=== PATIENT | male | born 1960 | race Caucasian/White ===

== ENCOUNTER 2022-09-17 11:39 | Inpatient (IN) ==
[2022-09-17 13:03] LABS: INR 1.6 (0.9-1.1); Partial Thromboplastin Ratio 1.6; Partial Thromboplastin Time 44.7 Seconds (21.0-31.0); Prothrombin Time 16.4 Seconds (9.0-12.0)
--- NOTE | 2022-09-17 13:04 | Emergency Department Note ---
Impression & Plan End stage liver disease, LGI bleed, CKD (chronic kidney disease), Leukocytosis, Anemia ED Provider Note NAME: RICHARD MONTELONGO AGE: 61 SEX: M : 1960 ARRIVES VIA: Walk-In INFORMANT: Patient, ED PROVIDER(S): Rambo Wagner MD Chief Complaint: Rectal bleeding HPI: Patient presents with family member bedside due to concern for rectal bleeding that began last evening. Patient did have a recent polypectomy and colonoscopy completed on September 03 in [place]. Patient does have a known history of stage IV liver cirrhosis. Patient does have a history of falls but no recent head strike. The patient is not on any lactulose. They were concerned as they noticed bright red blood per rectum. No dark tarry stools. Patient does not take any blood thinning medications. No fevers chest pains or shortness of breath. Patient does complain of weakness. Patient has not drank alcohol in many many years. Patient does follow with a Dr. Egan in [place] and does receive some additional care at [facility] in [place]. ROS: See HPI for pertinent positives and negatives. A total of 10 systems were rev iewed and otherwise negative. Past medical history: See below Surgical history: See below Social history: See below Physical Exam: GENERAL: NAD, wearing a mask, non-toxic. EYE EXAM: Normal conjunctiva. PERRL, no anisocoria and EOM's grossly intact w/o pain. NECK: Supple, no nuchal rigidity, no adenopathy, non-tender. No signs of meningismus. FROM of the neck with good chin to chest and neck extension. No stridor. LUNGS: Clear to auscultation. Normal chest wall mechanics. HEART: NSR, no MRG. ABDOMEN: Abdomen soft, non-tender, normo-active bowel sounds, no masses, no rebound or guarding. BACK: No CVA TTP. SKIN: No rashes and no bruising. UPPER EXTREMITIES: Upper extremities are grossly normal. LOWER EXTREMITIES: Grossly normal, no edema. NEURO EXAM: A&O x3, cranial nerves II-XII grossly intact, normal speech, moves all 4 extremities. Differential diagnoses: Diverticulosis, AVM, coagulopathy, colitis, inflammatory bowel disease, malignancy, [place] tear, esophagitis, peptic ulcer disease, variceal bleed, gastritis, epistaxis, fissure, hemorrhoids, as well as other pathologies. Course: Patient was seen and evaluated the bedside. Full history physical exam was performed. EKG interpreted by me Imaging Studies: See Below Cardiac monitoring: An order was placed for continuous cardiac monitoring. The monitor shows a rate of 97 with sinus rhythm. MDM: Patient was seen due to concern for rectal bleeding. Blood work is obtained along with an ammonia and CT abdomen pelvis. Patient did receive octreotide PPI bolus and drip and normal saline. Patient does have a white count of 16 with a hemoglobin of 13.9. Thrombocytopenia noted at 73. Pro-Chintan was added and Rocephin ordered. The patient does have a decrease in bicarb and anion gap. BUN and creatinine of 66 and 3.35. No priors for comparison. Patient was ordered IV fluids. COVID also ordered. Patient does look and feel improved after IV fluids. The patient ammonia is negative. Pro-Chintan is not elevated. Patient's CT shows possible thickening of the left colon and rectum. Liver is cirrhotic. The patient has splenomegaly and ascites. Patient does not have significant abdominal pain on exam. It [place] the on-call hospitalist Joanne Malagon PA-C and the patient was admitted to the medicine service by Dr. Harding. Past Med/Surg History Medical History Cirrhosis Surgical History H/O rectal polypectomy History of colonoscopy Social History (Updated 09/17/22 @ 14:08 by Rambo Wagner MD) Smoking Status: Current every day smoker Cigarettes Per Day: 1; Second Hand Exposure: No; Do You Dip or Chew Tobacco: No; Tobacco Cessation Education Requested by Patient: No Hx Alcohol Use: No Hx Substance Use: No Preferred Language: Stateless Communication Ability: Effective Beliefs That Will Affect Care: None Current Living Situation: Significant Other Other Information That Helps Us Care for You: No Feels Safe at Home: Yes and No Is there a partner from a previous relationship who is making you feel unsafe now?: No Any Concerns about Your Family Situation: No Would You Like to Speak to Someone About Your Situation: No Safety Concerns: Feels Safe At This Time Assistive Devices: Cane, Glasses, Hearing Aid - Left and Hearing Aid - Right Assistive Devices Comment: glasses and hearing aid not here with patient Allergies Allergies Allergy/AdvReac Type Severity Reaction Status Date / Time INHALED ANTIHISTAMINES Allergy Severe THROAT Uncoded 09/17/22 15:53 SWELLS SHUT Home Meds Home Medications Medication Instructions Recorded Confirmed allopurinol 100 mg tablet 100 mg PO DAILY 09/17/22 09/17/22 ascorbic acid (vitamin C) 500 mg 500 mg PO DAILY 09/17/22 09/17/22 tablet (Vitamin C) buspirone 5 mg tablet 5 mg PO BID 09/17/22 09/17/22 carvedilol 3.125 mg tablet 3.125 mg PO BIDM 09/17/22 09/17/22 cyanocobalamin (vitamin B-12) 500 mcg sublingual DAILY 09/17/22 09/17/22 1,000 mcg sublingual tablet diazepam 10 mg tablet 10 mg PO BID PRN Anxiety 09/17/22 09/17/22 diphenoxylate-atropine 2.5 1 tab PO QID PRN Diarrhea 09/17/22 09/17/22 mg-0.025 mg tablet doxycycline hyclate 100 mg capsule 100 mg PO DIRECTED 09/17/22 09/17/22 duloxetine 30 mg capsule,delayed 30 mg PO BID 09/17/22 09/17/22 release furosemide 20 mg tablet (Lasix) 20 mg PO DAILY 09/17/22 09/17/22 lurasidone 60 mg tablet (Latuda) 60 mg PO DAILY 09/17/22 09/17/22 metformin 1,000 mg tablet 1,000 mg PO BIDM 09/17/22 09/17/22 metoprolol succinate 100 mg 100 mg PO DAILY 09/17/22 09/17/22 tablet,extended release 24 hr pantoprazole 40 mg tablet,delayed 40 mg PO DAILY 09/17/22 09/17/22 release pregabalin 300 mg capsule 300 mg PO BID 09/17/22 09/17/22 spironolactone 25 mg tablet 25 mg PO DAILY 09/17/22 09/17/22 tamsulosin 0.4 mg capsule 0.4 mg PO HS 09/17/22 09/17/22 topiramate 100 mg tablet 100 mg PO BID 09/17/22 09/17/22 Results & Data (ED) Vital Signs Vital Signs - 24 hr 09/17/22 11:45 09/17/22 12:58 09/17/22 14:00 Pulse Rate 52 L Pulse Rate [Apical] 98 H 74 Respiratory Rate 18 15 16 Blood Pressure 104/73 Blood Pressure [Right Arm] 127/82 125/62 Blood Pressure Mean 83 Blood Pressure Mean [Right Arm] 97 83 Blood Pressure Position Sitting Pulse Oximetry 99 96 98 Oxygen Delivery Method Room Air Room Air Room Air Sepsis Recent Fever Within 48 Hours No Sepsis New/Unexplained Change in Mental Status No Sepsis Action Taken by Nursing No Action Required Home Medications Current Medication List: was personally reviewed by me Laboratory Data Attestation: I reviewed the patient's lab results. Result diagrams: 09/17/22 11:59 09/17/22 16:47 Lab Results 09/17/22 09/17/22 09/17/22 Range/Units 11:59 11:59 11:59 WBC 16.54 H (4.8-10.8) K/ul RBC 4.74 (4.63-6.08) M/uL Hgb 13.9 L (14.0-18.0) g/dl Hct 38.2 L (40.1-51.0) % MCV 80.6 (80.0-100.0) fL MCH 29.3 (25.0-34.0) pg MCHC 36.4 H (32.0-36.0) g/dL RDW Std Deviation 49.1 H (36.4-46.3) fL RDW Coeff of Suzanne 17.0 H (11.5-14.5) % Plt Count 73 L (130-400) K/uL Platelet Estimate Decreased L (Normal) PT 16.4 H (9.0-12.0) Seconds INR 1.6 H (0.9-1.1) APTT 44.7 H (21.0-31.0) Seconds PTT Ratio 1.6 Sodium 140 (136-145) mmol/L Potassium 3.7 (3.5-5.1) mmol/L Chloride 109 H (98-107) mmol/L Carbon Dioxide 19 L (21-32) mmol/L Anion Gap 12 H (3-11) BUN 66 H (6-23) mg/dl Creatinine 3.35 H (0.6-1.4) mg/dl Est Cr Clr Drug Dosing Not Reportable Est GFR ( Amer) 22.0 ml/min Est GFR (Non-Af Amer) 19.0 ml/min BUN/Creatinine Ratio 19.7 (10-20) Glucose 175 H (70-99(Fasting)) mg/dl Calcium 9.1 (8.5-10.1) mg/dl Total Bilirubin 2.6 H (0.2-1.0) mg/dl AST 51 H (13-39) U/L ALT 40 (7-52) U/L Alkaline Phosphatase 152 H (34-104) U/L Ammonia (18-72) umol/L Total Protein 6.9 (6.0-8.3) gm/dl Albumin 3.2 L (3.4-5.0) gm/dl Globulin 3.7 (2.5-4.0) gm/dl Albumin/Globulin Ratio 0.9 (0.9-2) SARS-CoV-2, RNA, NAAT (NEGATIVE) Blood Type Antibody Screen 09/17/22 09/17/22 09/17/22 Range/Units 12:55 13:51 15:16 WBC (4.8-10.8) K/ul RBC (4.63-6.08) M/uL Hgb (14.0-18.0) g/dl Hct (40.1-51.0) % MCV (80.0-100.0) fL MCH (25.0-34.0) pg MCHC (32.0-36.0) g/dL RDW Std Deviation (36.4-46.3) fL RDW Coeff of Suzanne (11.5-14.5) % Plt Count (130-400) K/uL Platelet Estimate (Normal) PT (9.0-12.0) Seconds INR (0.9-1.1) APTT (21.0-31.0) Seconds PTT Ratio Sodium (136-145) mmol/L Potassium (3.5-5.1) mmol/L Chloride (98-107) mmol/L Carbon Dioxide (21-32) mmol/L Anion Gap (3-11) BUN (6-23) mg/dl Creatinine (0.6-1.4) mg/dl Est Cr Clr Drug Dosing Est GFR ( Amer) ml/min Est GFR (Non-Af Amer) ml/min BUN/Creatinine Ratio (10-20) Glucose (70-99(Fasting)) mg/dl Calcium (8.5-10.1) mg/dl Total Bilirubin (0.2-1.0) mg/dl AST (13-39) U/L ALT (7-52) U/L Alkaline Phosphatase (34-104) U/L Ammonia 34.0 (18-72) umol/L Total Protein (6.0-8.3) gm/dl Albumin (3.4-5.0) gm/dl Globulin (2.5-4.0) gm/dl Albumin/Globulin Ratio (0.9-2) SARS-CoV-2, RNA, NAAT NEGATIVE (NEGATIVE) Blood Type O Positive Antibody Screen NEGATIVE Administered Medications Pantoprazole Sodium 40 mg/ (Dextrose) 100 mls @ 20 mls/hr IV Q5H JASON Stop: 10/17/22 13:44 Last Admin: 09/17/22 16:07 Dose: 8 mg/hr, 20 mls/hr Documented By: ML Lactated Ringer's (Lr) 1,000 mls @ 125 mls/hr IV .Q8H JASON Stop: 09/18/22 01:40 Last Admin: 09/17/22 18:35 Dose: 125 mls/hr Documented By: LCS Discontinued Medications Sodium Chloride (Nss 1000ml) 1,000 mls @ 999 mls/hr IV .Q1H1M ONE Stop: 09/17/22 14:28 Last Infusion: 09/17/22 15:35 Dose: 0 mls/hr Documented By: Admin: 09/17/22 13:48 Dose: 999 mls/hr Documented By: ML Pantoprazole Sodium (Protonix Bolus/Drip) 0 mls @ 1 mls/hr IV ONE STA Stop: 09/17/22 13:29 Last Admin: 09/17/22 16:11 Dose: Not Given Documented By: ML Pantoprazole Sodium 80 mg/ (Dextrose) 120 mls @ 400 mls/hr IV NOW ONE Stop: 09/17/22 13:45 Last Infusion: 09/17/22 15:35 Dose: 0 mls/hr Documented By: Admin: 09/17/22 13:55 Dose: 400 mls/hr Documented By: ML Octreotide Acetate 100 mcg/ (Syringe) 10 mls @ 3 mls/min IV NOW STA Stop: 09/17/22 13:31 Last Admin: 09/17/22 13:55 Dose: 3 mls/min Documented By: DICK Ceftriaxone Sodium (Rocephin) 2,000 mg in 70 mls @ 140 mls/hr IV NOW STA Stop: 09/17/22 14:36 Last Infusion: 09/17/22 16:11 Dose: 0 mls/hr Documented By: Admin: 09/17/22 15:41 Dose: 140 mls/hr Documented By: DICK Miscellaneous (Stat Iv) 1 each N/A NOW STA Stop: 09/17/22 13:29 Last Admin: 09/17/22 16:11 Dose: Not Given Documented By: DICK Imaging Data Radiologist's Impression: Abdomen/Pelvis CT 09/17/22 13:28 CT SCAN OF THE ABDOMEN AND PELVIS WITHOUT IV CONTRAST CLINICAL HISTORY: Hematochezia. Cirrhosis. COMPARISON STUDY: No priors. TECHNIQUE: CT scan of the abdomen and pelvis is performed from the lung bases to the proximal femora. Images are reviewed in the axial, sagittal, and coronal planes. IV contrast was not administered for this examination. Note that the examination was performed in suboptimal fashion without oral and IV contrast. A dose lowering technique was utilized adhering to the principles of ALARA. CT DOSE: 506.85 mGycm FINDINGS: Lung bases: The heart is normal in size and without pericardial effusion. The coronary arteries are densely calcified. The lung bases are clear. There is a small to moderate hiatal hernia. Esophageal varices are suspected. Liver: The unenhanced liver is cirrhotic morphology and heterogeneous in attenuation. There is hypertrophy of the left lobe and nodularity of the surface contour. There is no intrahepatic biliary ductal dilatation. There is recanalization of the periumbilical vein. Collateral vessels are noted in the upper abdomen and retroperitoneum. Gallbladder: There are calcified gallstones without CT evidence of acute cholecystitis. Spleen: The spleen is enlarged measuring 16.2 cm in length. Pancreas: The unenhanced pancreas is atrophic and grossly unremarkable. Adrenal glands: Unremarkable. Kidneys: The unenhanced kidneys demonstrate cortical atrophy and/or without hydronephrosis. There are no renal calculi identified. There is no evidence of contour deforming renal mass lesion. Abdominal vasculature: The abdominal aorta is normal in course and caliber noting moderate atherosclerotic calcification. Bowel: No bowel obstruction is seen. Question wall thickening of the rectum and left colon with mild surrounding infiltration. There is mild diverticulosis of the right colon without CT evidence of acute diverticulitis. The appendix is not identified and reported surgically absent. Peritoneum: There is a small volume of abdominopelvic ascites. No in traperitoneal free air is seen. Lymphadenopathy: None. Pelvic viscera: The prostate gland is diminutive and heterogeneous. The bladder wall is mildly thickened/trabeculated indicating chronic outlet obstruction. Skeletal structures: The skeletal structures are osteopenic. There is postoperative and spondylotic change seen in the lumbar spine there No lytic or blastic lesions are seen. There is a subacute to chronic right transverse process fracture of L3. There are subacute to chronic right posterior rib fractures. IMPRESSION: 1. Significantly suboptimal examination without oral and IV contrast. 2. Question wall thickening of the left colon and rectum with surrounding infiltration. Correlate clinically for evidence of a nonspecific proctocolitis. 3. The liver is cirrhotic in morphology and heterogeneous in attenuation. 4. Splenomegaly, ascites, and abdominal collaterals indicate portal hypertension. 5. Cholelithiasis. 6. Additional findings as above. ACT 112: Negative or not required by law. Electronically signed by: Hawk Mendoza M.D. 09/17/2022 2:52 PM Discharge Plan Visit Data Chief Complaint: Rectal Bleed Stated Complaint: HEMORAGE , RECTAL ED Provider: Rambo Wagner Discharge Problem: End stage liver disease, LGI bleed, CKD (chronic kidney disease), Leukocytosis, Anemia Patient Disposition: Admitted As Inpatient Discharge Instructions Interventions: ED Discharge Assessment Last Done: 09/17/22 17:01
[2022-09-17 13:09] LABS: Alanine Aminotransferase 40 U/L (7-52); Albumin Globulin Ratio 0.9 (0.9-2); Albumin Level 3.2 gm/dl (3.4-5.0); Alkaline Phosphatase 152 U/L (34-104); Anion Gap 12 (3-11); Aspartate Aminotransferase 51 U/L (13-39); BUN Creatinine Ratio 19.7 (10-20); Bilirubin,Total 2.6 mg/dl (0.2-1.0); Blood Urea Nitrogen 66 mg/dl (6-23); Calcium 9.1 mg/dl (8.5-10.1); Carbon Dioxide 19 mmol/L (21-32); Chloride 109 mmol/L (98-107); Globulin 3.7 gm/dl (2.5-4.0); Glucose 175 mg/dl (70-99(Fasting)); Potassium 3.7 mmol/L (3.5-5.1); Sodium 140 mmol/L (136-145); Total Protein 6.9 gm/dl (6.0-8.3)
[2022-09-17 13:21] LABS: Hematocrit (blood only) 38.2 % (40.1-51.0); Hemoglobin 13.9 g/dl (14.0-18.0); Mean Corpuscular Hemoglobin 29.3 pg (25.0-34.0); Mean Corpuscular Hgb Conc 36.4 g/dL (32.0-36.0); Mean Corpuscular Volume 80.6 fL (80.0-100.0); Platelet Count 73 K/uL (130-400); Platelet Estimate Decreased (Normal); RDW Standard Deviation 49.1 fL (36.4-46.3); Red Blood Count 4.74 M/uL (4.63-6.08); White Blood Count 16.54 K/ul (4.8-10.8)
[2022-09-17] MEDS ORDERED: SODIUM CHLORIDE 0.9% 1000ML 1,000 ML IV ONE (13:28)
[2022-09-17] MEDS ORDERED: STAT IV STA (13:28)
[2022-09-17] MEDS ORDERED: OCTREOTIDE ACETATE 100 MCG in SYRINGE 9 ML IV STA (13:28)
[2022-09-17] MEDS ORDERED: PANTOPRAZOLE BOLUS/DRIP 1 EACH IV STA (13:28)
[2022-09-17] MEDS ORDERED: PANTOprazole 80 MG in DEXTROSE 5% 100 ML IV ONE (13:28)
[2022-09-17] MEDS ORDERED: cefTRIAXone SODIUM 2,000 MG/70 ML BAG IV STA (14:07)
--- NOTE | 2022-09-17 14:53 | CT Scan Report ---
CT SCAN OF THE ABDOMEN AND PELVIS WITHOUT IV CONTRAST CLINICAL HISTORY: Hematochezia. Cirrhosis. COMPARISON STUDY: No priors. TECHNIQUE: CT scan of the abdomen and pelvis is performed from the lung bases to the proximal femora. Images are reviewed in the axial, sagittal, and coronal planes. IV contrast was not administered for this examination. Note that the examination was performed in suboptimal fashion without oral and IV contrast. A dose lowering technique was utilized adhering to the principles of ALARA. CT DOSE: 506.85 mGycm FINDINGS: Lung bases: The heart is normal in size and without pericardial effusion. The coronary arteries are d ensely calcified. The lung bases are clear. There is a small to moderate hiatal hernia. Esophageal va rices are suspected. Liver: The unenhanced liver is cirrhotic morphology and heterogeneous in attenuation. There is hypert rophy of the left lobe and nodularity of the surface contour. There is no intrahepatic biliary ductal dilatation. There is recanalization of the periumbilical vein. Collateral vessels are noted in the u pper abdomen and retroperitoneum. Gallbladder: There are calcified gallstones without CT evidence of acute cholecystitis. Spleen: The spleen is enlarged measuring 16.2 cm in length. Pancreas: The unenhanced pancreas is atrophic and grossly unremarkable. Adrenal glands: Unremarkable. Kidneys: The unenhanced kidneys demonstrate cortical atrophy and/or without hydronephrosis. There are no renal calculi identified. There is no evidence of contour deforming renal mass lesion. Abdominal vasculature: The abdominal aorta is normal in course and caliber noting moderate atheroscle rotic calcification. Bowel: No bowel obstruction is seen. Question wall thickening of the rectum and left colon with mild surrounding infiltration. There is mild diverticulosis of the right colon without CT evidence of acut e diverticulitis. The appendix is not identified and reported surgically absent. Peritoneum: There is a small volume of abdominopelvic ascites. No intraperitoneal free air is seen. Lymphadenopathy: None. Pelvic viscera: The prostate gland is diminutive and heterogeneous. The bladder wall is mildly thicke collin/trabeculated indicating chronic outlet obstruction. Skeletal structures: The skeletal structures are osteopenic. There is postoperative and spondylotic c hange seen in the lumbar spine there No lytic or blastic lesions are seen. There is a subacute to chr onic right transverse process fracture of L3. There are subacute to chronic right posterior rib fract ures. IMPRESSION: 1. Significantly suboptimal examination without oral and IV contrast. 2. Question wall thickening of the left colon and rectum with surrounding infiltration. Correlate cli nically for evidence of a nonspecific proctocolitis. 3. The liver is cirrhotic in morphology and heterogeneous in attenuation. 4. Splenomegaly, ascites, and abdominal collaterals indicate portal hypertension. 5. Cholelithiasis. 6. Additional findings as above. ACT 112: Negative or not required by law. Electronically signed by: Hawk Mendoza M.D. 09/17/2022 2:52 PM
--- NOTE | 2022-09-17 15:31 | History & Physical Report ---
Date of Service September 17, 2022 Assessment & Plan (1) End stage liver disease: Plan: - Patient receives care from [facility] in [place], in process of obtaining records. - Colonoscopy with polypectomy 09/03/2022 in [place]. - CTAP: Question wall thickening of the left colon and rectum with surrounding infiltration. Correlate clinically for evidence of a nonspecific proctocolitis. - Ammonia level 34. - Meld score: 27, 19.6% estimated 3-month mortality. - INR 1.6, T bili 2.6, sodium 140, creatinine 3.35, platelets 73 - Obtaining outpt records for further planning. (2) LGI bleed: Plan: - BRBPR since last evening. No CP, palpitaions, SOB, syncope, pain. - Colonoscopy with polypectomy 09/03/2022 in [place]. - Hgb 13.9 on admission. - Type and screen obtained in ED. - Trend H/H. - Started on PPI drip, octreotide, Rocephin in ED. - Continue IV Protonix and octreotide, as well as Rocephin given elevated WBC. Continue. - GI consulted. (3) CKD (chronic kidney disease): Plan: - Cr 3.36, unsure if new or chronic. Obtaining records. - IVF repletion, repeat BMP in AM. - bicarb 19, AG 12, repeat after IVF in ED. - Avoid nephrotoxins, renally dose as able. (4) Leukocytosis: Plan: - WBC 16, unknown etiology, reactive vs infection, covered in ED prophylactically in Rocephin, will continue, UA pending, CT with possible protocolitis. (5) Anemia: Plan: - Hgb 13.9, unknown baseline, trend as above for LGIB. Plan - Admit to PCU. - SCDS, no chemoppx given LGI blled. History of Present Illness Chief Complaint: bloody diarrhea x 1 day Primary Care Provider: Almas Egan Darius Carter is a 61-year-old male with a past medical history of end-stage liver cirrhosis with known esophageal varices, low back pain, gout, venous stasis, anxiety,, hypertension, diabetes with neuropathy, migraine headaches who presents today with rectal bleeding that began last night. Had a polypectomy removed on September 03 in [place], had been doing well since then, however last night noted bright red blood that had soaked through his diaper and pants. He notes over the last 2 months he has had frequent nonbloody, nonpainful diarrhea and believes that is the reason he had a colonoscopy performed. He also has a 35 pound weight loss. He has had gait difficulties and weakness, no fever chills, abdominal pain, chest pain, shortness of breath, palpitations, hematochezia. Upon presentation to the ED, patient's vital signs have been within normal limits and stable. No prior labs available for reference, he has an elevated WBC at 16, Hgb 13.9, platelet count 73. INR 1.6. Bicarb slightly decreased 19, AG 12, BUN 66, creatinine 3.35. Sodium 140, no electrolyte abnormalities. Glucose elevated 175. T bili 2.6, AST 51, ammonia pending. COVID-negative. CT of the abdomen pelvis is suboptimal as it was done without oral and IV contrast, there is questionable thickening of the left colon and rectum with surrounding infiltration cirrhotic liver, splenomegaly, ascites, abdominal collaterals indicative of portal hypertension. Cholelithiasis. Subacute to chronic right transverse process fracture of L3. Subacute/chronic right posterior rib fractures. ED course: Protonix gtt w/ bolus, 1L NS bolus, octreotide, Rocephin. Allergies Allergy/AdvReac Type Severity Reaction Status Date / Time INHALED ANTIHISTAMINES Allergy Severe THROAT Uncoded 09/17/22 15:53 SWELLS SHUT Home Medications Medication Instructions Recorded Confirmed Type allopurinol 100 mg tablet 100 mg PO DAILY 09/17/22 09/17/22 History ascorbic acid (vitamin C) 500 mg 500 mg PO DAILY 09/17/22 09/17/22 History tablet (Vitamin C) buspirone 5 mg tablet 5 mg PO BID 09/17/22 09/17/22 History carvedilol 3.125 mg tablet 3.125 mg PO BIDM 09/17/22 09/17/22 History cyanocobalamin (vitamin B-12) 500 mcg sublingual DAILY 09/17/22 09/17/22 History 1,000 mcg sublingual tablet diazepam 10 mg tablet 10 mg PO BID PRN Anxiety 09/17/22 09/17/22 History diphenoxylate-atropine 2.5 1 tab PO QID PRN Diarrhea 09/17/22 09/17/22 History mg-0.025 mg tablet doxycycline hyclate 100 mg capsule 100 mg PO DIRECTED 09/17/22 09/17/22 History duloxetine 30 mg capsule,delayed 30 mg PO BID 09/17/22 09/17/22 History release furosemide 20 mg tablet (Lasix) 20 mg PO DAILY 09/17/22 09/17/22 History lurasidone 60 mg tablet (Latuda) 60 mg PO DAILY 09/17/22 09/17/22 History metformin 1,000 mg tablet 1,000 mg PO BIDM 09/17/22 09/17/22 History metoprolol succinate 100 mg 100 mg PO DAILY 09/17/22 09/17/22 History tablet,extended release 24 hr pantoprazole 40 mg tablet,delayed 40 mg PO DAILY 09/17/22 09/17/22 History release pregabalin 300 mg capsule 300 mg PO BID 09/17/22 09/17/22 History spironolactone 25 mg tablet 25 mg PO DAILY 09/17/22 09/17/22 History tamsulosin 0.4 mg capsule 0.4 mg PO HS 09/17/22 09/17/22 History topiramate 100 mg tablet 100 mg PO BID 09/17/22 09/17/22 History Past Med/Surg History Medical History Cirrhosis Surgical History H/O rectal polypectomy History of colonoscopy Social History (Updated 09/17/22 @ 14:08 by Rambo Wagner MD) Smoking Status: Current every day smoker Hx Alcohol Use: No Hx Substance Use: No Preferred Language: Occitan Feels Safe at Home: Yes Review of Systems Review of Systems: Constitutional: weakness, fatigue, 35 lb manuela loss x 2 months; No fever/chills , myalgias, night sweats Eyes: No diplopia, no worsening or blurred vision ENT: normal hearing, no trouble swallowing Respiratory: No cough, sputum, dyspnea at rest or on exertion Cardiovascular: No chest pain, tightness or palpitations Abdomen: 2 months or diarrhea with copious BRBPR since last evening; No pain, nausea, vomiting, constipation, melena, hematemesis : Denies dysuria, hematuria, increased urgency/frequency, urinary retention Musculoskeletal: No joint pain, calf pain, swelling Neurologic: No weakness, numbness/tingling, or balance problems Psychiatric: No anxiety or depression Skin: No rash or itch Physical Exam Physical Exam: General: awake, alert, no apparent distress, appears chronically ill Head: Normocephalic, atraumatic ENT: PERRL, EOMI, no pharyngeal exudate, mucous membranes moist Chest: Clear to auscultation, on room air, no adventitious breath sounds Cardiac: Regular rate and rhythm, no murmur, no JVD, normal peripheral pulses, good capillary refill Abdominal: Secular epigastric nodule/mass palpable on exam, with severe pain on palpation; NABS x 4 quadrants, abdomen is otherwise soft, nontender to palpation, no rebound, guarding or tenderness Extremities: Normal inspection, no peripheral edema or erythema, calfs nontender to palpation Psych: Normal mood and affect Neuro: AAO x 3, strength intact bilaterally and rated 5/5, no motor deficits, speech is clear, no peripheral sensory deficits Skin: no rash or erythema Results & Data Results & Data ([facility]) Vital Signs (Past 12 Hours) Vital Signs Pulse Pulse Resp BP BP Pulse Ox O2 Del Method 09/17/22 12:58 98 H 15 127/82 96 Room Air 09/17/22 11:45 52 L 18 104/73 99 Room Air Laboratory Results Abnormal lab results 09/17/22 09/17/22 09/17/22 Range/Units 11:59 11:59 11:59 WBC 16.54 H (4.8-10.8) K/ul Hgb 13.9 L (14.0-18.0) g/dl Hct 38.2 L (40.1-51.0) % MCHC 36.4 H (32.0-36.0) g/dL RDW Std Deviation 49.1 H (36.4-46.3) fL RDW Coeff of Suzanne 17.0 H (11.5-14.5) % Plt Count 73 L (130-400) K/uL Platelet Estimate Decreased L (Normal) PT 16.4 H (9.0-12.0) Seconds INR 1.6 H (0.9-1.1) APTT 44.7 H (21.0-31.0) Seconds Chloride 109 H (98-107) mmol/L Carbon Dioxide 19 L (21-32) mmol/L Anion Gap 12 H (3-11) BUN 66 H (6-23) mg/dl Creatinine 3.35 H (0.6-1.4) mg/dl Glucose 175 H (70-99(Fasting)) mg/dl Total Bilirubin 2.6 H (0.2-1.0) mg/dl AST 51 H (13-39) U/L Alkaline Phosphatase 152 H (34-104) U/L Albumin 3.2 L (3.4-5.0) gm/dl Diagnostic Findings Abdomen/Pelvis CT 09/17/22 13:28 CT SCAN OF THE ABDOMEN AND PELVIS WITHOUT IV CONTRAST CLINICAL HISTORY: Hematochezia. Cirrhosis. COMPARISON STUDY: No priors. TECHNIQUE: CT scan of the abdomen and pelvis is performed from the lung bases to the proximal femora. Images are reviewed in the axial, sagittal, and coronal planes. IV contrast was not administered for this examination. Note that the examination was performed in suboptimal fashion without oral and IV contrast. A dose lowering technique was utilized adhering to the principles of ALARA. CT DOSE: 506.85 mGycm FINDINGS: Lung bases: The heart is normal in size and without pericardial effusion. The coronary arteries are densely calcified. The lung bases are clear. There is a small to moderate hiatal hernia. Esophageal varices are suspected. Liver: The unenhanced liver is cirrhotic morphology and heterogeneous in attenuation. There is hypertrophy of the left lobe and nodularity of the surface contour. There is no intrahepatic biliary ductal dilatation. There is recanalization of the periumbilical vein. Collateral vessels are noted in the upper abdomen and retroperitoneum. Gallbladder: There are calcified gallstones without CT evidence of acute cholecystitis. Spleen: The spleen is enlarged measuring 16.2 cm in length. Pancreas: The unenhanced pancreas is atrophic and grossly unremarkable. Adrenal glands: Unremarkable. Kidneys: The unenhanced kidneys demonstrate cortical atrophy and/or without hydronephrosis. There are no renal calculi identified. There is no evidence of contour deforming renal mass lesion. Abdominal vasculature: The abdominal aorta is normal in course and caliber noting moderate atherosclerotic calcification. Bowel: No bowel obstruction is seen. Question wall thickening of the rectum and left colon with mild surrounding infiltration. There is mild diverticulosis of the right colon without CT evidence of acute diverticulitis. The appendix is not identified and reported surgically absent. Peritoneum: There is a small volume of abdominopelvic ascites. No intraperitoneal free air is seen. Lymphadenopathy: None. Pelvic viscera: The prostate gland is diminutive and heterogeneous. The bladder wall is mildly thickened/trabeculated indicating chronic outlet obstruction. Skeletal structures: The skeletal structures are osteopenic. There is postoperative and spondylotic change seen in the lumbar spine there No lytic or blastic lesions are seen. There is a subacute to chronic right transverse process fracture of L3. There are subacute to chronic right posterior rib fractures. IMPRESSION: 1. Significantly suboptimal examination without oral and IV contrast. 2. Question wall thickening of the left colon and rectum with surrounding infiltration. Correlate clinically for evidence of a nonspecific proctocolitis. 3. The liver is cirrhotic in morphology and heterogeneous in attenuation. 4. Splenomegaly, ascites, and abdominal collaterals indicate portal hypertension. 5. Cholelithiasis. 6. Additional findings as above. ACT 112: Negative or not required by law. Electronically signed by: Hawk Mendoza M.D. 09/17/2022 2:52 PM ECG Additional Comments: Sinus tachycardia with occasional Premature ventricular complexes Abnormal ECG No previous ECGs available Confirmed by Denis Royal ([id number]) on 09/17/2022 3:36:58 PM Supervising Physician Co-Signing Physician Notes Patient seen and examined, chart reviewed, case discussed with Joanne Malagon PA-C and I agree with the assessment and plan as above except as otherwise noted Labs and images reviewed Darius is a 61-year-old male with a past medical history of stage IV liver cirrhosis with colonoscopy 09/03/2022 in [place] with polypectomy who presents with an episode of rectal bleeding. Denies melena, has bright red blood per rectum. Has not on any blood thinners. PCP is [facility] Dr. Julisa Peralta. EKG: Sinus tachycardia, QTC 481, T wave inversions in V4/V5/V6/V3/I/II no territorial ST segment elevation/depression. At bedside patient reports that he is having bleeding per rectum, but is without lightheadedness/dizziness/fever/chills. abdomen is not focally tender to palpation, heart rate is regular and tachycardic. Breathing is unlabored. History of cirrhosis, patient has not been told he has varices previously although he is not sure if he could have these. On admission AST 51, ALT 40, alk phos 152, bilirubin 2.6 with albumin 3.2. Ammonia is normal, creatinine is 3.35 with an unknown baseline. Sodium 140. INR is 1.[address] as noted above. Patient is covered for SBP prophylaxis with Rocephin. PPI drip continued, octreotide given as unclear if varices. GI consulted. Patient is normally seen by [facility] Stool PCR pending for nonspecific proct ocolitis. Hemodynamically stable at bedside. Continue medications as above. Did discuss with patient's PCPs office were willing to fax a updated med list which was used for med reconciliation. For remaining records consent for record transfer signed by patient, faxed to [facility]. Pending record faxes to [facility] Care Time/CCT Total # of Minutes Spent Total Time Spent with Patient: Total time spent is greater than 50% in coordination of care (as documented) at patient's floor/unit and/or counseling patient: Coding Level of Care Code 51587 Initial Inpt Care Lvl 3 Diagnoses End stage liver disease K72.10 LGI bleed K92.2 CKD (chronic kidney disease) N18.9 Leukocytosis D72.829 Anemia D64.9
--- NOTE | 2022-09-17 15:37 | Electrocardiogram Report ---
Test Reason : Blood Pressure : / mmHG Vent. Rate : 104 BPM Atrial Rate : 104 BPM P-R Int : 140 ms QRS Dur : 092 ms QT Int : 366 ms P-R-T Axes : 065 051 233 degrees QTc Int : 481 ms Sinus tachycardia with occasional Premature ventricular complexes Abnormal ECG No previous ECGs available Confirmed by Denis Royal ([id number]) on 09/17/2022 3:36:58 PM Referred By: Abhijeet Chaudhry Confirmed By:Denis Royal
[2022-09-17] MEDS: PANTOprazole 40 MG in DEXTROSE 5% 100 ML IV SCH ×2 (16:07→20:15)
[2022-09-17 17:31] LABS: BUN Creatinine Ratio 20.3 (10-20); Calcium 8.5 mg/dl (8.5-10.1); Creatinine Clr Calc Pharmacy 23.5 ml/min; Est GFR (African American) 22.9 ml/min; Est GFR (Non-African American) 19.7 ml/min; Potassium 3.6 mmol/L (3.5-5.1)
[2022-09-17] MEDS ORDERED: PHARMACY GLYCEMIC MGMT CONSULT PRN (17:41)
[2022-09-17] MEDS ORDERED: diazePAM 5 MG TABLET PO PRN (17:41)
[2022-09-17] MEDS ORDERED: LACTATED RINGER'S 1,000 ML IV SCH (17:41)
[2022-09-17] MEDS ORDERED: DEXTROSE 50% 50 ML SYRINGE IV PRN (17:41)
[2022-09-17] MEDS ORDERED: GLUCAGON FOR INJ 1 MG VIAL SQ PRN (17:41)
[2022-09-17] MEDS ORDERED: GLUCOSE 10 TAB/TUBE PO PRN (17:41)
[2022-09-17] MEDS ORDERED: GLUCOSE 40% GEL 15 GM TUBE PO PRN (17:41)
[2022-09-17] MEDS ORDERED: POLYETHYLENE (MIRALAX) 17 GM PACK PO PRN (17:41)
[2022-09-17] MEDS ORDERED: ONDANSETRON INJ 2 MG/ML 2 ML VIAL IV PRN (17:41)
[2022-09-17] MEDS ORDERED: CARBOHYDRATES FOR HYPOGLYCEMIA PO PRN (17:41)
[2022-09-17] MEDS ORDERED: DIPHENOXYLATE/ATROPINE 2.5/0.025MG TAB PO PRN (17:41)
[2022-09-17] MEDS ORDERED: ALUMINUM/MAGNESIUM SUSP 30 ML UDC PO PRN (17:41)
[2022-09-17] MEDS: TAMSULOSIN HCL 0.4 MG CAP PO SCH (20:15)
[2022-09-17] MEDS: TOPIRAMATE 100 MG TAB PO SCH (20:15)
[2022-09-17] MEDS: busPIRone 5 MG TAB PO SCH (20:16)
[2022-09-17] MEDS: PREGABALIN 150 MG CAP PO SCH (20:16)
[2022-09-17] MEDS: DULoxetine HCL 30 MG CAP PO SCH (20:16)
[2022-09-17] MEDS ORDERED: PANTOprazole 40 MG in SYRINGE 0 ML IV SCH (21:00)
[2022-09-17] MEDS: INSULIN ASPART PER UNIT SC SCH (21:02)
[2022-09-17 21:09] LABS: Hematocrit (blood only) 33.9 % (40.1-51.0); Hemoglobin 12.5 g/dl (14.0-18.0)
[2022-09-18] MEDS: PANTOprazole 40 MG in DEXTROSE 5% 100 ML IV SCH ×5 (01:51→19:56)
[2022-09-18 07:25] LABS: Albumin Globulin Ratio 0.9 (0.9-2); Albumin Level 2.7 gm/dl (3.4-5.0); Bilirubin,Total 1.6 mg/dl (0.2-1.0); Calcium 8.1 mg/dl (8.5-10.1); Creatinine Clr Calc Pharmacy 25.7 ml/min; Est GFR (African American) 25.6 ml/min; Est GFR (Non-African American) 22.1 ml/min; Magnesium 1.2 mg/dl (1.7-2.4); Potassium 3.4 mmol/L (3.5-5.1); Total Protein 5.7 gm/dl (6.0-8.3)
[2022-09-18 07:31] LABS: Basophils # (auto) 0.06 K/uL (0-0.2); Basophils % (auto) 0.6 %; Echinocytes 1+; Eosinophils # (auto) 0.02 K/uL (0-0.50); Eosinophils % (auto) 0.2 %; Hematocrit (blood only) 31.3 % (40.1-51.0); Hemoglobin 11.8 g/dl (14.0-18.0); Immature Granulocytes # (auto) 0.04 K/uL (0.00-0.02); Immature Granulocytes % (auto) 0.4 %; Lymphocytes # (auto) 0.72 K/uL (1.2-3.4); Lymphocytes % (auto) 7.6 %; Mean Corpuscular Hemoglobin 29.6 pg (25.0-34.0); Mean Corpuscular Hgb Conc 37.7 g/dL (32.0-36.0); Mean Corpuscular Volume 78.4 fL (80.0-100.0); Monocytes # (auto) 0.84 K/uL (0.24-0.82); Monocytes % (auto) 8.9 %; Neutrophils # (auto) 7.81 K/uL (1.4-6.5); Neutrophils % (auto) 82.3 %; Platelet Count 28 K/uL (130-400); Platelet Estimate Signific. Decreased (Normal); RDW Coefficient of Variation 16.7 % (11.5-14.5); RDW Standard Deviation 47.8 fL (36.4-46.3); Red Blood Count 3.99 M/uL (4.63-6.08); White Blood Count 9.49 K/ul (4.8-10.8)
[2022-09-18 09:13] LABS: Estimated Average Glucose 114 mg/dl; Hemoglobin A1C 5.6 % (4.5-5.6)
[2022-09-18] MEDS: LURASIDONE HCL 40 MG TAB PO SCH (09:14)
[2022-09-18] MEDS: ASCORBIC ACID 500 MG TAB PO SCH (09:15)
[2022-09-18] MEDS: DULoxetine HCL 30 MG CAP PO SCH ×2 (09:15→19:55)
[2022-09-18] MEDS: METOPROLOL SUCC 50MG EXT REL TAB PO SCH (09:15)
[2022-09-18] MEDS: allopurinoL 100 MG TAB PO SCH (09:15)
[2022-09-18] MEDS: busPIRone 5 MG TAB PO SCH ×2 (09:15→19:55)
[2022-09-18] MEDS: TOPIRAMATE 100 MG TAB PO SCH ×2 (09:15→19:55)
[2022-09-18] MEDS: CYANOCOBALAMIN (B-12) 500 MCG TABLET PO SCH (09:15)
[2022-09-18] MEDS: PREGABALIN 150 MG CAP PO SCH ×2 (09:17→19:55)
[2022-09-18] MEDS ORDERED: STAT IV STA (10:26)
[2022-09-18] MEDS ORDERED: PHYTONADIONE 5 MG in DEXTROSE 5% 50 ML IV ONE (10:26)
[2022-09-18 11:09] LABS: Hematocrit (blood only) 34.2 % (40.1-51.0); Hemoglobin 12.6 g/dl (14.0-18.0); Mean Corpuscular Hemoglobin 29.9 pg (25.0-34.0); Mean Corpuscular Hgb Conc 36.8 g/dL (32.0-36.0); Mean Platelet Volume 12.4 fL (9.4-12.4); Platelet Count 44 K/uL (130-400); Platelet Estimate Decreased (Normal); RDW Coefficient of Variation 17.1 % (11.5-14.5); RDW Standard Deviation 49.9 fL (36.4-46.3); Red Blood Count 4.22 M/uL (4.63-6.08); White Blood Count 12.32 K/ul (4.8-10.8)
[2022-09-18] MEDS: OCTREOTIDE ACETATE 500 MCG in DEXTROSE 5% 100 ML IV SCH ×2 (11:22→19:56)
--- NOTE | 2022-09-18 11:35 | Gastrointestinal Consultation ---
Date of Consultation September 18, 2022 Assessment & Plan (1) End stage liver disease: (2) LGI bleed: Plan cirrhosis with hematochezia, stable hgb, suspect diverticular bleeding, no hematemesis unlikely variceal bleed. Recs: continue octreotide and protonix drips for now continue abx for 7 days total for GI bleeding in cirrhotic for ppx NPO today, clear liquid diet tomorrow if stable prep with golytely tomorrow night at 6 pm, plan for EGD and colonoscopy thursday 09/20, NPO post midnight tuesday night except for prep supportive care, transfuse platelets to >50K Thank you for allowing me to participate in the care of this patient History of Present Illness Attending Physician: Beni Goel MD History of Present Illness 61-year-old male with hx ETOH cirrhosis c/b esophageal varcies, anxiety, HTN, Diabetic nephropathy here with rectal bleeding. Had colonoscopy with polypectomy 09/03 in [place] and was doing well post procedure but noticed hematochezia few days ago bright red blood per rectum. Now having maroon stools in the hospital, no hematemesis today. Has also been having nonbloody diarrhea for the last few months and a 35 lbs wt loss, trouble keeping food down. currently on ppi and octreotide drips and abx. platelets are low and he is being transfused them today. hgb noted to be 12.6 this morning, stable from before. CBC and CMP reviewed, VSS. Allergies Allergy/AdvReac Type Severity Reaction Status Date / Time INHALED ANTIHISTAMINES Allergy Severe THROAT Uncoded 09/17/22 15:53 SWELLS SHUT Home Medications Medication Instructions Recorded Confirmed Type allopurinol 100 mg tablet 100 mg PO DAILY 09/17/22 09/17/22 History ascorbic acid (vitamin C) 500 mg 500 mg PO DAILY 09/17/22 09/17/22 History tablet (Vitamin C) buspirone 5 mg tablet 5 mg PO BID 09/17/22 09/17/22 History carvedilol 3.125 mg tablet 3.125 mg PO BIDM 09/17/22 09/17/22 History cyanocobalamin (vitamin B-12) 500 mcg sublingual DAILY 09/17/22 09/17/22 History 1,000 mcg sublingual tablet diazepam 10 mg tablet 10 mg PO BID PRN Anxiety 09/17/22 09/17/22 History diphenoxylate-atropine 2.5 1 tab PO QID PRN Diarrhea 09/17/22 09/17/22 History mg-0.025 mg tablet doxycycline hyclate 100 mg capsule 100 mg PO DIRECTED 09/17/22 09/17/22 History duloxetine 30 mg capsule,delayed 30 mg PO BID 09/17/22 09/17/22 History release furosemide 20 mg tablet (Lasix) 20 mg PO DAILY 09/17/22 09/17/22 History lurasidone 60 mg tablet (Latuda) 60 mg PO DAILY 09/17/22 09/17/22 History metformin 1,000 mg tablet 1,000 mg PO BIDM 09/17/22 09/17/22 History metoprolol succinate 100 mg 100 mg PO DAILY 09/17/22 09/17/22 History tablet,extended release 24 hr pantoprazole 40 mg tablet,delayed 40 mg PO DAILY 09/17/22 09/17/22 History release pregabalin 300 mg capsule 300 mg PO BID 09/17/22 09/17/22 History spironolactone 25 mg tablet 25 mg PO DAILY 09/17/22 09/17/22 History tamsulosin 0.4 mg capsule 0.4 mg PO HS 09/17/22 09/17/22 History topiramate 100 mg tablet 100 mg PO BID 09/17/22 09/17/22 History Patient History Medical History Cirrhosis Surgical History H/O rectal polypectomy History of colonoscopy Social History Smoking Status: Current every day smoker Cigarettes Per Day: 1; Second Hand Exposure: No; Do You Dip or Chew Tobacco: No; Tobacco Cessation Education Requested by Patient: No Hx Alcohol Use: No Hx Substance Use: No Preferred Language: Djiboutian Communication Ability: Effective Beliefs That Will Affect Care: None Current Living Situation: Significant Other Other Information That Helps Us Care for You: No Feels Safe at Home: Yes and No Is there a partner from a previous relationship who is making you feel unsafe now?: No Any Concerns about Your Family Situation: No Would You Like to Speak to Someone About Your Situation: No Safety Concerns: Feels Safe At This Time Assistive Devices: Cane, Glasses, Hearing Aid - Left and Hearing Aid - Right Assistive Devices Comment: glasses and hearing aid not here with patient Review of Systems Constitutional: no fever, no chills and no weight loss Eyes: as per Subjective / HPI Ear, Nose, Mouth, Throat: as per Subjective / HPI Respiratory: no dyspnea and no dyspnea on exertion Cardiovascular: no chest pain and no palpitations Gastrointestinal: as per Subjective / HPI Musculoskeletal: no joint pain and no swelling Integumentary: no rash and no lesions Neurologic: no numbness and no paresthesia Psychiatric: no depression and no anxiety Endocrine: no fatigue Hematologic / Lymphatic: no easy bleeding and no easy bruising Physical Exam Constitutional: WD/WN, vitals as above Eyes: EOM intact bilaterally Neck: normal visual inspection Respiratory: normal respiratory effort, lungs clear to auscultation Cardiovascular: RRR, no murmur, no edema Gastrointestinal (Abdomen): Inspection/Auscultation: abdomen normal to inspection; abdomen not distended Percussion/Palpation: abdomen soft; abdomen nontender and no hepatosplenomegaly Musculoskeletal: Extremities: no cyanosis Gait: normal gait Skin: no rashes, warm and dry Neurologic: moves all extremities Psychiatric: A+Ox3, euthymic affect Results & Data ([facility]) Vital Signs (Past 12 Hours) Vital Signs Temp Pulse Pulse Resp BP BP Pulse Ox 09/18/22 11:07 36.6 C 76 16 110/84 100 09/18/22 10:38 36.4 C L 86 18 104/74 100 09/18/22 06:52 36.8 C 106 H 18 102/74 99 09/18/22 03:57 36.8 C 106 H 17 93/73 L 100 O2 Del Method 09/18/22 11:07 09/18/22 10:38 Room Air 09/18/22 06:52 Room Air 09/18/22 03:57 Room Air PG Care Time/CCT Total # of Minutes Spent Total Time Spent with Patient: Total time spent is greater than 50% in coordination of care (as documented) at patient's floor/unit and/or counseling patient: Coding Level of Care Code 50695 Initial Inpt Care Lvl 3 Diagnoses End stage liver disease K72.10 LGI bleed K92.2
--- NOTE | 2022-09-18 11:35 | Hospitalist Progress Note ---
Date of Service September 18, 2022 Assessment & Plan (1) LGI bleed: Plan: - BRBPR since last evening. Colonoscopy with polypectomy on 09/03/2022 in [place]. Hgb was 13.9 on admission. - Continue PPI drip & ceftriaxone - Resumed octreotide on 09/18 for continued BPBPR. - GI consulted -> Plan for NPO today, clears tomorrow with colon prep. Plan for upper/lower scope on Tuesday if he remains stable. - Trend H&H. (2) End stage liver disease: Plan: Patient receives care from [facility] in [place], in process of obtaining records. - Colonoscopy with polypectomy on 09/03/2022 in [place]. - CTAP: Question wall thickening of the left colon and rectum with surrounding infiltration. Correlate clinically for evidence of a non-specific proctocolitis. - Meld score: 27 on 09/17, 19.6% estimated 3-month mortality. - Obtaining outpt records for further planning. (3) CKD (chronic kidney disease): Plan: Cr 3.36 on admission, unsure if new or chronic. Obtaining records. - IVF repletion. - Cr today is 3.0; presume this is actually not far from baseline. Will monitor. (4) Leukocytosis: Plan: WBC 16, unknown etiology, reactive vs infection, covered in ED prophylactically in Rocephin. CT a/p on 09/17 with possible protocolitis. Reviewed CT myself and do not see any significant ascites that would be able to be sampled. - Continue ceftriaxone - UA pending - Will get abd u/s to check for ascites (5) Anemia: Plan: - Hgb 13.9, unknown baseline, trend as above for LGIB. Admission and Anticipated Discharge Date Admission Date: September 17, 2022 Subjective Still with bleeding. Feels very weak. Physical Exam Constitutional: WD/WN, vitals as above Eyes: EOM intact bilaterally; no conjunctival abnormality ENMT: external ear and nose normal, oropharynx normal Neck: trachea midline, no thyromegaly normal visual inspection Respiratory: normal respiratory effort, lungs clear to auscultation no respiratory distress Cardiovascular: RRR, no murmur, no edema Gastrointestinal (Abdomen): Inspection/Auscultation: abdomen normal to inspection; abdomen not distended Musculoskeletal: no cyanosis or clubbing, extremities motor strength 5/5 Skin: no rashes, warm and dry Neurologic: moves all extremities and awake Psychiatric: Orientation: alert, oriented to person and cooperative Results & Data Results & Data ([facility]) Vital Signs (Past 12 Hours) Vital Signs Temp Pulse Pulse Resp BP BP Pulse Ox 09/18/22 11:07 36.6 C 76 16 110/84 100 09/18/22 10:38 36.4 C L 86 18 104/74 100 09/18/22 06:52 36.8 C 106 H 18 102/74 99 09/18/22 03:57 36.8 C 106 H 17 93/73 L 100 O2 Del Method 09/18/22 11:07 09/18/22 10:38 Room Air 09/18/22 06:52 Room Air 09/18/22 03:57 Room Air PG Care Time/CCT Total # of Minutes Spent Total Time Spent with Patient: Total time spent is greater than 50% in coordination of care (as documented) at patient's floor/unit and/or counseling patient: Coding Level of Care Code 73982 Subseq Hosp Care Lvl 3 Diagnoses LGI bleed K92.2 End stage liver disease K72.10 CKD (chronic kidney disease) N18.9 Chronic kidney disease stage: unspecified stage Leukocytosis D72.829 Leukocytosis type: unspecified Anemia D64.9 Anemia type: unspecified type (1) CKD (chronic kidney disease) Chronic kidney disease stage: unspecified stage Qualified Code(s): N18.9 - Chronic kidney disease, unspecified (2) Leukocytosis Leukocytosis type: unspecified Qualified Code(s): D72.829 - Elevated white blood cell count, unspecified (3) Anemia Anemia type: unspecified type Qualified Code(s): D64.9 - Anemia, unspecified
[2022-09-18] MEDS: INSULIN ASPART PER UNIT SC SCH ×2 (12:17→18:39)
--- NOTE | 2022-09-18 14:37 | Pharmacy Report ---
Pharmacy Glycemic Short Note 2 - Date of Service September 18, 2022 - Glycemic Short BSG Results (Last 24 hours): 09/17/22 09/17/22 09/17/22 16:47 17:30 20:05 Glucose 130 H POC Glucose 117 H 116 H 09/17/22 09/18/22 09/18/22 23:45 06:12 07:41 Glucose 117 H POC Glucose 109 H 129 H 09/18/22 11:31 Glucose POC Glucose 137 H OUTPATIENT ANTIDIABETIC REGIMEN: * A1c = 5.6% * Metformin 1000 mg PO BID ASSESSMENT: * Darius is a 61-year-old male with a past medical history of end-stage liver cirrhosis, hypertension, diabetes with neuropathy, and CKD who presented with rectal bleeding. He is currently on pantoprazole and octreotide infusions. He only takes metformin at home, which has been held. * Patient was started on SQ novolog for correctional needs. Will continue to hold basal insulin based on A1c of 5.6% and NPO status. PLAN FOR INPATIENT GLYCEMIC CONTROL: * Hold outpatient oral diabetes medications * Basal insulin * none * Bolus insulin * NovoLog per scale ACHS or Q6hrs while NPO * Goal Range: Low 110 mg/dL - High 140 mg/dL * Correction Factor: 25 mg/dL/unit * Nutritional / Prandial insulin per carb ratio of 1 unit per 12 grams CHO consumed
[2022-09-18] MEDS: cefTRIAXone SODIUM 1,000 MG in DEXTROSE 5% 50 ML IV SCH (16:10)
--- NOTE | 2022-09-18 16:29 | Ultrasound Report ---
US abdomen limited CLINICAL HISTORY: Evaluate ascites. COMPARISON STUDY: Abdomen and pelvis CT 09/17/2022. FINDINGS: Cirrhotic liver with a small to moderate amount of perihepatic ascites. The spleen remains enlarged measuring 17 cm in length. Trace ascites seen throughout the remaining abdomen. IMPRESSION: 1. No change in the small amount of ascites. 2. Cirrhotic liver and splenomegaly again noted ACT 112: Negative or not required by law. Electronically signed by: Alistair Soriano M.D. 09/18/2022 4:27 PM
[2022-09-18] MEDS: TAMSULOSIN HCL 0.4 MG CAP PO SCH (19:55)
[2022-09-18 21:40] LABS: Hematocrit (blood only) 30.6 % (40.1-51.0); Mean Corpuscular Hemoglobin 29.5 pg (25.0-34.0); Mean Corpuscular Hgb Conc 35.9 g/dL (32.0-36.0); RDW Standard Deviation 49.7 fL (36.4-46.3); Red Blood Count 3.73 M/uL (4.63-6.08); White Blood Count 8.37 K/ul (4.8-10.8)
[2022-09-18 21:53] LABS: Mean Platelet Volume 12.2 fL (9.4-12.4); Platelet Count 32 K/uL (130-400)
[2022-09-19] MEDS: INSULIN ASPART PER UNIT SC SCH ×6 (01:03→21:20)
[2022-09-19] MEDS: PANTOprazole 40 MG in DEXTROSE 5% 100 ML IV SCH ×5 (01:06→20:30)
[2022-09-19] MEDS: OCTREOTIDE ACETATE 500 MCG in DEXTROSE 5% 100 ML IV SCH ×2 (06:17→16:26)
[2022-09-19 08:01] LABS: Albumin Globulin Ratio 0.9 (0.9-2); Albumin Level 2.8 gm/dl (3.4-5.0); BUN Creatinine Ratio 23.1 (10-20); Bilirubin,Total 1.3 mg/dl (0.2-1.0); Calcium 7.7 mg/dl (8.5-10.1); Creatinine Clr Calc Pharmacy 28.6 ml/min; Est GFR (African American) 29.4 ml/min; Est GFR (Non-African American) 25.4 ml/min; Magnesium 1.3 mg/dl (1.7-2.4); Potassium 2.9 mmol/L (3.5-5.1); Total Protein 5.8 gm/dl (6.0-8.3)
[2022-09-19 08:21] LABS: Hematocrit (blood only) 32.4 % (40.1-51.0); Hemoglobin 11.8 g/dl (14.0-18.0); Mean Corpuscular Hemoglobin 29.9 pg (25.0-34.0); Mean Corpuscular Hgb Conc 36.4 g/dL (32.0-36.0); Platelet Count 33 K/uL (130-400); Platelet Estimate Decreased (Normal); RDW Coefficient of Variation 17.2 % (11.5-14.5); RDW Standard Deviation 50.5 fL (36.4-46.3); Red Blood Count 3.95 M/uL (4.63-6.08); White Blood Count 7.15 K/ul (4.8-10.8)
[2022-09-19] MEDS: DULoxetine HCL 30 MG CAP PO SCH ×2 (08:23→22:41)
[2022-09-19] MEDS: busPIRone 5 MG TAB PO SCH ×2 (08:24→22:41)
[2022-09-19] MEDS: TOPIRAMATE 100 MG TAB PO SCH ×2 (08:24→22:43)
[2022-09-19] MEDS: ASCORBIC ACID 500 MG TAB PO SCH (08:24)
[2022-09-19] MEDS: allopurinoL 100 MG TAB PO SCH (08:24)
[2022-09-19] MEDS: METOPROLOL SUCC 50MG EXT REL TAB PO SCH (08:24)
[2022-09-19] MEDS: LURASIDONE HCL 40 MG TAB PO SCH (08:25)
[2022-09-19] MEDS: CYANOCOBALAMIN (B-12) 500 MCG TABLET PO SCH (08:26)
[2022-09-19] MEDS: PREGABALIN 150 MG CAP PO SCH ×2 (08:29→22:53)
[2022-09-19 08:41] LABS: INR 1.6 (0.9-1.1); Partial Thromboplastin Ratio 1.7; Prothrombin Time 16.5 Seconds (9.0-12.0)
[2022-09-19 08:54] LABS: Partial Thromboplastin Time 47.4 Seconds (21.0-31.0)
[2022-09-19] MEDS: MAGNESIUM SULFATE / D5W 1 GM/100 ML BAG IV SCH ×4 (09:36→14:38)
[2022-09-19] MEDS: POTASSIUM CHLORIDE 20 MEQ/15 ML UDC PO SCH ×2 (09:36→22:40)
--- NOTE | 2022-09-19 13:09 | Hospitalist Progress Note ---
Date of Service September 19, 2022 Assessment & Plan (1) LGI bleed: Plan: - BRBPR since last evening. Colonoscopy with polypectomy on 09/03/2022 in [place]. Hgb was 13.9 on admission. - Continue PPI drip & ceftriaxone - Resumed octreotide on 09/18 for continued BPBPR. - GI consulted -> Plan for clears today with colon prep. Plan for upper/lower scope on Tuesday if he remains stable. - Trend H&H. -> Stable today. - Transfused platelets on 09/18 & 09/19 for plts < 50k with bleeding. (2) End stage liver disease: Plan: Patient receives care from [facility] in [place], in process of obtaining records. - Colonoscopy with polypectomy on 09/03/2022 in [place]. - CTAP: Question wall thickening of the left colon and rectum with surrounding infiltration. Correlate clinically for evidence of a non-specific proctocolitis. - Meld score: 27 on 09/17, 19.6% estimated 3-month mortality. - Obtaining outpt records for further planning. (3) CKD (chronic kidney disease): Plan: Cr 3.36 on admission, unsure if new or chronic. Obtaining records. - IVF repletion. - Cr today is 2.6; presume this is actually not far from baseline. Will monitor. (4) Leukocytosis: Plan: WBC was 16 on admission. Unknown etiology, reactive vs infection, covered in ED prophylactically in [place]. CT a/p on 09/17 with possible protocolitis. - Abd u/s on 09/18 with perihepatic ascites. - UA pending - Continue ceftriaxone -> Feel SBP fairly unlikely given lack of abdominal pain, resolution of leukocytosis. -> Continue abx x 7 days for SBP ppx. (5) Anemia: Plan: Hgb was 13.9, unknown baseline, trend as above for LGIB. DVT ppx: SCDs - Holding heparin for bleeding and thrombocytopenia Admission and Anticipated Discharge Date Admission Date: September 17, 2022 Subjective Still fairly weak today. Reports one additional BM overnight with blood, but then had a BM this morning without any blood. Physical Exam Constitutional: WD/WN, vitals as above Eyes: EOM intact bilaterally; no conjunctival abnormality ENMT: external ear and nose normal, oropharynx normal Neck: trachea midline, no thyromegaly normal visual inspection Respiratory: normal respiratory effort, lungs clear to auscultation no respiratory distress Cardiovascular: RRR, no murmur, no edema Gastrointestinal (Abdomen): Inspection/Auscultation: abdomen normal to inspection; abdomen not distended Musculoskeletal: no cyanosis or clubbing, extremities motor strength 5/5 Skin: no rashes, warm and dry Neurologic: moves all extremities and awake Psychiatric: Orientation: alert, oriented to person and cooperative Results & Data Results & Data ([facility]) Vital Signs (Past 12 Hours) Vital Signs Temp Pulse Pulse Resp BP BP Pulse Ox 09/19/22 11:55 36.4 C L 63 14 103/71 99 09/19/22 11:44 36.4 C L 63 14 103/71 09/19/22 11:24 36.4 C L 67 17 95/68 L 93 09/19/22 10:34 36.5 C 67 14 96/68 L 99 09/19/22 10:12 36.5 C 67 14 98/71 L 100 09/19/22 07:42 61 09/19/22 07:18 36.5 C 63 16 128/78 100 09/19/22 03:51 36.5 C 64 17 119/77 100 O2 Del Method 09/19/22 11:55 09/19/22 11:44 09/19/22 11:24 Room Air 09/19/22 10:34 09/19/22 10:12 09/19/22 07:42 09/19/22 07:18 Room Air 09/19/22 03:51 Room Air PG Care Time/CCT Total # of Minutes Spent Total Time Spent with Patient: Total time spent is greater than 50% in coordination of care (as documented) at patient's floor/unit and/or counseling patient: Coding Level of Care Code 24733 Subseq Hosp Care Lvl 3 Diagnoses LGI bleed K92.2 End stage liver disease K72.10 CKD (chronic kidney disease) N18.9 Chronic kidney disease stage: unspecified stage Leukocytosis D72.829 Leukocytosis type: unspecified Anemia D64.9 Anemia type: unspecified type (1) CKD (chronic kidney disease) Chronic kidney disease stage: unspecified stage Qualified Code(s): N18.9 - Chronic kidney disease, unspecified (2) Leukocytosis Leukocytosis type: unspecified Qualified Code(s): D72.829 - Elevated white blood cell count, unspecified (3) Anemia Anemia type: unspecified type Qualified Code(s): D64.9 - Anemia, unspecified
[2022-09-19] MEDS: cefTRIAXone SODIUM 1,000 MG in DEXTROSE 5% 50 ML IV SCH (14:39)
[2022-09-19] MEDS: LAVAGE SOLUTION 4000ML PO SCH (18:39)
[2022-09-19 19:23] LABS: Hematocrit (blood only) 31.4 % (40.1-51.0); Hemoglobin 11.3 g/dl (14.0-18.0); Mean Corpuscular Hemoglobin 29.9 pg (25.0-34.0); Mean Corpuscular Volume 83.1 fL (80.0-100.0); Mean Platelet Volume 11.3 fL (9.4-12.4); Platelet Count 52 K/uL (130-400); Platelet Estimate Decreased (Normal); RDW Coefficient of Variation 17.8 % (11.5-14.5); RDW Standard Deviation 53.2 fL (36.4-46.3); Red Blood Count 3.78 M/uL (4.63-6.08); White Blood Count 8.97 K/ul (4.8-10.8)
[2022-09-19] MEDS: TAMSULOSIN HCL 0.4 MG CAP PO SCH (22:39)
[2022-09-20] MEDS: PANTOprazole 40 MG in DEXTROSE 5% 100 ML IV SCH ×2 (01:40→06:33)
[2022-09-20] MEDS: OCTREOTIDE ACETATE 500 MCG in DEXTROSE 5% 100 ML IV SCH (01:41)
[2022-09-20] MEDS: LAVAGE SOLUTION 4000ML PO SCH (06:04)
--- NOTE | 2022-09-20 07:35 | Hospitalist Progress Note ---
Date of Service September 20, 2022 Assessment & Plan (1) LGI bleed: Plan: 61-year-old male past medical history significant for end-stage liver disease with cirrhosis, anemia of chronic disease admitted for lower GI bleed and elevated creatinine (suspected REGINALD on CKD). LGI Bleed: - BRBPR reported on 09/17. Colonoscopy with polypectomy on 09/03/2022 in [place]. Hgb was 13.9 on admission, decreased to 11.3 on 09/20. - GI consulted and appreciate recommendations: - EGD performed 09/20 with small non-bleeding esophageal varices, no stomach varices, and mild portal gastropathy. - Colonoscopy unable to be performed due to inadequate prep. Can be done outpatient if patient's Hgb stabilizes given no further bleeding since admission. - Continue ceftriaxone x7 days for SBP prophylaxis, to complete on 09/24. - Octreotide given on admission, discontinued post-EGD. - Protonix gtt discontinued in favor of daily PO Protonix. - Transfused platelets on 09/18 & 09/19 for plts < 50k with bleeding; plts 43 today without reports/evidence of bleeding today. - Continue to trend H&H. (2) Acute blood loss anemia: Plan: - Hgb was 13.9 on admission with unknown baseline. Hgb 11.3 on 09/20. - DVT ppx: SCDs; holding heparin for bleeding and thrombocytopenia. - Continue to trend given LGIB. - Transfuse if Hgb <7. (3) End stage liver disease: Plan: - Patient receives care from [facility] in [place]. - CTAP: Questionable wall thickening of the left colon and rectum with surrounding infiltration. Correlate clinically for evidence of a non-specific proctocolitis. - MELD score: 27 on 09/17, 19.6% estimated 3-month mortality. - Patient will need close outpatient GI follow up. (4) CKD (chronic kidney disease): Plan: - Cr 3.36 on admission, unsure if new or chronic. Obtaining records. - Creatinine on 09/20 of 2.26, continued decrease with IVF. - Continue to monitor with daily BMP. (5) Leukocytosis: Plan: - WBC was 16 on admission. Covered in ED prophylactically in Roceph[place]. - CTAP on 09/17 with possible protocolitis; possible this is source. - Abd u/s on 09/18 with perihepatic ascites. - Continue ceftriaxone -> Feel SBP fairly unlikely given lack of abdominal pain, resolution of leukocytosis. - Continue x7 days for SBP ppx, to complete on 09/24. Plan - full code - clear liquid diet and advance as tolerated - SCDs for DVT ppx; no chemoprophylaxis at this time given low plts - Med/Tele Admission and Anticipated Discharge Date Admission Date: September 17, 2022 Subjective Patient had difficulty overnight with drinking all of the colon prep. He did not report any bloody BMs overnight or bleeding from other sites. Reports fatigue, but otherwise no complaints. Had difficulty with drinking all of the prep last night. Review of Systems Constitutional: no fever and no chills Eyes: no blind spots and no diplopia Ear, Nose, Mouth, Throat: no nasal congestion and no epistaxis Respiratory: no cough and no dyspnea Cardiovascular: no chest pain and no palpitations Gastrointestinal: no abdominal pain, no nausea, no vomiting and no blood in stools Genitourinary: no dysuria or no hematuria Musculoskeletal: no back pain and no neck pain Integumentary: no rash and no skin ulcer Neurologic: no localized weakness and no loss of sensation Psychiatric: no behavioral changes and no confusion Endocrine: + fatigue Hematologic / Lymphatic: + easy bleeding and + easy bruising Physical Exam Constitutional: WD/WN, vitals as above Respiratory: normal respiratory effort, lungs clear to auscultation no respiratory distress Cardiovascular: RRR, no murmur, no edema Gastrointestinal (Abdomen): Inspection/Auscultation: abdomen normal to inspection; abdomen not distended Musculoskeletal: no cyanosis or clubbing, extremities motor strength 5/5 Skin: no rashes, warm and dry Neurologic: moves all extremities and awake Psychiatric: Orientation: alert, oriented to person and cooperative Results & Data Results & Data ([facility]) Vital Signs (Past 12 Hours) Vital Signs Temp Pulse Pulse Resp BP BP Pulse Ox 09/20/22 07:33 60 09/20/22 04:00 36.5 C 62 18 108/69 94 09/20/22 02:33 57 L 09/20/22 00:24 36.5 C 62 18 106/72 100 09/19/22 20:24 34.7 C L 59 L 17 96/64 L 100 O2 Del Method 09/20/22 07:33 09/20/22 04:00 Room Air 09/20/22 02:33 09/20/22 00:24 Room Air 09/19/22 20:24 PG Care Time/CCT Total # of Minutes Spent Total Time Spent with Patient: Total time spent is greater than 50% in coordination of care (as documented) at patient's floor/unit and/or counseling patient: Coding Level of Care Code 68842 Subseq Hosp Care Lvl 3 Diagnoses LGI bleed K92.2 Acute blood loss anemia D62 End stage liver disease K72.10 CKD (chronic kidney disease) N18.9 Chronic kidney disease stage: unspecified stage Leukocytosis D72.829 Leukocytosis type: unspecified (1) Leukocytosis Leukocytosis type: unspecified Qualified Code(s): D72.829 - Elevated white blood cell count, unspecified (2) CKD (chronic kidney disease) Chronic kidney disease stage: unspecified stage Qualified Code(s): N18.9 - Chronic kidney disease, unspecified
[2022-09-20 08:11] LABS: Hemoglobin 11.3 g/dl (14.0-18.0); Mean Corpuscular Hemoglobin 29.4 pg (25.0-34.0); Mean Corpuscular Hgb Conc 36.5 g/dL (32.0-36.0); Mean Corpuscular Volume 80.5 fL (80.0-100.0); RDW Coefficient of Variation 17.3 % (11.5-14.5); RDW Standard Deviation 49.8 fL (36.4-46.3); Red Blood Count 3.85 M/uL (4.63-6.08); White Blood Count 9.01 K/ul (4.8-10.8)
[2022-09-20 08:29] LABS: Albumin Globulin Ratio 0.9 (0.9-2); Albumin Level 2.6 gm/dl (3.4-5.0); BUN Creatinine Ratio 21.7 (10-20); Bilirubin,Total 1.1 mg/dl (0.2-1.0); Calcium 7.8 mg/dl (8.5-10.1); Creatinine Clr Calc Pharmacy 33.8 ml/min; Est GFR (African American) 35.5 ml/min; Est GFR (Non-African American) 30.6 ml/min; Potassium 3.4 mmol/L (3.5-5.1); Total Protein 5.6 gm/dl (6.0-8.3)
[2022-09-20 08:37] LABS: Mean Platelet Volume 11.5 fL (9.4-12.4); Platelet Count 43 K/uL (130-400)
[2022-09-20] MEDS: INSULIN ASPART PER UNIT SC SCH ×4 (08:42→20:41)
--- NOTE | 2022-09-20 08:49 | Anesthesiology Consultation ---
Date of Service September 20, 2022 Assessment & Plan (1) Encounter for pre-operative examination: History Surgery Operation Date: 09/20/22 16:45 Proposed Procedures p Colonoscopy EGD Dr. Miquel Lafleur MD Height/Weight Height: 6 ft Weight: 68 kg Allergies Allergy/AdvReac Type Severity Reaction Status Date / Time INHALED ANTIHISTAMINES Allergy Severe THROAT Uncoded 09/20/22 08:35 SWELLS SHUT Medications Home Medications Medication Instructions Recorded Confirmed Last Taken allopurinol 100 mg tablet 100 mg PO DAILY 09/17/22 09/17/22 09/16/22 ascorbic acid (vitamin C) 500 mg 500 mg PO DAILY 09/17/22 09/17/22 09/16/22 tablet (Vitamin C) buspirone 5 mg tablet 5 mg PO BID 09/17/22 09/17/22 09/16/22 carvedilol 3.125 mg tablet 3.125 mg PO BIDM 09/17/22 09/17/22 09/16/22 cyanocobalamin (vitamin B-12) 500 mcg sublingual DAILY 09/17/22 09/17/22 09/16/22 1,000 mcg sublingual tablet diazepam 10 mg tablet 10 mg PO BID PRN Anxiety 09/17/22 09/17/22 Unknown diphenoxylate-atropine 2.5 1 tab PO QID PRN Diarrhea 09/17/22 09/17/22 Unknown mg-0.025 mg tablet doxycycline hyclate 100 mg capsule 100 mg PO DIRECTED 09/17/22 09/17/22 09/16/22 duloxetine 30 mg capsule,delayed 30 mg PO BID 09/17/22 09/17/22 09/16/22 release furosemide 20 mg tablet (Lasix) 20 mg PO DAILY 09/17/22 09/17/22 09/16/22 lurasidone 60 mg tablet (Latuda) 60 mg PO DAILY 09/17/22 09/17/22 09/16/22 metformin 1,000 mg tablet 1,000 mg PO BIDM 09/17/22 09/17/22 09/16/22 metoprolol succinate 100 mg 100 mg PO DAILY 09/17/22 09/17/22 09/16/22 tablet,extended release 24 hr pantoprazole 40 mg tablet,delayed 40 mg PO DAILY 09/17/22 09/17/2209/16/22 release pregabalin 300 mg capsule 300 mg PO BID 09/17/22 09/17/22 09/16/22 spironolactone 25 mg tablet 25 mg PO DAILY 09/17/22 09/17/22 09/16/22 tamsulosin 0.4 mg capsule 0.4 mg PO HS 09/17/22 09/17/22 09/16/22 topiramate 100 mg tablet 100 mg PO BID 09/17/22 09/17/22 09/16/22 Active Medications Generic Name Dose Route Start Last Admin Trade Name Nikky PRN Reason Stop Dose Admin Allopurinol 100 mg 09/18/22 09:00 09/19/22 08:24 Allopurinol 100 Mg Tab PO 10/18/22 08:59 100 mg DAILY JASON Administration Ascorbic Acid 500 mg 09/18/22 09:00 09/19/22 08:24 Ascorbic Acid 500 Mg Tab PO 10/18/22 08:59 500 mg DAILY JASON Administration Buspirone HCl 5 mg 09/17/22 21:00 09/19/22 22:41 Buspirone 5 Mg Tab PO 10/17/22 20:59 5 mg BID JASON Administration Cyanocobalamin 500 mcg 09/18/22 09:00 09/19/22 08:26 Cyanocobalamin (B-12) 500 Mcg Tablet PO 10/18/22 08:59 500 mcg DAILY JASON Administration Duloxetine HCl 30 mg 09/17/22 21:00 09/19/22 22:41 Duloxetine Hcl 30 Mg Cap PO 10/17/22 20:59 30 mg BID JASON Administration Pantoprazole Sodium 40 mg/ 100 mls @ 20 mls/hr 09/17/22 13:45 09/20/22 06:33 Dextrose IV 10/17/22 13:44 8 mg/hr Q5H JASON 20 mls/hr Administration 8 MG/HR Ceftriaxone Sodium 1,000 mg/ 60 mls @ 100 mls/hr 09/18/22 15:00 09/19/22 15:36 Dextrose IV 09/20/22 14:59 Infused Q24H JASON Infusion Protocol Octreotide Acetate 500 mcg/ 100.5 mls @ 10.05 mls/hr 09/18/22 10:45 09/20/22 01:41 Dextrose IV 10/18/22 10:44 50.25 mcg/hr .Q10H JASON 10.1 mls/hr Administration 50 MCG/HR Insulin Aspart 0 units 09/19/22 16:30 09/20/22 08:42 Insulin Aspart Per Unit SC 10/19/22 16:29 Not Given ACHS JASON Lurasidone HCl 40 mg 09/18/22 09:00 09/19/22 08:25 Lurasidone Hcl 40 Mg Tab PO 10/18/22 08:59 40 mg DAILY JASON Administration Protocol Metoprolol Succinate 100 mg 09/18/22 09:00 09/19/22 08:24 Metoprolol Succ 50mg Ext Rel Tab PO 10/18/22 08:59 100 mg DAILY JASON Administration Pregabalin 300 mg 09/17/22 21:00 09/19/22 22:53 Pregabalin 150 Mg Cap PO 10/17/22 20:59 300 mg BID JASON Administration Tamsulosin HCl 0.4 mg 09/17/22 21:00 09/19/22 22:39 Tamsulosin Hcl 0.4 Mg Cap PO 10/17/22 20:59 0.4 mg HS JASON Administration Topiramate 100 mg 09/17/22 21:00 09/19/22 22:43 Topiramate 100 Mg Tab PO 10/17/22 20:59 100 mg BID JASON Administration Past Medical History Medical History (Updated 09/20/22 @ 08:49 by Ayanna Varela MD) Anemia Cirrhosis CKD (chronic kidney disease) End stage liver disease Leukocytosis LGI bleed Past Surgical History Surgical History H/O rectal polypectomy History of colonoscopy Social History Smoking Status: Current every day smoker tobacco type: cigarettes Smoking cigarettes per day: 1 Do You Dip or Chew Tobacco: No Hx Alcohol Use: No Hx Substance Use: No substance use type: marijuana Substance Use Type Other:: medical marijuana Last Used Substance: Unknown Last Used Substance Other:: pt took a break and hasn't had Physical Exam Vital Signs Last Vital Signs Temp 36.4 C L 09/20/22 07:40 Pulse 67 09/20/22 07:40 Resp 18 09/20/22 07:40 BP 95/67 L 09/20/22 07:40 Pulse Ox 99 09/20/22 07:40 O2 Del Method 09/20/22 07:40 Testing Laboratory Results 09/20/22 05:51 09/20/22 05:51 PT 16.5 Seconds (9.0-12.0) H 09/19/22 08:03 INR 1.6 (0.9-1.1) H 09/19/22 08:03 APTT 47.4 Seconds (21.0-31.0) H* 09/19/22 08:03 Hemoglobin A1c 5.6 % (4.5-5.6) 09/18/22 06:12 Blood Type O Positive 09/17/22 12:55 Antibody Screen NEGATIVE 09/17/22 12:55 09/17/22 15:16 Aerobic Blood Culture - Preliminary Blood No growth in Aerobic bottle after 48 hours. Anaerobic Blood Culture - Preliminary No growth in Anaerobic bottle after 48 hours. 09/17/22 15:11 Aerobic Blood Culture - Preliminary Blood No growth in Aerobic bottle after 48 hours. Anaerobic Blood Culture - Preliminary No growth in Anaerobic bottle after 48 hours. 09/20/22 05:37 POC Glucose 113 H
--- NOTE | 2022-09-20 08:57 | History & Physical Bridge Note ---
Date of Service September 20, 2022 History & Physical Bridge Note I have examined the patient, reviewed the History & Physical and in the interval since the performance of the History & Physical I have noted the following changes of clinical significance: no changes noted Proceed with EGD. risks/benefits and procedure discussed with patient, who agrees to proceed
[2022-09-20] MEDS ORDERED: LIDOCAINE 2% MPF LOCAL 5 ML VIAL INFIL ONE (09:33)
[2022-09-20] MEDS ORDERED: PROPOFOL IV EMULSION 10 MG/ML 20 ML VIAL IV ONE (09:33)
--- NOTE | 2022-09-20 09:37 | GI REPORT ---
Patient Name: Darius Carter Procedure Date: 09/20/2022 9:05 AM Date of : 1960 Admit Type: Inpatient Age: 61 Gender: Male Attending MD: Lino Lafleur MD Procedure: Upper GI endoscopy Providers: Lino Lafleur MD Referring MD: NADINE STRANGE Indications: Hematochezia Medicines: Monitored Anesthesia Care Complications: No immediate complications. Estimated blood loss: None. Estimated Blood Loss: Estimated blood loss: none. Procedure: Pre-Anesthesia Assessment: - Prior Anticoagulants: The patient has taken no previous anticoagulant or antiplatelet agents. - ASA Grade Assessment: II - A patient with mild systemic disease. After obtaining informed consent, the endoscope was passed under direct vision. Throughout the procedure, the patient's blood pressure, pulse, and oxygen saturations were monitored continuously. The Endoscope was introduced through the mouth, and advanced to the second part of duodenum. The upper GI endoscopy was accomplished without difficulty. The patient tolerated the procedure well. Findings: Small nonbleeding (< 5 mm) varices were found in the lower third of the esophagus. Mild portal hypertensive gastropathy was found in the stomach. no gastric varices were noted. The duodenal bulb and second portion of the duodenum were normal. Impression: - Small (< 5 mm) esophageal varices. - Portal hypertensive gastropathy. - Normal duodenal bulb and second portion of the duodenum. - No specimens collected. Recommendation: - Return patient to [facility] for ongoing care. - Advance diet as tolerated today. --will need outpatient colonoscopy to further evaluate --supportive care, can d/c protonix drip at this time --complete 7 days of abx for GI bleed in cirrhotic patient Lino Lafleur MD 09/20/2022 9:36:29 AM This report has been signed electronically. Note Initiated On: 09/20/2022 9:05 AM Number of Addenda: 0 I attest to the content of the Intraoperative Record and orders documented therein, exceptions below {[id number]}
[2022-09-20] MEDS: ASCORBIC ACID 500 MG TAB PO SCH (12:45)
[2022-09-20] MEDS: DULoxetine HCL 30 MG CAP PO SCH ×2 (12:45→20:40)
[2022-09-20] MEDS: CYANOCOBALAMIN (B-12) 500 MCG TABLET PO SCH ×2 (12:46→14:51)
[2022-09-20] MEDS: METOPROLOL SUCC 50MG EXT REL TAB PO SCH (12:46)
[2022-09-20] MEDS: busPIRone 5 MG TAB PO SCH ×2 (12:47→20:40)
[2022-09-20] MEDS: allopurinoL 100 MG TAB PO SCH (12:47)
[2022-09-20] MEDS: TOPIRAMATE 100 MG TAB PO SCH ×2 (12:47→20:41)
[2022-09-20] MEDS: LURASIDONE HCL 40 MG TAB PO SCH (12:48)
[2022-09-20] MEDS: PREGABALIN 150 MG CAP PO SCH ×2 (12:50→20:44)
--- NOTE | 2022-09-20 13:08 | Anesthesiology Progress Note ---
Date of Service September 20, 2022 Anesthesia Post Procedure Vital Signs Vital Signs: Temp Pulse Pulse Pulse Resp BP BP 09/20/22 10:55 36.5 C 60 18 102/69 09/20/22 10:03 63 14 94/63 L 09/20/22 09:49 65 14 97/60 L 09/20/22 09:34 67 14 93/60 L 09/20/22 08:36 36.5 C 63 14 103/70 09/20/22 07:40 36.4 C L 67 18 95/67 L 09/20/22 07:33 60 09/20/22 04:00 36.5 C 62 18 108/69 09/20/22 02:33 57 L 09/20/22 00:24 36.5 C 62 18 106/72 09/19/22 20:24 34.7 C L 59 L 17 96/64 L 09/19/22 19:00 34.7 C L 59 L 17 96/64 L 09/19/22 16:07 59 L 09/19/22 15:48 36.8 C 55 L 18 112/77 Pulse Ox O2 Del Method 09/20/22 10:55 100 Room Air 09/20/22 10:03 100 Room Air 09/20/22 09:49 100 Room Air 09/20/22 09:34 100 Room Air 09/20/22 08:36 99 Room Air 09/20/22 07:40 99 Room Air 09/20/22 07:33 09/20/22 04:00 94 Room Air 09/20/22 02:33 09/20/22 00:24 100 Room Air 09/19/22 20:24 100 09/19/22 19:00 100 Room Air 09/19/22 16:07 09/19/22 15:48 94 Room Air Transfer of Care Handoff Completed per policy Notes Mental Status: alert / awake / arousable and participated in evaluation Patient Amnestic to Procedure: Yes Nausea / Vomiting: adequately controlled Pain: adequately controlled Airway Patency, RR, SpO2: stable & adequate BP & HR: stable & adequate Hydration State: stable & adequate Anesthetic Complications: no major complications apparent
--- NOTE | 2022-09-20 13:26 | Pharmacy Report ---
Pharmacy Glycemic Short Note 2 - Date of Service September 20, 2022 - Glycemic Short BSG Results (Last 24 hours): 09/19/22 09/19/22 09/20/22 16:24 20:25 05:37 Glucose POC Glucose 130 H 133 H 113 H 09/20/22 09/20/22 05:51 11:35 Glucose 98 POC Glucose 84 OUTPATIENT ANTIDIABETIC REGIMEN: * A1c = 5.6% * Metformin 1000 mg PO BID ASSESSMENT: 09/20/22 * Patient's BSGs yesterday were [phone] mg/dL. * Patient received 6 units of Novolog yesterday. * Fasting is 113 mg/dL. * No change currently as only one BSG above goal range. BASELINE * Darius is a 61-year-old male with a past medical history of end-stage liver cirrhosis, hypertension, diabetes with neuropathy, and CKD who presented with rectal bleeding. He is currently on pantoprazole and octreotide infusions. He only takes metformin at home, which has been held. * Patient was started on SQ novolog for correctional needs. Will continue to hold basal insulin based on A1c of 5.6% and NPO status. PLAN FOR INPATIENT GLYCEMIC CONTROL: * Hold outpatient oral diabetes medications * Basal insulin * none * Bolus insulin * NovoLog per scale ACHS or Q6hrs while NPO * Goal Range: Low 110 mg/dL - High 140 mg/dL * Correction Factor: 25 mg/dL/unit * Nutritional / Prandial insulin per carb ratio of 1 unit per 12 grams CHO consumed
[2022-09-20] MEDS: cefTRIAXone SODIUM 1,000 MG in DEXTROSE 5% 50 ML IV SCH (16:23)
[2022-09-20] MEDS: TAMSULOSIN HCL 0.4 MG CAP PO SCH (20:41)
[2022-09-21 07:55] LABS: Hematocrit (blood only) 31.2 % (40.1-51.0); Hemoglobin 11.4 g/dl (14.0-18.0); Mean Corpuscular Hemoglobin 29.4 pg (25.0-34.0); Mean Corpuscular Hgb Conc 36.5 g/dL (32.0-36.0); Mean Corpuscular Volume 80.4 fL (80.0-100.0); Platelet Count 42 K/uL (130-400); RDW Coefficient of Variation 17.3 % (11.5-14.5); RDW Standard Deviation 49.9 fL (36.4-46.3); Red Blood Count 3.88 M/uL (4.63-6.08); White Blood Count 8.41 K/ul (4.8-10.8)
[2022-09-21 08:14] LABS: BUN Creatinine Ratio 18.5 (10-20); Calcium 7.8 mg/dl (8.5-10.1); Creatinine Clr Calc Pharmacy 41.5 ml/min; Est GFR (African American) 39.9 ml/min; Est GFR (Non-African American) 34.4 ml/min; Potassium 3.4 mmol/L (3.5-5.1)
[2022-09-21] MEDS: DULoxetine HCL 30 MG CAP PO SCH ×2 (08:54→21:06)
[2022-09-21] MEDS: TOPIRAMATE 100 MG TAB PO SCH ×2 (08:54→21:06)
[2022-09-21] MEDS: ASCORBIC ACID 500 MG TAB PO SCH (08:54)
[2022-09-21] MEDS: CYANOCOBALAMIN (B-12) 500 MCG TABLET PO SCH (08:54)
[2022-09-21] MEDS: LURASIDONE HCL 40 MG TAB PO SCH (08:54)
[2022-09-21] MEDS: allopurinoL 100 MG TAB PO SCH (08:55)
[2022-09-21] MEDS: PANTOprazole 40 MG TAB PO SCH (08:55)
[2022-09-21] MEDS: busPIRone 5 MG TAB PO SCH ×2 (08:55→21:06)
[2022-09-21] MEDS: METOPROLOL SUCC 50MG EXT REL TAB PO SCH (08:56)
[2022-09-21] MEDS: PREGABALIN 150 MG CAP PO SCH ×2 (08:58→21:05)
[2022-09-21] MEDS: INSULIN ASPART PER UNIT SC SCH ×4 (09:11→20:53)
--- NOTE | 2022-09-21 14:22 | Hospitalist Progress Note ---
Date of Service September 21, 2022 Assessment & Plan (1) LGI bleed: Plan: 61-year-old male past medical history significant for end-stage liver disease with cirrhosis, anemia of chronic disease admitted for lower GI bleed and elevated creatinine (suspected REGINALD on CKD). LGI Bleed, diarrhea: - BRBPR reported on 09/17. Colonoscopy with polypectomy on 09/03/2022 in [place]. Hgb was 13.9 on admission, stable over last several days to ~11. - GI consulted and appreciate recommendations: - EGD performed 09/20 with small non-bleeding esophageal varices, no stomach varices, and mild portal gastropathy. - Colonoscopy unable to be performed due to inadequate prep. Can be done outpatient as patient's Hgb has stabilized. - Continue ceftriaxone x7 days for SBP prophylaxis, to complete on 09/24. - Octreotide given on admission, discontinued post-EGD. - Protonix gtt discontinued in favor of daily PO Protonix. - Transfused platelets on 09/18 & 09/19 for plts < 50k with bleeding; plts 42 today, stable without reports/evidence of bleeding today. - Continue to trend H&H. (2) Acute blood loss anemia: Plan: - Hgb was 13.9 on admission with unknown baseline. Hgb stable at ~11.5 for the last several days. - DVT ppx: SCDs; holding heparin for bleeding and thrombocytopenia. - Continue to trend H/H given LGIB and low plts. - Transfuse if Hgb <7. (3) End stage liver disease: Plan: - Patient receives care from [facility] in [place]. - CTAP: Questionable wall thickening of the left colon and rectum with surrounding infiltration. Correlate clinically for evidence of a non-specific proctocolitis. - MELD score: 27 on 09/17, 19.6% estimated 3-month mortality. - Patient will need close outpatient GI follow up. (4) CKD (chronic kidney disease): Plan: - Cr 3.36 on admission, unsure if new or chronic. Obtaining records. - Creatinine on 09/21 of 2.05, further decreased. Suggests initial presentation was prerenal due to dehydration. - Continue to monitor with daily BMP. (5) Leukocytosis: Plan: - WBC was 16 on admission. Covered in ED prophylactically in Rocephin. - CTAP on 09/17 with possible protocolitis; possible this is source of leukocytosis. - Abd u/s on 09/18 with perihepatic ascites. - Continue ceftriaxone -> Feel SBP fairly unlikely given lack of abdominal pain, resolution of leukocytosis. - Continue x7 days for SBP ppx, to complete on 09/24. - C. diff ordered given reports of diarrhea, multiple hospitalizations. (6) Weight loss: Plan: - Reports over 30 pounds of weight loss over the last several months. - Per patient colonoscopy recently was without evidence of mass/colon cancer. - Patient is a daily fdc smoker. Consider CT Chest to evaluate for lung cancer. Plan - full code - patient advanced to regular diet - SCDs for DVT ppx; no chemoprophylaxis at this time given low plts - Med/Tele Admission and Anticipated Discharge Date Admission Date: September 17, 2022 Subjective No acute events overnight. He reports diarrhea to me, which has been going on for 2 months. his stools are almost always diarrhea and he has a hard time holding his stools, such that he is incontinent rather frequently. he denies chest pain, SOB, further blood in his stools since admission. Denies abdominal pain. Review of Systems Constitutional: no fever and no chills Eyes: no blind spots and no diplopia Ear, Nose, Mouth, Throat: no nasal congestion and no epistaxis Respiratory: no cough and no dyspnea Cardiovascular: no chest pain and no palpitations Gastrointestinal: + diarrhea/loose stools; no abdominal pain, no nausea, no vomiting and no blood in stools Genitourinary: no dysuria or no hematuria Musculoskeletal: no back pain and no neck pain Integumentary: no rash and no skin ulcer Neurologic: no localized weakness and no loss of sensation Psychiatric: no behavioral changes and no confusion Endocrine: + fatigue Hematologic / Lymphatic: + easy bleeding and + easy bruising Physical Exam Constitutional: WD/WN, vitals as above Respiratory: normal respiratory effort, lungs clear to auscultation no respiratory distress Cardiovascular: RRR, no murmur, no edema Gastrointestinal (Abdomen): Inspection/Auscultation: abdomen normal to inspection; abdomen not distended Musculoskeletal: no cyanosis or clubbing, extremities motor strength 5/5 Skin: no rashes, warm and dry Neurologic: moves all extremities and awake Psychiatric: Orientation: alert, oriented to person and cooperative Results & Data Results & Data ([facility]) Vital Signs (Past 12 Hours) Vital Signs Temp Pulse Resp BP Pulse Ox O2 Del Method 09/21/22 11:57 36.2 C L 68 14 126/86 99 Room Air 09/21/22 02:59 36.5 C 79 16 93/61 L 96 Room Air PG Care Time/CCT Total # of Minutes Spent Total Time Spent with Patient: Total time spent is greater than 50% in coordination of care (as documented) at patient's floor/unit and/or counseling patient: Coding Level of Care Code 98550 Subseq Hosp Care Lvl 3 Diagnoses LGI bleed K92.2 Acute blood loss anemia D62 End stage liver disease K72.10 CKD (chronic kidney disease) N18.9 Chronic kidney disease stage: unspecified stage Leukocytosis D72.829 Leukocytosis type: unspecified Weight loss R63.4 (1) Leukocytosis Leukocytosis type: unspecified Qualified Code(s): D72.829 - Elevated white blood cell count, unspecified (2) CKD (chronic kidney disease) Chronic kidney disease stage: unspecified stage Qualified Code(s): N18.9 - Chronic kidney disease, unspecified
[2022-09-21] MEDS: cefTRIAXone SODIUM 1,000 MG in DEXTROSE 5% 50 ML IV SCH (14:59)
[2022-09-21] MEDS: TAMSULOSIN HCL 0.4 MG CAP PO SCH (21:05)
[2022-09-22 08:12] LABS: BUN Creatinine Ratio 17.1 (10-20); Calcium 7.6 mg/dl (8.5-10.1); Creatinine Clr Calc Pharmacy 42.5 ml/min; Est GFR (African American) 39.9 ml/min; Est GFR (Non-African American) 34.4 ml/min; Potassium 3.9 mmol/L (3.5-5.1)
[2022-09-22] MEDS ORDERED: SODIUM CHLORIDE 0.9% 1000ML 500 ML IV ONE ×2 (08:20→11:20)
--- NOTE | 2022-09-22 08:53 | Hospitalist Progress Note ---
Date of Service September 22, 2022 Assessment & Plan (1) LGI bleed: Plan: 61-year-old male past medical history significant for end-stage liver disease with cirrhosis, anemia of chronic disease admitted for lower GI bleed and elevated creatinine (suspected REGINALD on CKD). LGI Bleed, diarrhea: - BRBPR reported on 09/17. Colonoscopy with polypectomy on 09/03/2022 in [place]. Hgb was 13.9 on admission, stable over last several days to ~11. - GI consulted and appreciate recommendations: - EGD performed 09/20 with small non-bleeding esophageal varices, no stomach varices, and mild portal gastropathy. - Colonoscopy unable to be performed due to inadequate prep. Can be done outpatient as patient's Hgb has stabilized. - Continue ceftriaxone x7 days for SBP prophylaxis, to complete on 09/24. - Octreotide given on admission, discontinued post-EGD. - Protonix gtt discontinued in favor of daily PO Protonix. - Transfused platelets on 09/18 & 09/19 for plts < 50k with bleeding; plts 37 today, relatively stable without reports/evidence of bleeding today. - Continue to trend H&H. (2) Acute blood loss anemia: Plan: - Hgb was 13.9 on admission with unknown baseline. Hgb stable at ~11.5 for the last several days. - DVT ppx: SCDs; holding heparin for bleeding and thrombocytopenia. - Continue to trend CBC given LGIB and low plts. - Transfuse if Hgb <7. (3) End stage liver disease: Plan: - Patient receives care from [facility] in [place]. - CTAP: Questionable wall thickening of the left colon and rectum with surrounding infiltration. Correlate clinically for evidence of a non-specific proctocolitis. - MELD score: 27 on 09/17, 19.6% estimated 3-month mortality. - Patient will need close outpatient GI follow up. - Patient on Lasix 20mg daily but no evidence of fluid overload on exam and CT Chest without pulmonary edema. Continue to hold in favor of low sodium diet and serial exams, especially given REGINALD. (4) CKD (chronic kidney disease): Plan: - Cr 3.36 on admission, unsure if new or chronic. - Creatinine on 09/22 of 2.05, same as day before. Suggests initial presentation was prerenal due to dehydration and we are likely approaching his normal. - Continue to monitor with daily BMP. (5) Leukocytosis: Plan: - WBC was 16 on admission. Covered in ED prophylactically in Rocephin. - CTAP on 09/17 with possible protocolitis; possible this is source of leukocytosis. - Abd u/s on 09/18 with perihepatic ascites. - Continue ceftriaxone -> Feel SBP fairly unlikely given lack of abdominal pain, resolution of leukocytosis. - Continue x7 days for SBP ppx, to complete on 09/24. - C. diff ordered given reports of diarrhea, multiple hospitalizations. Unlikely as no BM since this was ordered yesterday. (6) Weight loss: Plan: - Reports over 30 pounds of weight loss over the last several months. - Endorses poor appetite. Food tastes normal, no nausea/vomiting/abdominal pain with eating. - Per patient colonoscopy recently was without evidence of mass/colon cancer. - Patient is a daily termite technician smoker. CT Chest w/o contrast done (contrast avoided due to REGINALD on CKD) with a few <5mm indeterminate pulmonary nodules in the LLL; consider follow up CT in 12 months given smoking Hx per Fleischner criteria. - Eating well the last several days, and weight up from 67.9 -> 77.5kg this admission. Do not feel this is fluid (I&O not accurate as (7) Hypotension: Plan: - In the setting of recent lower GI bleed and anemia (though stable as of the last few days). - BP high 80s this morning with BP high 70s with standing. Given total of 1L NSS today with improvement in BP. - Will monitor I/O; patient without much output over the last 24 hours however did not have much intake yesterday. Plan - full code - patient tolerating regular diet - SCDs for DVT ppx; no chemoprophylaxis at this time given low plts - Med/Tele Admission and Anticipated Discharge Date Admission Date: September 17, 2022 Subjective No acute events overnight. This afternoon patient's nurse was concerned regarding patient's BP high 80s this morning. Has been running 90-100 systolic this admission. Given 500cc bolus and BP improved to mid 90s systolic. On walking patient's BP dropped to high 70s systolic, without symptoms per patient. Another 500 cc bolus given with increase in BP to low 100s systolic. Review of Systems Constitutional: no fever and no chills Eyes: no blind spots and no diplopia Ear, Nose, Mouth, Throat: no nasal congestion and no epistaxis Respiratory: no cough and no dyspnea Cardiovascular: no chest pain and no palpitations Gastrointestinal: no abdominal pain, no nausea, no vomiting, no diarrhea/loose stools and no blood in stools Genitourinary: no dysuria or no hematuria Musculoskeletal: no back pain and no neck pain Integumentary: no rash and no skin ulcer Neurologic: no localized weakness and no loss of sensation Psychiatric: no behavioral changes and no confusion Endocrine: + fatigue Hematologic / Lymphatic: + easy bleeding and + easy bruising Physical Exam Constitutional: WD/WN, vitals as above Respiratory: normal respiratory effort, lungs clear to auscultation no respiratory distress Cardiovascular: RRR, no murmur, no edema Gastrointestinal (Abdomen): Inspection/Auscultation: abdomen normal to inspection; abdomen not distended Musculoskeletal: no cyanosis or clubbing, extremities motor strength 5/5 Skin: no rashes, warm and dry Neurologic: moves all extremities and awake Psychiatric: Orientation: alert, oriented to person and cooperative Results & Data Results & Data ([facility]) Vital Signs (Past 12 Hours) Vital Signs Temp Pulse Pulse Resp BP Pulse Ox O2 Del Method 09/22/22 07:34 36.5 C 72 18 89/62 L 95 Room Air 09/22/22 03:05 36.5 C 76 16 85/59 L 98 Room Air 09/21/22 22:23 58 L 09/21/22 22:58 36.4 C L 59 L 16 94/59 L 97 Room Air PG Care Time/CCT Total # of Minutes Spent Total Time Spent with Patient: Total time spent is greater than 50% in coordination of care (as documented) at patient's floor/unit and/or counseling patient: Coding Level of Care Code 52444 Subseq Hosp Care Lvl 3 Diagnoses LGI bleed K92.2 Acute blood loss anemia D62 End stage liver disease K72.10 CKD (chronic kidney disease) N18.9 Chronic kidney disease stage: unspecified stage Leukocytosis D72.829 Leukocytosis type: unspecified Weight loss R63.4 Hypotension I95.9 (1) Leukocytosis Leukocytosis type: unspecified Qualified Code(s): D72.829 - Elevated white blood cell count, unspecified (2) CKD (chronic kidney disease) Chronic kidney disease stage: unspecified stage Qualified Code(s): N18.9 - Chronic kidney disease, unspecified
[2022-09-22] MEDS: INSULIN ASPART PER UNIT SC SCH ×4 (08:55→20:15)
[2022-09-22] MEDS: allopurinoL 100 MG TAB PO SCH (08:56)
[2022-09-22] MEDS: ASCORBIC ACID 500 MG TAB PO SCH (08:56)
[2022-09-22] MEDS: TOPIRAMATE 100 MG TAB PO SCH ×2 (08:57→20:09)
[2022-09-22] MEDS: DULoxetine HCL 30 MG CAP PO SCH ×2 (08:57→20:10)
[2022-09-22] MEDS: PANTOprazole 40 MG TAB PO SCH (08:57)
[2022-09-22] MEDS: METOPROLOL SUCC 50MG EXT REL TAB PO SCH (08:57)
[2022-09-22] MEDS: busPIRone 5 MG TAB PO SCH ×2 (08:57→20:08)
[2022-09-22] MEDS: LURASIDONE HCL 40 MG TAB PO SCH (08:57)
[2022-09-22] MEDS: CYANOCOBALAMIN (B-12) 500 MCG TABLET PO SCH (08:57)
[2022-09-22] MEDS: PREGABALIN 150 MG CAP PO SCH ×2 (09:01→20:08)
[2022-09-22] MEDS: POTASSIUM CHLORIDE CRTAB 20 MEQ TABCR PO SCH (09:01)
[2022-09-22] MEDS: PSYLLIUM or GUAR GUM FIBER POWDER PACKET PO SCH (09:08)
[2022-09-22 10:00] LABS: Hematocrit (blood only) 31.1 % (40.1-51.0); Hemoglobin 11.2 g/dl (14.0-18.0); Mean Corpuscular Hemoglobin 29.6 pg (25.0-34.0); Mean Corpuscular Volume 82.3 fL (80.0-100.0); Platelet Count 37 K/uL (130-400); RDW Coefficient of Variation 17.5 % (11.5-14.5); RDW Standard Deviation 52.2 fL (36.4-46.3); Red Blood Count 3.78 M/uL (4.63-6.08); White Blood Count 7.18 K/ul (4.8-10.8)
--- NOTE | 2022-09-22 13:14 | Pharmacy Report ---
Pharmacy Glycemic Sign Off Nt - Date of Service September 22, 2022 - Assessment & Plan ASSESSMENT: * Pharmacy was consulted by Joanne Malagon on 09/17 for glycemic control and to write orders per [facility] inpatient glycemic control protocol. * Major changes made by pharmacy to antidiabetic regimen include: * added correction factor and carb ratio * Patient has been receiving/requiring <10 units of insulin per day for adequate glycemic control * BSGs ranging 77 to 150 mg/dl * Regimen has only required minor adjustments over the past 48hrs to achieve this level of control * Do not anticipate further changes in patient status that would quickly deteriorate glycemic control (i.e. patient to be NPO for upcoming procedure, steroids tapering, starting tube feedings, etc). * Please see recommendations for outpatient antidiabetic regimen below. PLAN FOR INPATIENT GLYCEMIC CONTROL: No changes needed to current regimen. * Would recommend continuing to hold metformin until renal function is back to baseline. Metformin is contraindicated with an eGFR of 30 or less. * Continue NovoLog per scale ACHS/Q6hrs while NPO * Goal range = 110 -140 mg/dl * CF = 25 mg/dl/unit * CR = 1 unit for ever 12 g CHO consumed * Pharmacy is signing off of glycemic consult and will no longer be making adjustments to inpatient regimen. Please feel free to re-consult if needed. Thank you.
--- NOTE | 2022-09-22 16:00 | CT Scan Report ---
CT chest diagnostic wo con CT DOSE: 232.47 mGycm HISTORY: weight loss, cough, smoking hx TECHNIQUE: Multiaxial CT images of the chest were performed without contrast. A dose lowering techni que was utilized adhering to the principles of ALARA. COMPARISON: Abdomen and pelvis CT 09/17/2022. FINDINGS: The central airways are patent. No pneumothorax. No pleural effusions. Mild emphysema is no gabby. A 3 mm nodule in the left upper lobe on image 111. A 5 mm nodule within the left lower lobe on i mage 161. A 3 mm nodule within the right upper lobe on image 68. Right lower lobe linear densities fa vor subsegmental atelectasis or scarring. No suspicious lytic or blastic osseous lesions. Subacute/he aling right posterior ninth rib fracture is noted. Partially visualized cirrhotic liver and upper abd ominal ascites again noted. Paraesophageal varices are also noted. There is thickening of the distal esophagus. The esophagus is mildly distended and fluid-filled. No hilar lymphadenopathy. Stable 9 mm anterior pericardial lymph node on image 233. Otherwise, no mediastinal lymphadenopathy. Normal calib er thoracic aorta. Moderate calcified plaque within the coronary arteries. IMPRESSION: 1. Right lower lobe linear densities favor subsegmental atelectasis. 2. Mild distended and fluid-filled esophagus. There is mild distal esophageal thickening and paraesop hageal varices again noted. 3. Cirrhotic liver with ascites again noted. This is only partially imaged on this study. 4. Emphysema. 5. A few scattered subcentimeter indeterminate pulmonary nodules with the largest in the left lower l obe measuring 5 mm. Please refer to the chart below. 6. Subacute/healing right posterior ninth rib fracture. No pneumothorax. Please refer to below summary of Fleischner criteria recommendations for follow-up of incidental CT n odules (Rubén Yost, Guidelines for management of small pulmonary nodules detected on CT scans: A sta tement from the Fleischner Society, Radiology 237: [phone].) SOLID NODULES Solitary nodule size: <6 mm * Low risk patients: no follow-up needed * high risk patients: optional CT at 12 months Solitary nodule size: 6-8 mm * Low risk patients: follow-up at 6-12 months, then consider further follow-up at 18-24 months * high risk patients: initial follow-up CT at 6-12 months and then at 18-24 months if no change Solitary nodule size: >8 mm * either low or high risk patients - consider follow-up CT at 3 months, and/or CT-PET, and/or biopsy Multiple nodules size: <6 mm * Low risk patients: no routine follow-up * high risk patients: optional CT at 12 months Multiple nodules size: 6-8 mm * Low risk patients: follow-up at 3-6 months, then consider further follow-up at 18-24 months * high risk patients: follow-up at 3-6 months, then at 18-24 months if no change Multiple nodules size: >8 mm * Low risk patients: follow-up at 3-6 months, then consider further follow-up at 18-24 months * high risk patients: follow-up at 3-6 months, then at 18-24 months if no change Note: newly detected indeterminate nodule in persons 35 years of age or older. * Low risk patients: minimal or absent history of smoking and/or other known risk factors * high risk patients: history of smoking or of other known risk factors (e.g. first degree relative with lung cancer, or exposure to asbestos, radon, uranium) * if a nodule up to 8 mm is partly solid or is ground glass further follow-up is required after 24 m onths to exclude possible slow growing adenocarcinoma (ELAYNE) SUBSOLID NODULES Solitary pure ground-glass nodule * nodule size <6 mm - no CT follow-up required * nodule size >=6 mm - follow-up CT at 6-12 months, then every 2 years until 5 years Solitary part-solid nodule * nodule size <6 mm - no CT follow-up required * nodule size >=6 mm - follow-up CT at 3-6 months. If unchanged, and solid component remains <6 mm, then annual follow-up for 5 years Multiple subsolid nodules * nodule size <6 mm - follow-up CT at 3-6 months, consider further follow-up at 2 and 4 years if sta ble * nodule size >=6 mm - follow-up CT at 3-6 months, subsequent management based on the most suspiciou s nodule(s) ACT 112: Negative or not required by law. Electronically signed by: Alistair Soriano M.D. 09/22/2022 3:59 PM
[2022-09-22] MEDS: cefTRIAXone SODIUM 1,000 MG in DEXTROSE 5% 50 ML IV SCH (16:14)
[2022-09-22] MEDS: TAMSULOSIN HCL 0.4 MG CAP PO SCH (20:09)
[2022-09-23 07:52] LABS: Hematocrit (blood only) 32.7 % (40.1-51.0); Hemoglobin 11.4 g/dl (14.0-18.0); Mean Corpuscular Hemoglobin 29.7 pg (25.0-34.0); Mean Corpuscular Hgb Conc 34.9 g/dL (32.0-36.0); Mean Corpuscular Volume 85.2 fL (80.0-100.0); Platelet Count 43 K/uL (130-400); RDW Coefficient of Variation 18.6 % (11.5-14.5); RDW Standard Deviation 55.8 fL (36.4-46.3); Red Blood Count 3.84 M/uL (4.63-6.08); White Blood Count 7.74 K/ul (4.8-10.8)
[2022-09-23 08:20] LABS: BUN Creatinine Ratio 14.8 (10-20); Creatinine Clr Calc Pharmacy 39.1 ml/min; Est GFR (Non-African American) 31.1 ml/min
[2022-09-23] MEDS: ASCORBIC ACID 500 MG TAB PO SCH (08:42)
[2022-09-23] MEDS: DULoxetine HCL 30 MG CAP PO SCH (08:42)
[2022-09-23] MEDS: allopurinoL 100 MG TAB PO SCH (08:42)
[2022-09-23] MEDS: busPIRone 5 MG TAB PO SCH (08:42)
[2022-09-23] MEDS: CYANOCOBALAMIN (B-12) 500 MCG TABLET PO SCH (08:42)
[2022-09-23] MEDS: LURASIDONE HCL 40 MG TAB PO SCH (08:42)
[2022-09-23] MEDS: TOPIRAMATE 100 MG TAB PO SCH (08:43)
[2022-09-23] MEDS: METOPROLOL SUCC 50MG EXT REL TAB PO SCH (08:43)
[2022-09-23] MEDS: PSYLLIUM or GUAR GUM FIBER POWDER PACKET PO SCH (08:43)
[2022-09-23] MEDS: PANTOprazole 40 MG TAB PO SCH (08:43)
[2022-09-23] MEDS: INSULIN ASPART PER UNIT SC SCH (08:43)
[2022-09-23] MEDS: PREGABALIN 150 MG CAP PO SCH (09:05)
[2022-09-23] MEDS: POTASSIUM CHLORIDE CRTAB 20 MEQ TABCR PO SCH (09:05)
--- NOTE | 2022-09-23 11:43 | Discharge Summary ---
Discharge Summary Date of Service September 23, 2022 Admission HPI Per Admitting Provider Darius Carter is a 61-year-old male with a past medical history of end-stage liver cirrhosis with known esophageal varices, low back pain, gout, venous stasis, anxiety,, hypertension, diabetes with neuropathy, migraine headaches who presents today with rectal bleeding that began last night. Had a polypectomy removed on September 03 in [place], had been doing well since then, however last night noted bright red blood that had soaked through his diaper and pants. He notes over the last 2 months he has had frequent nonbloody, nonpainful diarrhea and believes that is the reason he had a colonoscopy performed. He also has a 35 pound weight loss. He has had gait difficulties and weakness, no fever chills, abdominal pain, chest pain, shortness of breath, palpitations, hematochezia. Upon presentation to the ED, patient's vital signs have been within normal limits and stable. No prior labs available for reference, he has an elevated WBC at 16, Hgb 13.9, platelet count 73. INR 1.6. Bicarb slightly decreased 19, AG 12, BUN 66, creatinine 3.35. Sodium 140, no electrolyte abnormalities. Glucose elevated 175. T bili 2.6, AST 51, ammonia pending. COVID-negative. CT of the abdomen pelvis is suboptimal as it was done without oral and IV contrast, there is questionable thickening of the left colon and rectum with surrounding infiltration cirrhotic liver, splenomegaly, ascites, abdominal collaterals indicative of portal hypertension. Cholelithiasis. Subacute to chronic right transverse process fracture of L3. Subacute/chronic right posterior rib fractures. ED course: Protonix gtt w/ bolus, 1L NS bolus, octreotide, Rocephin. Admission Exam Per Admitting Provider General: awake, alert, no apparent distress, appears chronically ill Head: Normocephalic, atraumatic ENT: PERRL, EOMI, no pharyngeal exudate, mucous membranes moist Chest: Clear to auscultation, on room air, no adventitious breath sounds Cardiac: Regular rate and rhythm, no murmur, no JVD, normal peripheral pulses, good capillary refill Abdominal: Secular epigastric nodule/mass palpable on exam, with severe pain on palpation; NABS x 4 quadrants, abdomen is otherwise soft, nontender to palpation, no rebound, guarding or tenderness Extremities: Normal inspection, no peripheral edema or erythema, calfs nontender to palpation Psych: Normal mood and affect Neuro: AAO x 3, strength intact bilaterally and rated 5/5, no motor deficits, speech is clear, no peripheral sensory deficits Skin: no rash or erythema Principal Dx & Hospital Course #1 = Principal Diagnosis (1) LGI bleed: 61-year-old male past medical history significant for end-stage liver disease with cirrhosis, anemia of chronic disease admitted for lower GI bleed and elevated creatinine (suspected REGINALD on CKD). LGI Bleed, diarrhea: - BRBPR reported on 09/17. Colonoscopy with polypectomy on 09/03/2022 in [place]. Hgb was 13.9 on admission, stable over last several days ~11. - GI consulted and appreciate recommendations: - EGD performed 09/20 with small non-bleeding esophageal varices, no stomach varices, and mild portal gastropathy. - Colonoscopy unable to be performed due to inadequate prep. Can be done outpatient as patient's Hgb has stabilized. - Completed ceftriaxone x6 days for SBP prophylaxis; no bleeding varices. - Octreotide given on admission, discontinued post-EGD. - Transfused platelets on 09/18 & 09/19 for plts < 50k with bleeding; plts 43 today, stable over last several days without reports/evidence of bleeding today. - Repeat CBC outpatient on Tuesday. (2) Acute blood loss anemia: - Hgb was 13.9 on admission with unknown baseline. Hgb stable at ~11 for the last several days. - Repeat CBC Tuesday. (3) End stage liver disease: - Patient receives care from [facility] in [place]. - CTAP: Questionable wall thickening of the left colon and rectum with surrounding infiltration. Correlate clinically for evidence of a non-specific proctocolitis. - MELD score: 27 on 09/17, 19.6% estimated 3-month mortality. - Patient will need close outpatient GI follow up. Patient's liver specialist contacted and made aware of admission. - Patient on Lasix 20mg daily but no evidence of fluid overload on exam and CT Chest without pulmonary edema. Continue to hold in favor of low sodium diet and serial exams, especially given REGINALD. (4) CKD (chronic kidney disease): - Cr 3.36 on admission, unsure if new or chronic. - Creatinine 2.23 on day of discharge. - Primary care office called; patient's baseline ~2.0 so feel comfortable given stable for last several days to discharge with follow up BMP. (5) Leukocytosis: - WBC was 16 on admission. Covered in ED prophylactically in Rocephin. - CTAP on 09/17 with possible protocolitis; possible this is source of leukocytosis. - Abd u/s on 09/18 with perihepatic ascites. - C. diff unable to be collected due to no diarrhea after adding fiber supplement. (6) Weight loss: - Reports over 30 pounds of weight loss over the last several months. - Endorses poor appetite. Food tastes normal, no nausea/vomiting/abdominal pain with eating. - Per patient colonoscopy recently was without evidence of mass/colon cancer. - Patient is a daily terminal makeup operator smoker. CT Chest w/o contrast done (contrast avoided due to REGINALD on CKD) with a few <5mm indeterminate pulmonary nodules in the LLL; follow up CT in 12 months given smoking Hx per Fleischner criteria. - Eating well the last several days, and weight up from 67.9 -> 77.5kg this admission. (7) Hypotension: - Intermittent in 90s during admission. - 09/22 with BP low 80s; improved with IV fluids. Plan Dispo: home with home health services; close PCP and specialist follow up Discharge Exam Constitutional WD/WN, vitals as above Respiratory normal respiratory effort, lungs clear to auscultation no respiratory distress Cardiovascular RRR, no murmur, no edema Gastrointestinal (Abdomen) Inspection/Auscultation: abdomen normal to inspection; abdomen not distended Skin no rashes, warm and dry Neurologic moves all extremities and awake Psychiatric Orientation: alert, oriented to person and cooperative Updated Medication List Medication Instructions Recorded Confirmed Type allopurinol 100 mg tablet 100 mg PO DAILY 09/17/22 09/17/22 History ascorbic acid (vitamin C) 500 mg 500 mg PO DAILY 09/17/22 09/17/22 History tablet (Vitamin C) buspirone 5 mg tablet 5 mg PO BID 09/17/22 09/17/22 History cyanocobalamin (vitamin B-12) 500 mcg sublingual DAILY 09/17/22 09/17/22 History 1,000 mcg sublingual tablet diazepam 10 mg tablet 10 mg PO BID PRN Anxiety 09/17/22 09/17/22 History diphenoxylate-atropine 2.5 1 tab PO QID PRN Diarrhea 09/17/22 09/17/22 History mg-0.025 mg tablet duloxetine 30 mg capsule,delayed 30 mg PO BID 09/17/22 09/17/22 History release furosemide 20 mg tablet (Lasix) 20 mg PO DAILY 09/17/22 09/17/22 History lurasidone 60 mg tablet (Latuda) 60 mg PO DAILY 09/17/22 09/17/22 History metformin 1,000 mg tablet 1,000 mg PO BIDM 09/17/22 09/17/22 History metoprolol succinate 100 mg 100 mg PO DAILY 09/17/22 09/17/22 History tablet,extended release 24 hr pantoprazole 40 mg tablet,delayed 40 mg PO DAILY 09/17/22 09/17/22 History release pregabalin 300 mg capsule 300 mg PO BID 09/17/22 09/17/22 History tamsulosin 0.4 mg capsule 0.4 mg PO HS 09/17/22 09/17/22 History topiramate 100 mg tablet 100 mg PO BID 09/17/22 09/17/22 History PSYLLIUM or GUAR GUM FIBER SUP 1 pkg PO QAM #30 packets 09/23/22 Rx [METAMUCIL or NUTRISOURCE FIBER SUPPLEMENT] Hospital Stay Data Consultations 09/17/22 17:41 Consult Gastroenterology Routine Procedures Performed Operation Date: 09/20/22 16:45 Actual Procedures p Esophagogastroduodenoscopy - Lino Lafleur MD Diagnostic Imagining Performed 09/17/22 13:28 CT abd pelvis wo con Stat 09/18/22 11:48 US abdomen limited Routine 09/22/22 14:02 CT chest diagnostic wo con Routine Pending Results Patient Have Any Pending Studies at Discharge: No Discharge Instructions Given to Patient (Per Discharging Provider) You were admitted to the hospital for lower GI bleed. You were also noted to have elevation in your kidney numbers, which suggested a kidney injury due to dehydration and blood loss. You had an upper scope which did not show any bleeding sites. The team was unable to do the colonoscopy due to difficulty with the prep needed to do the colonoscopy. This will be scheduled outside of the hospital with the local Gastroenterology group. Your blood counts remained stable, and you did not require any blood transfusions. After a few days of fluids and time, you were felt to be safe for discharge home with the following recommendations: 1) STOP spironolactone and carvedilol until follow up with Dr. Egan. These were held because you were having low blood pressures after your GI bleeding. 2) START fiber supplements (for example, Metamucil). We started fiber in the hospital and your stools improved, so we recommend continuing this outside the hospital. You should follow the directions on the bottle and take daily for stool bulking. Please follow up with the GI doctors and with Dr. Chaudhry about your diarrhea. 3) Follow up with Gastroenterology for colonoscopy. Their office number is [phone] in case you don't hear from their office. 4) Follow up with Dr. Egan within 7 days of discharge. I have talked with the physicians and they know you were admitted to the hospital. 5) Follow up with Dr. Chaudhry regarding your liver disease and spleen swelling. 6) Continue all of your other home medications as listed below. Total Time Total Time Spent Total Time Spent (In Minutes): 45 Coding Level of Care Code D/C DAY MANAGEMENT >30 MINS Diagnoses LGI bleed K92.2 Acute blood loss anemia D62 End stage liver disease K72.10 CKD (chronic kidney disease) N18.9 Chronic kidney disease stage: unspecified stage Leukocytosis D72.829 Leukocytosis type: unspecified Weight loss R63.4 Hypotension I95.9
== END 2022-09-23 12:30 | disposition home health service (06) | DRG 378 ==
LOC: ED 11:39 → 2E 15:47 → SUATTDRO 15:47 → 2E 17:01 → 2N 09-19 15:39

== ENCOUNTER 2022-09-30 08:50 | Inpatient (IN) ==
[2022-09-30 09:28] LABS: Basophils # (auto) 0.08 K/uL (0-0.2); Basophils % (auto) 0.9 %; Eosinophils # (auto) 0.11 K/uL (0-0.50); Eosinophils % (auto) 1.3 %; Hematocrit (blood only) 30.8 % (40.1-51.0); Hemoglobin 10.7 g/dl (14.0-18.0); Immature Granulocytes # (auto) 0.05 K/uL (0.00-0.02); Immature Granulocytes % (auto) 0.6 %; Lymphocytes # (auto) 1.05 K/uL (1.2-3.4); Mean Corpuscular Hemoglobin 29.8 pg (25.0-34.0); Mean Corpuscular Hgb Conc 34.7 g/dL (32.0-36.0); Mean Corpuscular Volume 85.8 fL (80.0-100.0); Mean Platelet Volume 11.2 fL (9.4-12.4); Monocytes # (auto) 0.98 K/uL (0.24-0.82); Monocytes % (auto) 11.2 %; Nucleated RBC # (auto) 0.02 K/uL (0-0); Nucleated RBC % (auto) 0.2 %; Platelet Count 49 K/uL (130-400); RDW Coefficient of Variation 20.7 % (11.5-14.5); RDW Standard Deviation 59.8 fL (36.4-46.3); Red Blood Count 3.59 M/uL (4.63-6.08); White Blood Count 8.77 K/ul (4.8-10.8)
[2022-09-30 09:37] LABS: INR 1.4 (0.9-1.1); Partial Thromboplastin Ratio 1.6; Partial Thromboplastin Time 43.4 Seconds (21.0-31.0)
[2022-09-30 09:49] LABS: Anisocytosis Present; Echinocytes 1+
[2022-09-30 09:50] LABS: Albumin Globulin Ratio 0.9 (0.9-2); Bilirubin,Total 1.8 mg/dl (0.2-1.0); Calcium 8.5 mg/dl (8.5-10.1); Creatinine Clr Calc Pharmacy 31.6 ml/min; Est GFR (African American) 28.4 ml/min; Est GFR (Non-African American) 24.5 ml/min; Globulin 3.3 gm/dl (2.5-4.0); Magnesium 1.1 mg/dl (1.7-2.4); Potassium 2.9 mmol/L (3.5-5.1); Total Protein 6.3 gm/dl (6.0-8.3)
[2022-09-30 09:53] LABS: Troponin I High Sensitivity 19.6 pg/ml (0-20)
--- NOTE | 2022-09-30 09:56 | XRay Report ---
SINGLE VIEW CHEST CLINICAL HISTORY: Dyspnea. FINDINGS: An AP, portable, upright chest radiograph is correlated with chest CT dated 09/22/2022. The cardiomediastinal silhouette is unremarkable. There are low lung volumes with bibasilar scarring/ate lectasis. No airspace consolidation or large pleural effusion is identified. No pneumothorax is seen. The skeletal structures are osteopenic. The bony thorax is grossly intact. IMPRESSION: Low lung volumes with bibasilar atelectasis. ACT 112: Negative or not required by law. Electronically signed by: Hawk Mendoza M.D. 09/30/2022 9:54 AM
--- NOTE | 2022-09-30 10:09 | Emergency Department Note ---
History of Present Illness General Chief complaint: Illness Stated complaint: FULL OF FLUID, CANCER PATIENT Time Seen by Provider: 09/30/22 09:53 History of Present Illness Provider complaint: Abdominal pain Onset (ago): day(s) 2 Location: abdomen Maximum Pain Intensity: 6 Associated symptoms: + nausea/vomiting; no cough, no fever/chills, no headaches or no shortness of breath 61-year-old male presents emergency department for abdominal pain. Patient states he has been having abdominal pain for the last 2 days. He reports nausea but no vomiting. No fevers. Patient states his stomach has been increasing in size and they think that that he has fluid in his stomach. Patient reports she was recently seen at this facility and admitted for a week. Patient states he saw his outpatient PCP who referred him to [facility] after evaluating him after a post hospital inpatient stay visit. He states that [facility] they ran blood tests on him did a CAT scan and then he states "they said they could not do anything for me and discharge me". Patient states he called his doctors in [place] who told him to come to this facility to be transferred to [place]. Home Medications Medication Instructions Recorded Confirmed Type allopurinol 100 mg tablet 100 mg PO DAILY 09/17/22 09/17/22 History ascorbic acid (vitamin C) 500 mg 500 mg PO DAILY 09/17/22 09/17/22 History tablet (Vitamin C) buspirone 5 mg tablet 5 mg PO BID 09/17/22 09/17/22 History cyanocobalamin (vitamin B-12) 500 mcg sublingual DAILY 09/17/22 09/17/22 History 1,000 mcg sublingual tablet diazepam 10 mg tablet 10 mg PO BID PRN Anxiety 09/17/22 09/17/22 History diphenoxylate-atropine 2.5 1 tab PO QID PRN Diarrhea 09/17/22 09/17/22 History mg-0.025 mg tablet duloxetine 30 mg capsule,delayed 30 mg PO BID 09/17/22 09/17/22 History release furosemide 20 mg tablet (Lasix) 20 mg PO DAILY 09/17/22 09/17/22 History lurasidone 60 mg tablet (Latuda) 60 mg PO DAILY 09/17/22 09/17/22 History metformin 1,000 mg tablet 1,000 mg PO BIDM 09/17/22 09/17/22 History metoprolol succinate 100 mg 100 mg PO DAILY 09/17/22 09/17/22 History tablet,extended release 24 hr pantoprazole 40 mg tablet,delayed 40 mg PO DAILY 09/17/22 09/17/22 History release pregabalin 300 mg capsule 300 mg PO BID 09/17/22 09/17/22 History tamsulosin 0.4 mg capsule 0.4 mg PO HS 09/17/22 09/17/22 History topiramate 100 mg tablet 100 mg PO BID 09/17/22 09/17/22 History PSYLLIUM or GUAR GUM FIBER SUP 1 pkg PO QAM #30 packets 09/23/22 Rx [METAMUCIL or NUTRISOURCE FIBER SUPPLEMENT] Allergies Allergy/AdvReac Type Severity Reaction Status Date / Time INHALED ANTIHISTAMINES Allergy Severe THROAT Uncoded 09/20/22 08:35 SWELLS SHUT Past Med/Surg History Medical History Anemia Cirrhosis CKD (chronic kidney disease) End stage liver disease Leukocytosis LGI bleed Surgical History H/O rectal polypectomy History of colonoscopy Social History Smoking Status: Former smoker Cigarettes Per Day: 1; Second Hand Exposure: No; Hx Alcohol Use: No Hx Substance Use: No Preferred Language: Georgian Communication Ability: Effective Beliefs That Will Affect Care: None marital status: Single Current Living Situation: Significant Other Feels Safe at Home: Yes Assistive Devices: Cane and Walker Review of Systems A total of 10 systems reviewed and were otherwise negative Physical Exam Vital Signs Vital Signs - 24 hr 09/30/22 09:10 09/30/22 09:17 09/30/22 09:17 Temperature 36.3 C L Temperature Source Oral Pulse Rate 116 H Pulse Rate [Apical] 107 H Pulse Rate from SpO2 Sensor Respiratory Rate 16 20 Respiratory Effort / Characteristics Non-Labored Non-Labored Spontaneous Respiratory Depth Normal Normal Respiratory Pattern Regular Blood Pressure 121/64 Blood Pressure [Right Arm] 121/64 Blood Pressure Mean 83 Blood Pressure Mean [Right Arm] 83 Pulse Oximetry 100 96 96 Oxygen Delivery Method Room Air Room Air Room Air Sepsis Recent Fever Within 48 Hours No Sepsis New/Unexplained Change in Mental Status No Sepsis Action Taken by Nursing No Action Required 09/30/22 09:22 09/30/22 09:10 09/30/22 09:30 Temperature Temperature Source Pulse Rate 113 H 114 H Pulse Rate [Apical] Pulse Rate from SpO2 Sensor 115 H Respiratory Rate 22 17 Respiratory Effort / Characteristics Respiratory Depth Respiratory Pattern Blood Pressure 120/75 Blood Pressure [Right Arm] Blood Pressure Mean 90 Blood Pressure Mean [Right Arm] Pulse Oximetry 100 100 Oxygen Delivery Method Room Air Sepsis Recent Fever Within 48 Hours Sepsis New/Unexplained Change in Mental Status Sepsis Action Taken by Nursing 09/30/22 09:30 09/30/22 10:00 09/30/22 10:00 Temperature Temperature Source Pulse Rate 114 H 110 H Pulse Rate [Apical] Pulse Rate from SpO2 Sensor 113 H 110 H Respiratory Rate 13 16 Respiratory Effort / Characteristics Respiratory Depth Respiratory Pattern Blood Pressure 112/83 Blood Pressure [Right Arm] Blood Pressure Mean 92 Blood Pressure Mean [Right Arm] Pulse Oximetry 100 100 Oxygen Delivery Method Sepsis Recent Fever Within 48 Hours Sepsis New/Unexplained Change in Mental Status Sepsis Action Taken by Nursing 09/30/22 10:33 09/30/22 10:33 Temperature Temperature Source Pulse Rate 117 H Pulse Rate [Apical] Pulse Rate from SpO2 Sensor Respiratory Rate 19 Respiratory Effort / Characteristics Respiratory Depth Respiratory Pattern Blood Pressure 127/81 Blood Pressure [Right Arm] Blood Pressure Mean 96 Blood Pressure Mean [Right Arm] Pulse Oximetry 99 Oxygen Delivery Method Sepsis Recent Fever Within 48 Hours Sepsis New/Unexplained Change in Mental Status Sepsis Action Taken by Nursing Physical Exam GENERAL: He is oriented to person, place, and time. He appears well-developed and well-nourished. He does not appear distressed. HENT: Exam performed. - Head: Normocephalic and atraumatic. - Right Ear: External ear normal. No mastoid tenderness. - Left Ear: External ear normal. No mastoid tenderness. - Mouth/Throat: The oropharynx is clear and moist. No trismus in the jaw. No dental abscesses or uvula swelling. No oropharyngeal exudate or tonsillar abscesses. EYES: Conjunctivae and EOM are normal. Pupils are equal, round, and reactive to light. Right eye exhibits no discharge. Left eye exhibits no discharge. No scleral icterus. NECK: Normal range of motion. Neck supple. No JVD present. No spinous process tenderness present. No carotid bruit present. No rigidity. No tracheal deviation and normal range of motion present. No Brudzinski's sign and no Kernig's sign noted. CV: Tachycardic rate, regular rhythm, normal heart sounds and intact distal pulses. There is no peripheral edema. Palpable radial pulses bue. PULM/CHEST: Effort normal and breath sounds normal. No respiratory distress. No stridor. He has no wheezes. He has no rales. - Chest Wall: He exhibits no tenderness. ABD: The abdomen is soft. Bowel sounds are normal. He has no distension. No mass is present. There is no tenderness to palpation. There is no rebound, no guarding, no Santos's sign Rovsig negative. No fluid wave. MUSC/SKEL: Normal range of motion. There is no peripheral edema, tenderness or deformity. LYMPH: No cervical adenopathy. NEURO: He is alert and oriented to person, place, and time. He has normal strength. No cranial nerve deficit or sensory deficit. Coordination and gait normal. GCS eye subscore is 4. GCS verbal subscore is 5. GCS motor subscore is 6. Cerebellar tests wnl. SKIN: Tattoo of a swastika inflames over his left anterior chest. PSYCH: He has a normal mood and affect. Behavior is normal. Judgment and thought content normal. Course Course 0953: The patient was evaluated in room A3. A complete history and physical exam was performed Cardiac monitoring: An order was placed for continuous cardiac monitoring. The monitor shows a rate of 110 with sinus tachycardia rhythm EMR reviewed. Patient was recently admitted to this facility from September 17 to September 23. At that time the patient was admitted for GI bleed. The patient had an EGD done which showed very small esophageal varices less than 5 mm portal hypertensive gastropathy. Colonoscopy was unable to be completed due to poor preparation. Patient was completed with 6 days of Rocephin for rule out SBP. CT of the abdomen/pelvis showed splenomegaly and small amount of ascites with portal hypertension. Patient was discharged from this facility. Bedside ultrasound was placed on the patient and there is a scant amount of ascites that would not be amenable to drainage at bedside. 1207: Vital signs stable. Labs show hemoglobin of 10.7. INR 1.4. Potassium 2.9. Creatinine at baseline of 2.72. Magnesium low 1.1. CT of the abdomen does show cirrhotic liver with splenomegaly esophageal varices and moderate abdominopelvic ascites. Again bedside ultrasound does not show any drainable fluid collection at bedside. Discussed case with Dr. Saavedra will evaluate the patient for admission. Magnesium repletion will be started in the emergency department. Administered Medications Magnesium Sulfate/Dextrose (Magnesium Sulfate / D5w) 1 gm in 100 mls @ 100 mls/hr IV Q1H JASON Stop: 09/30/22 13:26 Last Admin: 09/30/22 12:29 Dose: 100 mls/hr Documented By: Infusion: 09/30/22 12:29 Dose: 0 mls/hr Documented By: Admin: 09/30/22 11:35 Dose: 100 mls/hr Documented By: DEEPIKA Discontinued Medications Potassium Chloride (Potassium Chloride 10 Meq Tabcr) 40 meq PO NOW STA Stop: 09/30/22 11:28 Last Admin: 09/30/22 11:36 Dose: 40 meq Documented By: DEEPIKA Medical Decision Making Laboratory Data Result diagrams: 09/30/22 09:10 09/30/22 09:10 Lab Results 09/30/22 09/30/22 09/30/22 Range/Units 09:10 09:10 09:10 WBC 8.77 (4.8-10.8) K/ul RBC 3.59 L (4.63-6.08) M/uL Hgb 10.7 L (14.0-18.0) g/dl Hct 30.8 L (40.1-51.0) % MCV 85.8 (80.0-100.0) fL MCH 29.8 (25.0-34.0) pg MCHC 34.7 (32.0-36.0) g/dL RDW Std Deviation 59.8 H (36.4-46.3) fL RDW Coeff of Suzanne 20.7 H (11.5-14.5) % Plt Count 49 L (130-400) K/uL MPV 11.2 (9.4-12.4) fL Immature Gran % (Auto) 0.6 % Neut % (Auto) 74.0 % Lymph % (Auto) 12.0 % [place] % (Auto) 11.2 % Eos % (Auto) 1.3 % Baso % (Auto) 0.9 % Neut # (Auto) 6.50 (1.4-6.5) K/uL Lymph # (Auto) 1.05 L (1.2-3.4) K/uL [place] # (Auto) 0.98 H (0.24-0.82) K/uL Eos # (Auto) 0.11 (0-0.50) K/uL Baso # (Auto) 0.08 (0-0.2) K/uL Immature Gran # (Auto) 0.05 H (0.00-0.02) K/uL Absolute Nucleated RBC 0.02 H (0-0) K/uL Nucleated RBC % (auto) 0.2 % Anisocytosis Present Echinocytes 1+ PT 15.0 H (9.0-12.0) Seconds INR 1.4 H (0.9-1.1) APTT 43.4 H (21.0-31.0) Seconds PTT Ratio 1.6 Sodium 140 (136-145) mmol/L Potassium 2.9 L (3.5-5.1) mmol/L Chloride 110 H (98-107) mmol/L Carbon Dioxide 16 L (21-32) mmol/L Anion Gap 14 H (3-11) BUN 30 H (6-23) mg/dl Creatinine 2.72 H (0.6-1.4) mg/dl Est Cr Clr Drug Dosing 31.6 ml/min Est GFR ( Amer) 28.4 ml/min Est GFR (Non-Af Amer) 24.5 ml/min BUN/Creatinine Ratio 11.0 (10-20) Glucose 177 H (70-99(Fasting)) mg/dl Calcium 8.5 (8.5-10.1) mg/dl Magnesium 1.1 L (1.7-2.4) mg/dl Total Bilirubin 1.8 H (0.2-1.0) mg/dl AST 34 (13-39) U/L ALT 42 (7-52) U/L Alkaline Phosphatase 169 H (34-104) U/L Troponin I High Sens 19.6 (0-20) pg/ml Total Protein 6.3 (6.0-8.3) gm/dl Albumin 3.0 L (3.4-5.0) gm/dl Globulin 3.3 (2.5-4.0) gm/dl Albumin/Globulin Ratio 0.9 (0.9-2) SARS-CoV-2, RNA, NAAT (NEGATIVE) 09/30/22 Range/Units 12:19 WBC (4.8-10.8) K/ul RBC (4.63-6.08) M/uL Hgb (14.0-18.0) g/dl Hct (40.1-51.0) % MCV (80.0-100.0) fL MCH (25.0-34.0) pg MCHC (32.0-36.0) g/dL RDW Std Deviation (36.4-46.3) fL RDW Coeff of Suzanne (11.5-14.5) % Plt Count (130-400) K/uL MPV (9.4-12.4) fL Immature Gran % (Auto) % Neut % (Auto) % Lymph % (Auto) % [place] % (Auto) % Eos % (Auto) % Baso % (Auto) % Neut # (Auto) (1.4-6.5) K/uL Lymph # (Auto) (1.2-3.4) K/uL [place] # (Auto) (0.24-0.82) K/uL Eos # (Auto) (0-0.50) K/uL Baso # (Auto) (0-0.2) K/uL Immature Gran # (Auto) (0.00-0.02) K/uL Absolute Nucleated RBC (0-0) K/uL Nucleated RBC % (auto) % Anisocytosis Echinocytes PT (9.0-12.0) Seconds INR (0.9-1.1) APTT (21.0-31.0) Seconds PTT Ratio Sodium (136-145) mmol/L Potassium (3.5-5.1) mmol/L Chloride (98-107) mmol/L Carbon Dioxide (21-32) mmol/L Anion Gap (3-11) BUN (6-23) mg/dl Creatinine (0.6-1.4) mg/dl Est Cr Clr Drug Dosing ml/min Est GFR ( Amer) ml/min Est GFR (Non-Af Amer) ml/min BUN/Creatinine Ratio (10-20) Glucose (70-99(Fasting)) mg/dl Calcium (8.5-10.1) mg/dl Magnesium (1.7-2.4) mg/dl Total Bilirubin (0.2-1.0) mg/dl AST (13-39) U/L ALT (7-52) U/L Alkaline Phosphatase (34-104) U/L Troponin I High Sens (0-20) pg/ml Total Protein (6.0-8.3) gm/dl Albumin (3.4-5.0) gm/dl Globulin (2.5-4.0) gm/dl Albumin/Globulin Ratio (0.9-2) SARS-CoV-2, RNA, NAAT NEGATIVE (NEGATIVE) Imaging Data Radiologist's Impression: Chest X-Ray 09/30/22 09:21 SINGLE VIEW CHEST CLINICAL HISTORY: Dyspnea. FINDINGS: An AP, portable, upright chest radiograph is correlated with chest CT dated 09/22/2022. The cardiomediastinal silhouette is unremarkable. There are low lung volumes with bibasilar scarring/atelectasis. No airspace consolidation or large pleural effusion is identified. No pneumothorax is seen. The skeletal structures are osteopenic. The bony thorax is grossly intact. IMPRESSION: Low lung volumes with bibasilar atelectasis. ACT 112: Negative or not required by law. Electronically signed by: Hawk Mendoza M.D. 09/30/2022 9:54 AM Abdomen/Pelvis CT 09/30/22 10:06 CT SCAN OF THE ABDOMEN AND PELVIS WITHOUT IV CONTRAST CLINICAL HISTORY: Lower abdominal pain. COMPARISON STUDY: Abdominal CT dated 09/17/2022. TECHNIQUE: CT scan of the abdomen and pelvis is performed from the lung bases to the proximal femora. Images are reviewed in the axial, sagittal, and coronal planes. IV contrast was not administered for this examination. Note that the examination is suboptimal without oral and IV contrast. A dose lowering technique was utilized adhering to the principles of ALARA. CT DOSE: 491.11 mGy.cm FINDINGS: Lung bases: The heart is normal in size and without pericardial effusion. The coronary arteries are densely calcified. There is mild lower lobe bronchiectasis. Scarring/atelectasis is seen at both lung bases. No airspace consolidation or pleural effusion is identified. The distal esophagus is patulous, thick walled, and distended with fluid. Esophageal varices are noted. Mild gynecomastia is observed. Liver: The unenhanced liver is cirrhotic in morphology and heterogeneous in attenuation with hypertrophy of the left lobe and nodularity of the hepatic surface contour. There is no intrahepatic biliary ductal dilatation. There is re canalization of the periumbilical vein. Gallbladder: There are calcified gallstones without CT evidence of acute cholecystitis. Spleen: The spleen is enlarged, measuring 17.9 cm in length. Pancreas: The unenhanced pancreas is atrophic and grossly unremarkable. Adrenal glands: Unremarkable. Kidneys: The unenhanced kidneys demonstrate cortical atrophy and/or without hyd ronephrosis. There are no renal calculi identified. There is no evidence of contour deforming renal mass lesion. Abdominal vasculature: The abdominal aorta is normal in course and caliber noting mild to moderate atherosclerotic calcification. Bowel: The gastric mucosa appears thickened. No bowel obstruction is seen. A small duodenal diverticulum is incidentally noted. Moderate fecal retention is seen throughout the colon. There is colonic wall thickening and edema, greatest involving the right colon. Infiltration is seen on the left colon. The rectal wall also appears thickened. The appendix is not identified and reported surgically absent. Peritoneum: There is a moderate to large volume of abdominopelvic ascites. No intraperitoneal free air is seen. Collateral vessels are noted in the upper abdomen. Lymphadenopathy: Mildly enlarged upper abdominal lymph nodes are likely related to chronic liver disease. Pelvic viscera: The bladder is decompressed and grossly unremarkable. The prostate gland is diminutive and heterogeneous. Skeletal structures: The skeletal structures are osteopenic. There is mild lumbosacral spondylosis with evidence of L3-L5 spinal fusion. No lytic or blastic lesions are seen. There are chronic right rib fractures, as well as a chronic right transverse process fracture of L3. IMPRESSION: 1. The liver is cirrhotic in morphology and heterogeneous in attenuation. 2. Splenomegaly, esophageal varices, and a moderate to large volume of abdominopelvic ascites indicate portal hypertension. 3. The colonic wall appears diffusely thickened and edematous, greatest involving the right colon. Inflammatory change is seen around the left colon. These findings could represent a nonspecific proctocolitis and/or portal colopathy. Clinical correlation will be required. 4. Cholelithiasis. 5. The distal esophagus is patulous, thick-walled, and filled with fluid. Correlate clinically for evidence of esophagitis. Note that this may place the p atient at risk for aspiration. 6. The gastric mucosa appears thickened. Correlate clinically for evidence of gastritis. This is not well assessed by CT. The gastroesophageal findings could be further assessed with endoscopy if clinically warranted. 7. Advanced coronary artery calcification. 8. Additional findings as above. ACT 112: Negative or not required by law. Electronically signed by: Hawk Mendoza M.D. 09/30/2022 11:02 AM ECG Data Indication: + abdominal pain and + weakness Rate (beats per minute): 115 Rhythm: + sinus tachycardia ECG Intervals/blocks: + Normal QRS, + Normal [place] and + Normal QT-c ECG ST segments: + Normal ST segments MDM Narrative 0953: The patient was evaluated in room A3. A complete history and physical exam was performed Cardiac monitoring: An order was placed for continuous cardiac monitoring. The monitor shows a rate of 110 with sinus tachycardia rhythm EMR reviewed. Patient was recently admitted to this facility from September 17 to September 23. At that time the patient was admitted for GI bleed. The patient had an EGD done which showed very small esophageal varices less than 5 mm portal hypertensive gastropathy. Colonoscopy was unable to be completed due to poor preparation. Patient was completed with 6 days of Rocephin for rule out SBP. CT of the abdomen/pelvis showed splenomegaly and small amount of ascites with portal hypertension. Patient was discharged from this facility. Bedside ultrasound was placed on the patient and there is a scant amount of ascites that would not be amenable to drainage at bedside. 1207: Vital signs stable. Labs show hemoglobin of 10.7. INR 1.4. Potassium 2.9. Creatinine at baseline of 2.72. Magnesium low 1.1. CT of the abdomen does show cirrhotic liver with splenomegaly esophageal varices and moderate abdominopelvic ascites. Again bedside ultrasound does not show any drainable fluid collection at bedside. Discussed case with Dr. Saavedra will evaluate the patient for admission. Magnesium repletion will be started in the emergency department. Impression & Plan Hypomagnesemia, Hypokalemia Discharge Plan Visit Data Chief Complaint: Illness Stated Complaint: FULL OF FLUID, CANCER PATIENT ED Provider: Alphonse Reyes Discharge Problem: Hypomagnesemia, Hypokalemia Patient Disposition: Being Evaluated by Hospitalist Forms Stand Alone Forms: [facility] Prescriptions Prescriptions: No Action buspirone 5 mg Tablet 5 mg PO BID metoprolol succinate 100 mg tablet extended release 24 hr 100 mg PO DAILY diphenoxylate-atropine 2.5-0.025 mg tablet 1 tab PO QID PRN (Reason: Diarrhea) allopurinol 100 mg Tablet 100 mg PO DAILY ascorbic acid (vitamin C) [Vitamin C] 500 mg Tablet 500 mg PO DAILY tamsulosin 0.4 mg Capsule 0.4 mg PO HS pantoprazole 40 mg Tablet,Delayed Release (Dr/Ec) 40 mg PO DAILY metformin 1,000 mg Tablet 1,000 mg PO BIDM cyanocobalamin (vitamin B-12) 1,000 mcg Tablet, Sublingual 500 mcg SUBLINGUAL DAILY furosemide [Lasix] 20 mg Tablet 20 mg PO DAILY diazepam 10 mg tablet 10 mg PO BID MDD 20 MG/24 HOURS PRN (Reason: Anxiety) topiramate 100 mg Tablet 100 mg PO BID duloxetine 30 mg Capsule,Delayed Release(Dr/Ec) 30 mg PO BID pregabalin 300 mg Capsule 300 mg PO BID Latuda 60 mg tablet 60 mg PO DAILY Psyllium Or Guar Gum Fiber Sup [Metamucil Or Nutrisource Fiber Supplement] 1 pkg PO QAM Qty: 30 0RF Referrals Referrals: Almas Egan M.D. [Primary Care Provider] -
--- NOTE | 2022-09-30 10:39 | Electrocardiogram Report ---
Test Reason : Blood Pressure : / mmHG Vent. Rate : 115 BPM Atrial Rate : 115 BPM P-R Int : 128 ms QRS Dur : 094 ms QT Int : 360 ms P-R-T Axes : 049 045 219 degrees QTc Int : 498 ms Sinus tachycardia Diffuse Nonspecific ST and T wave abnormality Abnormal ECG When compared with ECG of 17-SEP-2022 11:55, Premature ventricular complexes are no longer Present Confirmed by Paulie Shaikh ([id number]) on 09/30/2022 10:38:37 AM Referred By: Confirmed By:Paulie Shaikh
--- NOTE | 2022-09-30 11:04 | CT Scan Report ---
CT SCAN OF THE ABDOMEN AND PELVIS WITHOUT IV CONTRAST CLINICAL HISTORY: Lower abdominal pain. COMPARISON STUDY: Abdominal CT dated 09/17/2022. TECHNIQUE: CT scan of the abdomen and pelvis is performed from the lung bases to the proximal femora. Images are reviewed in the axial, sagittal, and coronal planes. IV contrast was not administered for this examination. Note that the examination is suboptimal without oral and IV contrast. A dose lower ing technique was utilized adhering to the principles of ALARA. CT DOSE: 491.11 mGy.cm FINDINGS: Lung bases: The heart is normal in size and without pericardial effusion. The coronary arteries are d ensely calcified. There is mild lower lobe bronchiectasis. Scarring/atelectasis is seen at both lung bases. No airspace consolidation or pleural effusion is identified. The distal esophagus is patulous, thick walled, and distended with fluid. Esophageal varices are noted. Mild gynecomastia is observed. Liver: The unenhanced liver is cirrhotic in morphology and heterogeneous in attenuation with hypertro phy of the left lobe and nodularity of the hepatic surface contour. There is no intrahepatic biliary ductal dilatation. There is recanalization of the periumbilical vein. Gallbladder: There are calcified gallstones without CT evidence of acute cholecystitis. Spleen: The spleen is enlarged, measuring 17.9 cm in length. Pancreas: The unenhanced pancreas is atrophic and grossly unremarkable. Adrenal glands: Unremarkable. Kidneys: The unenhanced kidneys demonstrate cortical atrophy and/or without hydronephrosis. There are no renal calculi identified. There is no evidence of contour deforming renal mass lesion. Abdominal vasculature: The abdominal aorta is normal in course and caliber noting mild to moderate at herosclerotic calcification. Bowel: The gastric mucosa appears thickened. No bowel obstruction is seen. A small duodenal diverticu lum is incidentally noted. Moderate fecal retention is seen throughout the colon. There is colonic wa ll thickening and edema, greatest involving the right colon. Infiltration is seen on the left colon. The rectal wall also appears thickened. The appendix is not identified and reported surgically absen t. Peritoneum: There is a moderate to large volume of abdominopelvic ascites. No intraperitoneal free ai r is seen. Collateral vessels are noted in the upper abdomen. Lymphadenopathy: Mildly enlarged upper abdominal lymph nodes are likely related to chronic liver dise ase. Pelvic viscera: The bladder is decompressed and grossly unremarkable. The prostate gland is diminutiv e and heterogeneous. Skeletal structures: The skeletal structures are osteopenic. There is mild lumbosacral spondylosis wi th evidence of L3-L5 spinal fusion. No lytic or blastic lesions are seen. There are chronic right rib fractures, as well as a chronic right transverse process fracture of L3. IMPRESSION: 1. The liver is cirrhotic in morphology and heterogeneous in attenuation. 2. Splenomegaly, esophageal varices, and a moderate to large volume of abdominopelvic ascites indicat e portal hypertension. 3. The colonic wall appears diffusely thickened and edematous, greatest involving the right colon. In flammatory change is seen around the left colon. These findings could represent a nonspecific proctoc olitis and/or portal colopathy. Clinical correlation will be required. 4. Cholelithiasis. 5. The distal esophagus is patulous, thick-walled, and filled with fluid. Correlate clinically for ev idence of esophagitis. Note that this may place the patient at risk for aspiration. 6. The gastric mucosa appears thickened. Correlate clinically for evidence of gastritis. This is not well assessed by CT. The gastroesophageal findings could be further assessed with endoscopy if clinic ally warranted. 7. Advanced coronary artery calcification. 8. Additional findings as above. ACT 112: Negative or not required by law. Electronically signed by: Hawk Mendoza M.D. 09/30/2022 11:02 AM
[2022-09-30] MEDS ORDERED: POTASSIUM CHLORIDE 10 MEQ TABCR PO STA (11:27)
[2022-09-30] MEDS: MAGNESIUM SULFATE / D5W 1 GM/100 ML BAG IV SCH ×2 (11:35→12:29)
--- NOTE | 2022-09-30 12:17 | History & Physical Report ---
Date of Service September 30, 2022 Assessment & Plan (1) Hypokalemia: Plan: pt has been having diarrhea and has hypokalemia and hypomagnesemia, this likely worsened by lasix use. will replete but continue on lasix for ascites management and LE edema management, will consider spironolactone Patient also has hypomagnesemia which is likely [id number] with the above hypokalemia this will be repleted 2 g of magnesium were given the emergency department (2) Diarrhea: Plan: Patient's had months worth of diarrhea according to the patient. He has proctocolitis seen on his imaging. He was treated with Rocephin during his last hospital stay for consideration of SBP prophylaxis. Subsequently the patient will have a stool PCR and C. difficile be put on intravenous ciprofloxacin and metronidazole at this time. He does not examine like he is got an acute abdomen or peritonitis at this time. If he develops systemic concerns for infection blood and urine cultures will also be obtained (3) End stage liver disease: Plan: pts MELD score has been calculated to 22, this is improved but still has 19% mortality will need low salt diet, and eventual referal to Liver specalist at [facility] (4) CKD (chronic kidney disease): Plan: CKD 3 his renal function has improved from last admission, watch with potassium repletion (5) Anemia: Plan: HGb is 10.7 remains stable from last d/c at 11 Plan Patient and I do long discussion regarding his chronic liver disease. Initially the patient requested transfer from our hospital to [facility] as he said the liver specialist told him to have that occur. I informed the patient that there was no imminent pressing problem that would require emergent hospital hospital transfer. I told the patient we would replete his potassium magnesium and check his stool for the proctocolitis seen on imaging and his persistent diarrhea. History of Present Illness Primary Care Provider: Almas Egan 61-year-old male discharged from [facility] September 23 after GI bleed found to have esophageal varices and cirrhosis. Attempts of colonoscopy due to inadequate prep cannot be performed. Patient reportedly had a polypectomy in [place] September 03. During his stay he completed ceftriaxone for 6 days for SBP prophylaxis and there was some description on imaging of having proctocolitis. Patient reportedly had intermittent diarrhea over the last 2 months and some weight loss Patient represents today with a confusing story says he was referred from [facility] for transfer to their facility. The patient states he sought care initially at [facility] where they screened him and felt he did not warrant admission. Here in our evaluation the patient has hypokalemia and hypomagnesemia. He has repeat CT imaging showing proctocolitis. However the remainder of his serological studies show slight improvement from his last hospital stay with improved renal function slightly lower meld score platelet count stable at 49 and equivocal hemoglobin. Clinically the patient has no new focal complaints or problems she does have some right quadrant discomfort which is likely from stretching of his liver capsule Patient will be admitted for repletion of his significant hypokalemia 2.9 hypomagnesemia 1.5 and PCR analysis of stool for infectious etiology including C. difficile Allergies Allergy/AdvReac Type Severity Reaction Status Date / Time INHALED ANTIHISTAMINES Allergy Severe THROAT Uncoded 09/20/22 08:35 SWELLS SHUT Home Medications Medication Instructions Recorded Confirmed Type allopurinol 100 mg tablet 100 mg PO DAILY 09/17/22 09/17/22 History ascorbic acid (vitamin C) 500 mg 500 mg PO DAILY 09/17/22 09/17/22 History tablet (Vitamin C) buspirone 5 mg tablet 5 mg PO BID 09/17/22 09/17/22 History cyanocobalamin (vitamin B-12) 500 mcg sublingual DAILY 09/17/22 09/17/22 History 1,000 mcg sublingual tablet diazepam 10 mg tablet 10 mg PO BID PRN Anxiety 09/17/22 09/17/22 History diphenoxylate-atropine 2.5 1 tab PO QID PRN Diarrhea 09/17/22 09/17/22 History mg-0.025 mg tablet duloxetine 30 mg capsule,delayed 30 mg PO BID 09/17/22 09/17/22 History release furosemide 20 mg tablet (Lasix) 20 mg PO DAILY 09/17/22 09/17/22 History lurasidone 60 mg tablet (Latuda) 60 mg PO DAILY 09/17/22 09/17/22 History metformin 1,000 mg tablet 1,000 mg PO BIDM 09/17/22 09/17/22 History metoprolol succinate 100 mg 100 mg PO DAILY 09/17/22 09/17/22 History tablet,extended release 24 hr pantoprazole 40 mg tablet,delayed 40 mg PO DAILY 09/17/22 09/17/22 History release pregabalin 300 mg capsule 300 mg PO BID 09/17/22 09/17/22 History tamsulosin 0.4 mg capsule 0.4 mg PO HS 09/17/22 09/17/22 History topiramate 100 mg tablet 100 mg PO BID 09/17/22 09/17/22 History PSYLLIUM or GUAR GUM FIBER SUP 1 pkg PO QAM #30 packets 09/23/22 Rx [METAMUCIL or NUTRISOURCE FIBER SUPPLEMENT] Past Med/Surg History Medical History (Updated 09/30/22 @ 12:35 by Franklin Mendoza MD) Anemia Cirrhosis CKD (chronic kidney disease) End stage liver disease Leukocytosis LGI bleed Surgical History H/O rectal polypectomy History of colonoscopy Social History Smoking Status: Former smoker Cigarettes Per Day: 1; Second Hand Exposure: No; Hx Alcohol Use: No Hx Substance Use: No Preferred Language: Frisian Communication Ability: Effective Beliefs That Will Affect Care: None marital status: Single Current Living Situation: Significant Other Feels Safe at Home: Yes Assistive Devices: Cane and Walker Review of Systems Review of Systems: Mild distress and moderate fatigue no headache, no visual changes no speech or swallowing issues no chest pain, pressure or palpitations no shortness of breath, cough or wheezes no abdominal pain, nausea or vomiting, does have post prandial fullness, continued diarrhea no dysuria, hematuria or frequency no focal joint pain or swelling no back pain, CVA tenderness or radicular pain chronic bruising and discoloration to lower legs no focal signs of weakness or numbness or altered sensation no complaints of anxiety or depression.. Physical Exam Physical Exam: The patient appeared chronically ill Vital signs as documented. Head exam is normocephalic atraumatic Neck is with 2 cm JVD, thyromegaly, or carotid bruits. Lungs are clear to auscultation, no focal loss of breath sounds Cardiac exam, Rhythm is regular.. No murmurs, rubs or gallops. Abdominal exam reveals normal bowel sounds, soft No tense distention no fluid wave perhaps hepatomegaly with some discomfort to palpation Extremities are edematous discolored and full of petechia Neurologic exam is alert and oriented, no focal loss of strength or sensation no asterixis Skin is with bruises and skin discoloration Psychologically is without concerns for anxiety or depression.. Results & Data Results & Data ([facility]) Vital Signs (Past 12 Hours) Vital Signs Temp Pulse Pulse Resp BP BP Pulse Ox 09/30/22 10:33 117 H 19 99 09/30/22 10:33 127/81 09/30/22 10:00 110 H 16 100 09/30/22 10:00 112/83 09/30/22 09:30 114 H 13 100 09/30/22 09:30 120/75 09/30/22 09:10 114 H 17 100 09/30/22 09:22 113 H 22 100 09/30/22 09:17 96 09/30/22 09:17 107 H 20 121/64 96 09/30/22 09:10 97.3 F L 116 H 16 121/64 100 O2 Del Method 09/30/22 10:33 09/30/22 10:33 09/30/22 10:00 09/30/22 10:00 09/30/22 09:30 09/30/22 09:30 09/30/22 09:10 09/30/22 09:22 Room Air 09/30/22 09:17 Room Air 09/30/22 09:17 Room Air 09/30/22 09:10 Room Air Diagnostic Findings Chest X-Ray 09/30/22 09:21 SINGLE VIEW CHEST CLINICAL HISTORY: Dyspnea. FINDINGS: An AP, portable, upright chest radiograph is correlated with chest CT dated 09/22/2022. The cardiomediastinal silhouette is unremarkable. There are low lung volumes with bibasilar scarring/atelectasis. No airspace consolidation or large pleural effusion is identified. No pneumothorax is seen. The skeletal structures are osteopenic. The bony thorax is grossly intact. IMPRESSION: Low lung volumes with bibasilar atelectasis. Electronically signed by: Hawk Mendoza M.D. 09/30/2022 9:54 AM Abdomen/Pelvis CT 09/30/22 10:06 CT SCAN OF THE ABDOMEN AND PELVIS WITHOUT IV CONTRAST CLINICAL HISTORY: Lower abdominal pain. COMPARISON STUDY: Abdominal CT dated 09/17/2022. TECHNIQUE: CT scan of the abdomen and pelvis is performed from the lung bases to the proximal femora. Images are reviewed in the axial, sagittal, and coronal planes. IV contrast was not administered for this examination. Note that the examination is suboptimal without oral and IV contrast. A dose lowering technique was utilized adhering to the principles of ALARA. CT DOSE: 491.11 mGy.cm FINDINGS: Lung bases: The heart is normal in size and without pericardial effusion. The coronary arteries are densely calcified. There is mild lower lobe bronchiectasis. Scarring/atelectasis is seen at both lung bases. No airspace consolidation or pleural effusion is identified. The distal esophagus is patulous, thick walled, and distended with fluid. Esophageal varices are noted. Mild gynecomastia is observed. Liver: The unenhanced liver is cirrhotic in morphology and heterogeneous in attenuation with hypertrophy of the left lobe and nodularity of the hepatic surface contour. There is no intrahepatic biliary ductal dilatation. There is recanalization of the periumbilical vein. Gallbladder: There are calcified gallstones without CT evidence of acute cholecystitis. Spleen: The spleen is enlarged, measuring 17.9 cm in length. Pancreas: The unenhanced pancreas is atrophic and grossly unremarkable. Adrenal glands: Unremarkable. Kidneys: The unenhanced kidneys demonstrate cortical atrophy and/or without hydronephrosis. There are no renal calculi identified. There is no evidence of contour deforming renal mass lesion. Abdominal vasculature: The abdominal aorta is normal in course and caliber noting mild to moderate atherosclerotic calcification. Bowel: The gastric mucosa appears thickened. No bowel obstruction is seen. A small duodenal diverticulum is incidentally noted. Moderate fecal retention is seen throughout the colon. There is colonic wall thickening and edema, greatest involving the right colon. Infiltration is seen on the left colon. The rectal wall also appears thickened. The appendix is not identified and reported surg ically absent. Peritoneum: There is a moderate to large volume of abdominopelvic ascites. No intraperitoneal free air is seen. Collateral vessels are noted in the upper abdomen. Lymphadenopathy: Mildly enlarged upper abdominal lymph nodes are likely related to chronic liver disease. Pelvic viscera: The bladder is decompressed and grossly unremarkable. The prostate gland is diminutive and heterogeneous. Skeletal structures: The skeletal structures are osteopenic. There is mild lumbosacral spondylosis with evidence of L3-L5 spinal fusion. No lytic or blastic lesions are seen. There are chronic right rib fractures, as well as a chronic right transverse process fracture of L3. IMPRESSION: 1. The liver is cirrhotic in morphology and heterogeneous in attenuation. 2. Splenomegaly, esophageal varices, and a moderate to large volume of abdominopelvic ascites indicate portal hypertension. 3. The colonic wall appears diffusely thickened and edematous, greatest involving the right colon. Inflammatory change is seen around the left colon. These findings could represent a nonspecific proctocolitis and/or portal colopathy. Clinical correlation will be required. 4. Cholelithiasis. 5. The distal esophagus is patulous, thick-walled, and filled with fluid. Correlate clinically for evidence of esophagitis. Note that this may place the patient at risk for aspiration. 6. The gastric mucosa appears thickened. Correlate clinically for evidence of gastritis. This is not well assessed by CT. The gastroesophageal findings could be further assessed with endoscopy if clinically warranted. 7. Advanced coronary artery calcification. 8. Additional findings as above. Electronically signed by: Hawk Mendoza M.D. 09/30/2022 11:02 AM ECG Additional Comments: NSR with no acute changes Code Status & VTE Plan VTE Prophylaxis Plan VTE Prophylaxis will be ordered: No Reason for no VTE drug order: Contraindicated PG Care Time/CCT Total # of Minutes Spent Total Time Spent with Patient: Total time spent is greater than 50% in coordination of care (as documented) at patient's floor/unit and/or counseling patient: Coding Level of Care Code 23579 Initial Inpt Care Lvl 3 Diagnoses Hypokalemia E87.6 Diarrhea R19.7 End stage liver disease K72.10 CKD (chronic kidney disease) N18.9 Chronic kidney disease stage: unspecified stage Anemia D64.9 Anemia type: unspecified type (1) CKD (chronic kidney disease) Chronic kidney disease stage: unspecified stage Qualified Code(s): N18.9 - Chronic kidney disease, unspecified (2) Anemia Anemia type: unspecified type Qualified Code(s): D64.9 - Anemia, unspecified
[2022-09-30] MEDS ORDERED: ONDANSETRON INJ 2 MG/ML 2 ML VIAL IV PRN (14:51)
[2022-09-30] MEDS ORDERED: ALUMINUM/MAGNESIUM SUSP 30 ML UDC PO PRN (14:51)
[2022-09-30] MEDS: POTASSIUM CHLORIDE / WTR 10 MEQ/100 ML PLCT IV SCH ×3 (15:40→17:45)
[2022-09-30] MEDS: metroNIDAZOLE 500 MG/100 ML BAG IV SCH ×2 (15:41→23:50)
[2022-09-30] MEDS: CIPROFLOXACIN / D5W 400 MG/200 ML BAG IV SCH (15:41)
[2022-09-30] MEDS: busPIRone 5 MG TAB PO SCH (20:33)
[2022-09-30] MEDS: DULoxetine HCL 30 MG CAP PO SCH (20:34)
[2022-09-30] MEDS: PREGABALIN 150 MG CAP PO SCH (20:34)
[2022-09-30] MEDS: TAMSULOSIN HCL 0.4 MG CAP PO SCH (20:34)
[2022-09-30] MEDS: TOPIRAMATE 100 MG TAB PO SCH (20:35)
[2022-09-30] MEDS: POTASSIUM CHLORIDE CRTAB 20 MEQ TABCR PO SCH (20:54)
[2022-10-01] MEDS: CIPROFLOXACIN / D5W 400 MG/200 ML BAG IV SCH ×2 (03:25→16:35)
[2022-10-01 06:47] LABS: Hemoglobin 9.5 g/dl (14.0-18.0); Mean Corpuscular Hemoglobin 29.7 pg (25.0-34.0); Mean Corpuscular Hgb Conc 35.2 g/dL (32.0-36.0); Mean Corpuscular Volume 84.4 fL (80.0-100.0); Mean Platelet Volume 10.7 fL (9.4-12.4); Platelet Count 32 K/uL (130-400); RDW Coefficient of Variation 20.2 % (11.5-14.5); RDW Standard Deviation 56.3 fL (36.4-46.3); White Blood Count 6.58 K/ul (4.8-10.8)
[2022-10-01 06:58] LABS: INR 1.4 (0.9-1.1); Prothrombin Time 15.1 Seconds (9.0-12.0)
[2022-10-01 07:18] LABS: Albumin Level 2.7 gm/dl (3.4-5.0); Bilirubin,Total 1.4 mg/dl (0.2-1.0); Creatinine Clr Calc Pharmacy 34.8 ml/min; Est GFR (African American) 31.2 ml/min; Globulin 2.8 gm/dl (2.5-4.0); Magnesium 1.3 mg/dl (1.7-2.4); Potassium 3.6 mmol/L (3.5-5.1); Total Protein 5.5 gm/dl (6.0-8.3)
--- NOTE | 2022-10-01 07:55 | Hospitalist Progress Note ---
Date of Service October 01, 2022 Assessment & Plan (1) Hypokalemia: Plan: Pt reported with weakness, reported had been having diarrhea. On admission with hypoK, hypoMag (likely worsened by lasix use and spironolactone d/c last admit for low BPs w/ his GI bleed) Electrolyte abnormalities/Hypokalemia/Hypomagnesemia (NSR w/ PVCs on monitor) K 2.9 * -- replacement ordered and 3.6 on repeat. * --Continues 20meq PO BID in meantime as well as lasix 20mg PO * -- Of note, last admission for GI Bleed beginning of the month, spironolactone was discontinued for low BPs with his GI bleed Mag 1.1-- 2gm IV ordered --> 1.3 on repeat and additional replacement ordered * Repeat labs this afternoon to ensure stable/no further repalcement Was also placed on protonix gtt, transitioned back to PPI but only once daily on discharge * ?If PPI gtt inpatient worsened hypomagnesemia as below (1.5 on admit) -- had been 1.3/1.1 during last inpatient stay, was repeated x 1 but nothing further. * --> Per GI, to continue protonix TWICE daily-- medication changed TSH wnl Ascites/Diarrhea Ordered paracentesis for large amount of ascites on prior imaging Radiology able to remove 5.3L ascitic fluid. Labs ordered for analysis but doesn't examine like SBP --> Albumin 25gm IV x3 doses ordered Remains on Cipro/Flagyl for diarrhea -- had planned for outpatient c-scope w/ recent GI bleed Stool studies pending ?cdiff given PPI use, diarrhea. again, stool studies ordered GI consulted given ascites/management of cirrhosis, recent GI bleeding (denies further bleeding upon asking) -- follows with [facility] per patient. CM alerted to help w/ outpt f/u PT/OT consulted given weakness (2) End stage liver disease: Plan: pts MELD score has been calculated to 22, this is improved but still has 19% mortality TB decreased 1.8-->14, ALP elevation. INR stable 1.4 (prior 1.6) Plt low at 32, no bleeding reported. Consider platelets if lower on repeat in Am Paracentesis AM 10/01 for 5.3L serous ascites aspirated per note -- GS/Cx/albumin/etc pending Albumin 25gm IV x 3 doses given paracentesis Home meds continued including lasix 20mg daily as noted, Spironolactone discontinued at discharge. Remains on PO supplementation for hypokalemia on admission Continue LOW SALT diet, and eventual referral to Liver specialist at [facility] --> patient states follows w/ [facility] presby. CM following, nurse navigator to assist closer to d/c (3) Diarrhea: Plan: Patient's had months worth of diarrhea according to the patient. He has proctocolitis seen on his imaging. He was treated with Rocephin during his last hospital stay for consideration of SBP prophylaxis but appears received 6 days IV rocephin, GI notes w/ EGD do rec 7 day course Ordered stool studies -- had BM this morning while getting labs and unable to collect Orders in for collection once able Continues on Cipro/Flagyl IV but does not appear to examine as acute abdomen/peritonitis at this time If he develops systemic concerns for infection blood and urine cultures will also be obtained (4) CKD (chronic kidney disease): Plan: Stage 3 Last admit, Cr up to 3.35 on admit, currently 2.51 Had spironolactone discontinued last admission Improvement on lasix continued, monitor BMP Renal dose meds/avoid nephrotoxins as able Nephrology consulted to assist with diuretic management in patient w/ ci rrhosis/CKD as well as bicarb 16 on labs (presumed from diarrheal losses) Monitor K closely w/ replacement -- up to 4.2, then 3.6 on AM labs (5) Anemia: Plan: HGb is 10.7 on admit, 9.5 on repeat this morning suspect some dilutional given large volulme ascites/discontinuation of spironolactone at discharge last admission this month Check iron studies/B12/folate with next lab draw/replacement as needed especially given prior hx alcohol use (6) Hypomagnesemia: Plan: as above, monitor on repeat/additional replacement as needed (7) Metabolic acidosis: Plan: 2nd to diarrheal losses GI/Nephrology on consult Admission and Anticipated Discharge Date Admission Date: September 30, 2022 Subjective Eval this afternoon Had paracentesis for 5.3L urine colored fluid per payroll technician -- labs pending for analysis states hospitalized for weakness, PT/OT consults discussed and ordered follows with [facility] Naty for his liver,. discussed giving albumin given large volume paracentesis but that spironolactone likely helpful for reaccumulation of fluid at d/c unless having issues with symptomatic hypotension. Also discussed PPI use -- states he had only been taking once a day at home. Discussed recs for increased to BID dosing. Stool studies yet to be obtained, had episode of diarrhea this morning but that was having labs drawn and unable to collect at that time. No chest pain/shortness of breath. Does endorse feeling less abdominal fullness. When asked where he was, patient replied "in [place]". Questions/concerns addressed, wanting to sleep currently. Review of Systems Review of Systems: All systems reviewed & are unremarkable except as noted in HPI & below Physical Exam Physical Exam: General: chronincall ill appearing male sitting up in bed, no acute distress HEENT: head normocephalic, pupils equal and reactive, mm slightly dry, trachea midline Resp: CTAB, diminished in the bases, on room air CV: RRR, (rates 70-80s on telemetry), no m/r/g, no pitting edema GI: +BS, less distension (reported), soft, nontender : no wallace MSK/Neuro: moves all extremities, no focal deficits, no facial droop Skin: chronic venous stasis changes b/l LE, otherwise without rashes Results & Data Results & Data ([facility]) Vital Signs (Past 12 Hours) Vital Signs Temp Pulse Pulse Resp BP BP Pulse Ox 10/01/22 06:10 106 H 10/01/22 04:49 36.6 C 100 H 18 105/68 97 09/30/22 22:00 36 C L 106 H 18 118/80 99 10/01/22 00:42 120 H O2 Del Method 10/01/22 06:10 10/01/22 04:49 Room Air 09/30/22 22:00 Room Air 10/01/22 00:42 Laboratory Results 10/01/22 10/01/22 10/01/22 Range/Units 06:15 06:15 06:15 WBC 6.58 (4.8-10.8) K/ul RBC 3.20 L (4.63-6.08) M/uL Hgb 9.5 L (14.0-18.0) g/dl Hct 27.0 L (40.1-51.0) % MCV 84.4 (80.0-100.0) fL MCH 29.7 (25.0-34.0) pg MCHC 35.2 (32.0-36.0) g/dL RDW Std Deviation 56.3 H (36.4-46.3) fL RDW Coeff of Suzanne 20.2 H (11.5-14.5) % Plt Count 32 L (130-400) K/uL MPV 10.7 (9.4-12.4) fL Immature Gran % (Auto) % Neut % (Auto) % Lymph % (Auto) % Pierce % (Auto) % Eos % (Auto) % Baso % (Auto) % Neut # (Auto) (1.4-6.5) K/uL Lymph # (Auto) (1.2-3.4) K/uL Pierce # (Auto) (0.24-0.82) K/uL Eos # (Auto) (0-0.50) K/uL Baso # (Auto) (0-0.2) K/uL Immature Gran # (Auto) (0.00-0.02) K/uL Absolute Nucleated RBC (0-0) K/uL Nucleated RBC % (auto) % Anisocytosis Echinocytes PT 15.1 H (9.0-12.0) Seconds INR 1.4 H (0.9-1.1) APTT (21.0-31.0) Seconds PTT Ratio Sodium 135 L (136-145) mmol/L Potassium 3.6 (3.5-5.1) mmol/L Chloride 111 H (98-107) mmol/L Carbon Dioxide 16 L (21-32) mmol/L Anion Gap 8 (3-11) BUN 30 H (6-23) mg/dl Creatinine 2.51 H (0.6-1.4) mg/dl Est Cr Clr Drug Dosing 34.8 ml/min Est GFR ( Amer) 31.2 ml/min Est GFR (Non-Af Amer) 27.0 ml/min BUN/Creatinine Ratio 12.0 (10-20) Glucose 118 H (70-99(Fasting)) mg/dl POC Glucose (70-99) mg/dl Calcium 8.0 L (8.5-10.1) mg/dl Magnesium 1.3 L (1.7-2.4) mg/dl Total Bilirubin 1.4 H (0.2-1.0) mg/dl AST 35 (13-39) U/L ALT 38 (7-52) U/L Alkaline Phosphatase 171 H (34-104) U/L Troponin I High Sens (0-20) pg/ml Total Protein 5.5 L (6.0-8.3) gm/dl Albumin 2.7 L (3.4-5.0) gm/dl Globulin 2.8 (2.5-4.0) gm/dl Albumin/Globulin Ratio 1.0 (0.9-2) SARS-CoV-2, RNA, NAAT (NEGATIVE) 09/30/22 09/30/22 09/30/22 Range/Units 16:28 15:21 15:01 WBC (4.8-10.8) K/ul RBC (4.63-6.08) M/uL Hgb (14.0-18.0) g/dl Hct (40.1-51.0) % MCV (80.0-100.0) fL MCH (25.0-34.0) pg MCHC (32.0-36.0) g/dL RDW Std Deviation (36.4-46.3) fL RDW Coeff of Suzanne (11.5-14.5) % Plt Count (130-400) K/uL MPV (9.4-12.4) fL Immature Gran % (Auto) % Neut % (Auto) % Lymph % (Auto) % Pierce % (Auto) % Eos % (Auto) % Baso % (Auto) % Neut # (Auto) (1.4-6.5) K/uL Lymph # (Auto) (1.2-3.4) K/uL Pierce # (Auto) (0.24-0.82) K/uL Eos # (Auto) (0-0.50) K/uL Baso # (Auto) (0-0.2) K/uL Immature Gran # (Auto) (0.00-0.02) K/uL Absolute Nucleated RBC (0-0) K/uL Nucleated RBC % (auto) % Anisocytosis Echinocytes PT (9.0-12.0) Seconds INR (0.9-1.1) APTT (21.0-31.0) Seconds PTT Ratio Sodium (136-145) mmol/L Potassium 4.2 D (3.5-5.1) mmol/L Chloride (98-107) mmol/L Carbon Dioxide (21-32) mmol/L Anion Gap (3-11) BUN (6-23) mg/dl Creatinine (0.6-1.4) mg/dl Est Cr Clr Drug Dosing ml/min Est GFR ( Amer) ml/min Est GFR (Non-Af Amer) ml/min BUN/Creatinine Ratio (10-20) Glucose (70-99(Fasting)) mg/dl POC Glucose 134 H 138 H (70-99) mg/dl Calcium (8.5-10.1) mg/dl Magnesium (1.7-2.4) mg/dl Total Bilirubin (0.2-1.0) mg/dl AST (13-39) U/L ALT (7-52) U/L Alkaline Phosphatase (34-104) U/L Troponin I High Sens (0-20) pg/ml Total Protein (6.0-8.3) gm/dl Albumin (3.4-5.0) gm/dl Globulin (2.5-4.0) gm/dl Albumin/Globulin Ratio (0.9-2) SARS-CoV-2, RNA, NAAT (NEGATIVE) 09/30/22 09/30/22 09/30/22 Range/Units 12:19 09:10 09:10 WBC (4.8-10.8) K/ul RBC (4.63-6.08) M/uL Hgb (14.0-18.0) g/dl Hct (40.1-51.0) % MCV (80.0-100.0) fL MCH (25.0-34.0) pg MCHC (32.0-36.0) g/dL RDW Std Deviation (36.4-46.3) fL RDW Coeff of Suzanne (11.5-14.5) % Plt Count (130-400) K/uL MPV (9.4-12.4) fL Immature Gran % (Auto) % Neut % (Auto) % Lymph % (Auto) % Pierce % (Auto) % Eos % (Auto) % Baso % (Auto) % Neut # (Auto) (1.4-6.5) K/uL Lymph # (Auto) (1.2-3.4) K/uL Pierce # (Auto) (0.24-0.82) K/uL Eos # (Auto) (0-0.50) K/uL Baso # (Auto) (0-0.2) K/uL Immature Gran # (Auto) (0.00-0.02) K/uL Absolute Nucleated RBC (0-0) K/uL Nucleated RBC % (auto) % Anisocytosis Echinocytes PT 15.0 H (9.0-12.0) Seconds INR 1.4 H (0.9-1.1) APTT 43.4 H (21.0-31.0) Seconds PTT Ratio 1.6 Sodium 140 (136-145) mmol/L Potassium 2.9 L (3.5-5.1) mmol/L Chloride 110 H (98-107) mmol/L Carbon Dioxide 16 L (21-32) mmol/L Anion Gap 14 H (3-11) BUN 30 H (6-23) mg/dl Creatinine 2.72 H (0.6-1.4) mg/dl Est Cr Clr Drug Dosing 31.6 ml/min Est GFR ( Amer) 28.4 ml/min Est GFR (Non-Af Amer) 24.5 ml/min BUN/Creatinine Ratio 11.0 (10-20) Glucose 177 H (70-99(Fasting)) mg/dl POC Glucose (70-99) mg/dl Calcium 8.5 (8.5-10.1) mg/dl Magnesium 1.1 L (1.7-2.4) mg/dl Total Bilirubin 1.8 H (0.2-1.0) mg/dl AST 34 (13-39) U/L ALT 42 (7-52) U/L Alkaline Phosphatase 169 H (34-104) U/L Troponin I High Sens 19.6 (0-20) pg/ml Total Protein 6.3 (6.0-8.3) gm/dl Albumin 3.0 L (3.4-5.0) gm/dl Globulin 3.3 (2.5-4.0) gm/dl Albumin/Globulin Ratio 0.9 (0.9-2) SARS-CoV-2, RNA, NAAT NEGATIVE (NEGATIVE) 09/30/22 Range/Units 09:10 WBC 8.77 (4.8-10.8) K/ul RBC 3.59 L (4.63-6.08) M/uL Hgb 10.7 L (14.0-18.0) g/dl Hct 30.8 L (40.1-51.0) % MCV 85.8 (80.0-100.0) fL MCH 29.8 (25.0-34.0) pg MCHC 34.7 (32.0-36.0) g/dL RDW Std Deviation 59.8 H (36.4-46.3) fL RDW Coeff of Suzanne 20.7 H (11.5-14.5) % Plt Count 49 L (130-400) K/uL MPV 11.2 (9.4-12.4) fL Immature Gran % (Auto) 0.6 % Neut % (Auto) 74.0 % Lymph % (Auto) 12.0 % Pierce % (Auto) 11.2 % Eos % (Auto) 1.3 % Baso % (Auto) 0.9 % Neut # (Auto) 6.50 (1.4-6.5) K/uL Lymph # (Auto) 1.05 L (1.2-3.4) K/uL Pierce # (Auto) 0.98 H (0.24-0.82) K/uL Eos # (Auto) 0.11 (0-0.50) K/uL Baso # (Auto) 0.08 (0-0.2) K/uL Immature Gran # (Auto) 0.05 H (0.00-0.02) K/uL Absolute Nucleated RBC 0.02 H (0-0) K/uL Nucleated RBC % (auto) 0.2 % Anisocytosis Present Echinocytes 1+ PT (9.0-12.0) Seconds INR (0.9-1.1) APTT (21.0-31.0) Seconds PTT Ratio Sodium (136-145) mmol/L Potassium (3.5-5.1) mmol/L Chloride (98-107) mmol/L Carbon Dioxide (21-32) mmol/L Anion Gap (3-11) BUN (6-23) mg/dl Creatinine (0.6-1.4) mg/dl Est Cr Clr Drug Dosing ml/min Est GFR ( Amer) ml/min Est GFR (Non-Af Amer) ml/min BUN/Creatinine Ratio (10-20) Glucose (70-99(Fasting)) mg/dl POC Glucose (70-99) mg/dl Calcium (8.5-10.1) mg/dl Magnesium (1.7-2.4) mg/dl Total Bilirubin (0.2-1.0) mg/dl AST (13-39) U/L ALT (7-52) U/L Alkaline Phosphatase (34-104) U/L Troponin I High Sens (0-20) pg/ml Total Protein (6.0-8.3) gm/dl Albumin (3.4-5.0) gm/dl Globulin (2.5-4.0) gm/dl Albumin/Globulin Ratio (0.9-2) SARS-CoV-2, RNA, NAAT (NEGATIVE) Diagnostic Findings Paracentesis Ultrasound 10/01/22 09:33 PROCEDURE: Ultrasound-Guided Diagnostic/Therapeutic Paracentesis CLINICAL HISTORY: eval volume ascites, ?need for paracentesis MEDICATIONS: Subcutaneous Lidocaine 2%. PROCEDURE: The procedure itself was explained to the patient carefully. The patient was brought into the IR suite and a time-out was performed. The patient was positioned supine on the table. Preliminary ultrasound of the abdomen was performed to determine a safe needle entry site. The most appropriate approach for safe needle entry site was planned and the site for puncture was marked. The right lower quadrant was prepped and draped in the usual sterile fashion. Subcutaneous 2% lidocaine was used for local anesthesia along the expected needle tract. Under ultrasound-guidance, an 5 Kyr[place] Yueh needle-sheath was inserted carefully into the peritoneal space towards the abdominal ascites fluid collection. The needle was removed and the sheath was connected to tubing and a vacuum suction device. A total of 5300 cc of serous ascites was aspirated. The sheath was removed and a sterile dressing applied. The patient tolerated the procedure well without immediate complications. Sample of ascites was sent for analysis. IMPRESSION: Ultrasound-guided diagnostic/therapeutic paracentesis. Electronically signed by: Miguel Moise M.D. 10/01/2022 12:20 PM PG Care Time/CCT Total # of Minutes Spent Total Time Spent with Patient: Total time spent is greater than 50% in coordination of care (as documented) at patient's floor/unit and/or counseling patient: Coding Level of Care Code 96909 Subseq Hosp Care Lvl 3 Diagnoses Hypokalemia E87.6 End stage liver disease K72.10 Diarrhea R19.7 CKD (chronic kidney disease) N18.9 Chronic kidney disease stage: unspecified stage Anemia D64.9 Anemia type: unspecified type Hypomagnesemia E83.42 Metabolic acidosis E87.20 (1) Anemia Anemia type: unspecified type Qualified Code(s): D64.9 - Anemia, unspecified (2) CKD (chronic kidney disease) Chronic kidney disease stage: unspecified stage Qualified Code(s): N18.9 - Chronic kidney disease, unspecified
[2022-10-01] MEDS: metroNIDAZOLE 500 MG/100 ML BAG IV SCH ×2 (07:58→15:34)
[2022-10-01] MEDS: PSYLLIUM or GUAR GUM FIBER POWDER PACKET PO SCH (08:03)
[2022-10-01] MEDS: busPIRone 5 MG TAB PO SCH ×2 (08:03→20:43)
[2022-10-01] MEDS: TOPIRAMATE 100 MG TAB PO SCH ×2 (08:03→20:42)
[2022-10-01] MEDS: CYANOCOBALAMIN (B-12) 500 MCG TABLET PO SCH (08:03)
[2022-10-01] MEDS: DULoxetine HCL 30 MG CAP PO SCH ×2 (08:03→20:43)
[2022-10-01] MEDS: FUROSEMIDE 20 MG TAB PO SCH (08:03)
[2022-10-01] MEDS: allopurinoL 100 MG TAB PO SCH (08:04)
[2022-10-01] MEDS: LURASIDONE HCL 40 MG TAB PO SCH (08:04)
[2022-10-01] MEDS: ASCORBIC ACID 500 MG TAB PO SCH (08:05)
[2022-10-01] MEDS: METOPROLOL SUCC 50MG EXT REL TAB PO SCH (08:11)
[2022-10-01] MEDS: PREGABALIN 150 MG CAP PO SCH ×2 (08:17→20:42)
[2022-10-01] MEDS: MAGNESIUM SULFATE / D5W 1 GM/100 ML BAG IV SCH ×3 (08:18→13:10)
[2022-10-01] MEDS: POTASSIUM CHLORIDE CRTAB 20 MEQ TABCR PO SCH ×2 (08:18→20:45)
[2022-10-01] MEDS ORDERED: PANTOprazole 40 MG TAB PO SCH (09:00)
--- NOTE | 2022-10-01 12:22 | Ultrasound Report ---
PROCEDURE: Ultrasound-Guided Diagnostic/Therapeutic Paracentesis CLINICAL HISTORY: eval volume ascites, ?need for paracentesis MEDICATIONS: Subcutaneous Lidocaine 2%. PROCEDURE: The procedure itself was explained to the patient carefully. The patient was brought into the IR suite and a time-out was performed. The patient was positioned supine on the table. Preliminar y ultrasound of the abdomen was performed to determine a safe needle entry site. The most appropriat e approach for safe needle entry site was planned and the site for puncture was marked. The right low er quadrant was prepped and draped in the usual sterile fashion. Subcutaneous 2% lidocaine was used f or local anesthesia along the expected needle tract. Under ultrasound-guidance, an 5 Vietnamese Jia.comeh needle-sheath was inserted carefully into the peritoneal space towards the abdominal ascites fluid collection. The needle was removed and the sheath was conn ected to tubing and a vacuum suction device. A total of 5300 cc of serous ascites was aspirated. The sheath was removed and a sterile dressing applied. The patient tolerated the procedure well without i mmediate complications. Sample of ascites was sent for analysis. IMPRESSION: Ultrasound-guided diagnostic/therapeutic paracentesis. Electronically signed by: Miguel Moise M.D. 10/01/2022 12:20 PM
--- NOTE | 2022-10-01 13:04 | Gastrointestinal Consultation ---
Date of Consultation October 01, 2022 Assessment & Plan (1) Cirrhosis: Await Ascitic fluid study results Would recommend Replacement with Albumin 25 g IV x 1 now Recommended abstinence from all alcohol as it is a known liver toxin Recommend Nephrology consult due to CKD and need for Aldactone/Lasix therapy Will need f/u in our office for chronic disease management upon discharge Dr. Rose of [facility] will be covering over the weekend if needed. (2) Anemia: No overt GI bleeding at present, in fact, he states he has not had a BM in 2 days Recommend obtaining records from [facility] regarding his most recent colonoscopy Continue Protonix 40 mg by twice daily (3) Diarrhea: Await stool studies History of Present Illness Reason for Consultation: Cirrhosis, Diarrhea, Recent GI bleed Attending Physician: Gurmeet Massey MD History of Present Illness Darius Carter is a 61 yo CM with a significant PMHx of Cirrhosis, Portal hypertension and esophageal varices, who was recently discharged from [facility] on 09/23/2022, who presented to the ER secondary to diarrhea and general malaise. Upon arrival to the ER he was noted to be anemic with an H/H of 10.7/30.8. He was also noted to have an REGINALD and was noted to have hypokalemia and hypomagnesemia. He underwent a CT scan of the abd/pelvis and was noted to have proctocolitis as well as prominent ascites. This had been seen on his prior admission, however, he was unable to tolerate the bowel prep for a colonoscopy. Of note, the patient did state that he had a colonoscopy earlier this year (in August) at [facility], however, I do not have these records. While hospitalized earlier this month, Dr. Lafleur did perform an EGD which showed Grade I esophageal varices, but no other significant findings. He was subsequently admitted, had treatment of his electrolyte abnormalities and underwent a paracentesis with removal of 5.3 L of fluid. At the time I saw the patient, he complained of generlized fatigue. He states that he does feel slightly improved following his paracentesis. He denies any fevers, chills, nausea, vomiting, h ematemesis, melena, hematochezia, or other complaints. Allergies Allergy/AdvReac Type Severity Reaction Status Date / Time INHALED ANTIHISTAMINES Allergy Severe THROAT Uncoded 09/20/22 08:35 SWELLS SHUT Home Medications Medication Instructions Recorded Confirmed Type allopurinol 100 mg tablet 100 mg PO DAILY 09/17/22 09/17/22 History ascorbic acid (vitamin C) 500 mg 500 mg PO DAILY 09/17/22 09/17/22 History tablet (Vitamin C) buspirone 5 mg tablet 5 mg PO BID 09/17/22 09/17/22 History cyanocobalamin (vitamin B-12) 500 mcg sublingual DAILY 09/17/22 09/17/22 History 1,000 mcg sublingual tablet diazepam 10 mg tablet 10 mg PO BID PRN Anxiety 09/17/22 09/17/22 History diphenoxylate-atropine 2.5 1 tab PO QID PRN Diarrhea 09/17/22 09/17/22 History mg-0.025 mg tablet duloxetine 30 mg capsule,delayed 30 mg PO BID 09/17/22 09/17/22 History release furosemide 20 mg tablet (Lasix) 20 mg PO DAILY 09/17/22 09/17/22 History lurasidone 60 mg tablet (Latuda) 60 mg PO DAILY 09/17/22 09/17/22 History metformin 1,000 mg tablet 1,000 mg PO BIDM 09/17/22 09/17/22 History metoprolol succinate 100 mg 100 mg PO DAILY 09/17/22 09/17/22 History tablet,extended release 24 hr pantoprazole 40 mg tablet,delayed 40 mg PO DAILY 09/17/22 09/17/22 History release pregabalin 300 mg capsule 300 mg PO BID 09/17/22 09/17/22 History tamsulosin 0.4 mg capsule 0.4 mg PO HS 09/17/22 09/17/22 History topiramate 100 mg tablet 100 mg PO BID 09/17/22 09/17/22 History PSYLLIUM or GUAR GUM FIBER SUP 1 pkg PO QAM #30 packets 09/23/22 Rx [METAMUCIL or NUTRISOURCE FIBER SUPPLEMENT] Patient History Medical History Anemia Cirrhosis CKD (chronic kidney disease) End stage liver disease Leukocytosis LGI bleed Surgical History H/O rectal polypectomy History of colonoscopy Social History Smoking Status: Current every day smoker Cigarettes Per Day: 1 pack q 2 weeks; Second Hand Exposure: Yes; Hx Alcohol Use: No Hx Substance Use: No Preferred Language: Belarusian Communication Ability: Effective Growth Hacker Required: No Beliefs That Will Affect Care: None marital status: Single Current Living Situation: Spouse Current Living Situation Comment: lives with aranza [place] Feels Safe at Home: Yes Assistive Devices: Cane Review of Systems Review of Systems: All systems reviewed & are unremarkable except as noted in Subjective Physical Exam Constitutional: + ill appearing (chronic); no acute distress Eyes: + anicteric sclerae ENMT: external ear and nose normal, oropharynx normal Neck: normal visual inspection Respiratory: normal respiratory effort, lungs clear to auscultation Cardiovascular: RRR, no murmur, no edema Gastrointestinal (Abdomen): Inspection/Auscultation: abdomen normal to i nspection, + abdomen distended and normal bowel sounds Percussion/Palpation: abdomen soft and + hepatomegaly; abdomen nontender Skin: no rashes, warm and dry Psychiatric: A+Ox3, euthymic affect Results & Data ([facility]) Vital Signs (Past 12 Hours) Vital Signs Temp Pulse Pulse Resp BP Pulse Ox O2 Del Method 10/01/22 09:38 Room Air 10/01/22 08:10 36.4 C L 104 H 19 105/70 98 Room Air 10/01/22 06:10 106 H 10/01/22 04:49 36.6 C 100 H 18 105/68 97 Room Air PG Care Time/CCT Total # of Minutes Spent Total Time Spent with Patient: Total time spent is greater than 50% in coordination of care (as documented) at patient's floor/unit and/or counseling patient: Coding Level of Care Code 53061 Inpt Consult Level 4 Diagnoses Cirrhosis K74.60 Anemia D64.9 Anemia type: unspecified type Diarrhea R19.7 (1) Anemia Anemia type: unspecified type Qualified Code(s): D64.9 - Anemia, unspecified
[2022-10-01 13:31] LABS: Albumin Peritoneal Fluid < 1.5 gm/dl; Total Protein Peritoneal Fluid < 3.0 gm/dl
[2022-10-01 13:59] LABS: Appearance Peritoneal Fluid Clear; Color Peritoneal Fluid Pale Yellow; Lymphocytes, Fluid 10 %; Mono,Macrophage,Mesothelial 59 %; Neutrophils, Fluid 31 %; RBC Peritoneal Fluid Auto < 2000 /uL; WBC Peritoneal Fluid Auto 93 /ul (0-300)
--- NOTE | 2022-10-01 14:26 | Nephrology Consultation ---
Date of Consultation October 01, 2022 Assessment & Plan (1) Chronic kidney disease, stage 4 (severe): (2) Metabolic acidosis: (3) Hypomagnesemia: (4) Hypokalemia: (5) End stage liver disease: (6) Anemia: Plan 61-year-old gentlemen with end-stage liver disease with meld score of 21 admitted to the hospital with worsening ascites needing for paracentesis. Renal function has been abnormal with an episode of AK I recently at during hospitalization early September when creatinine peaked to 3.4 than on discharge improved to 2.2. On admission yesterday again creatinine noted to be elevated at 2.7 which slightly improved to 2.5 this morning. No urinalysis available. Prior renal imaging otherwise unremarkable. Unclear baseline renal function as no prior records available. It is also not clear whether abnormal renal function secondary to hepatorenal syndrome or underlying advanced CKD with multiple risk factors including diabetes, smoking and end-stage liver disease. --will check urinalysis for any evidence of hematuria or proteinuria. It would be helpful to get some prior records from either [facility] or his PCP to have idea about baseline renal function however it is quite possible that kidney function has been this low for the time being. Overall prognosis seems quite poor for underlying cirrhosis with meld score 21 indicating 3 months mortality about 20%, unless patient is a of candidate for liver transplant Will follow. Thank you for the consult. It was a pleasure to see Mr. Carter. History of Present Illness Reason for Consultation: Stage 3B/4 CKD Attending Physician: Gurmeet Massey MD History of Present Illness Mr. Darius Carter is a 61-year-old male With past medical history significant for cirrhosis, portal hypertension, esophageal varices and abdominal ascites requiring frequent paracentesis admitted to the hospital with abdominal distention, pain and discomfort and need for paracentesis. Nephrology consult was requested to manage advanced CKD with cirrhosis. EMR records were reviewed in details during visit. Darius presented to ER with nausea, abdominal pain and progressive distention for the last 2 days. Was recently admitted to the hospital from 09/17/2022 to 09/23/2022 when he was noted to have REGINALD, creatinine was 3.4 but on discharge improved to 2.2. No prior records available before October 2022. No urinalysis available. has his abdominal distension progressed he called his PCP who advised him to go to [facility] According to the patient there was nothing done at there so he called his physician at [place] who advised him to come to [facility] so that he can be transferred to [place]. On admission yesterday was again noted to have REGINALD with creatinine 2.7 which slightly improved to 2.5 this morning. Other electrolytes including sodium and potassium use normal but bicarbonate was low at 16. calcium was normal but had low magnesium 1.3 and albumin 2.7. Also has anemic with Hb 10.7. He was found to have significant abdominal distension and had paracentesis today with 5.3 L of fluid removal. Currently he is getting albumin infusion. CT abdomen pelvis showed proctocolitis some prominent ascites but no postrenal obstruction. Recently he had EGD done showing Grade I esophageal varices, but no other significant findings. Has history of hepatic cirrhosis diagnosed at least 5 years ago, follows with [facility] now with multiple complication including ascites, portal hypertension very cell bleeding. Unclear duration of CKD, records available from November showed creatinine has been variable from 2.5-3.0. No urinalysis available. Renal imaging was negative for postrenal obstruction. History of diabetes for more than 10 years without retinopathy. History of heavy alcohol drinking from age 17 but he reports stopping drinking many years ago. Smokes 1 pack per day. No family history of CKD or ESRD. He is retired, used to work at [employer], lives with significant other. Currently he seems somewhat sleepy but easily arousable and answered all question appropriately and gave detailed history. Allergies Allergy/AdvReac Type Severity Reaction Status Date / Time INHALED ANTIHISTAMINES Allergy Severe THROAT Uncoded 09/20/22 08:35 SWELLS SHUT Home Medications Medication Instructions Recorded Confirmed Type allopurinol 100 mg tablet 100 mg PO DAILY 09/17/22 09/17/22 History ascorbic acid (vitamin C) 500 mg 500 mg PO DAILY 09/17/22 09/17/22 History tablet (Vitamin C) buspirone 5 mg tablet 5 mg PO BID 09/17/22 09/17/22 History cyanocobalamin (vitamin B-12) 500 mcg sublingual DAILY 09/17/22 09/17/22 History 1,000 mcg sublingual tablet diazepam 10 mg tablet 10 mg PO BID PRN Anxiety 09/17/22 09/17/22 History diphenoxylate-atropine 2.5 1 tab PO QID PRN Diarrhea 09/17/22 09/17/22 History mg-0.025 mg tablet duloxetine 30 mg capsule,delayed 30 mg PO BID 09/17/22 09/17/22 History release furosemide 20 mg tablet (Lasix) 20 mg PO DAILY 09/17/22 09/17/22 History lurasidone 60 mg tablet (Latuda) 60 mg PO DAILY 09/17/22 09/17/22 History metformin 1,000 mg tablet 1,000 mg PO BIDM 09/17/22 09/17/22 History metoprolol succinate 100 mg 100 mg PO DAILY 09/17/22 09/17/22 History tablet,extended release 24 hr pantoprazole 40 mg tablet,delayed 40 mg PO DAILY 09/17/22 09/17/22 History release pregabalin 300 mg capsule 300 mg PO BID 09/17/22 09/17/22 History tamsulosin 0.4 mg capsule 0.4 mg PO HS 09/17/22 09/17/22 History topiramate 100 mg tablet 100 mg PO BID 09/17/22 09/17/22 History PSYLLIUM or GUAR GUM FIBER SUP 1 pkg PO QAM #30 packets 09/23/22 Rx [METAMUCIL or NUTRISOURCE FIBER SUPPLEMENT] Patient History Medical History (Updated 10/01/22 @ 16:24 by Laine Robles MD) Anemia Chronic kidney disease, stage 4 (severe) Cirrhosis CKD (chronic kidney disease) End stage liver disease Leukocytosis LGI bleed Surgical History H/O rectal polypectomy History of colonoscopy Social History Smoking Status: Current every day smoker Cigarettes Per Day: 1 pack q 2 weeks; Second Hand Exposure: Yes; Hx Alcohol Use: No Hx Substance Use: No Preferred Language: Guyanese Communication Ability: Effective Machine Printer Hose Required: No Beliefs That Will Affect Care: None marital status: Life Partner Current Living Situation: Spouse Current Living Situation Comment: lives with aranza [place] Feels Safe at Home: Yes Assistive Devices: Cane and Walker Review of Systems Review of Systems: Detailed review of system was otherwise unremarkable except mentioned above in HPI. Physical Exam Constitutional: WD/WN, vitals as above + ill appearing, + cachectic and + frail appearing; no acute distress Eyes: + anicteric sclerae ENMT: Ears: no hearing impairment Neck: normal visual inspection Thyroid: no thyromegaly Respiratory: Auscultation: lungs clear to auscultation bilaterally Cardiovascular: RRR, no murmur, no edema Gastrointestinal (Abdomen): Percussion/Palpation: abdomen soft; abdomen nontender Musculoskeletal: Extremities: extremities normal to inspection Skin: no rashes Neurologic: no focal motor deficits Psychiatric: Orientation: alert and oriented x 3 Affect: euthymic affect Results & Data ([facility]) Vital Signs (Past 12 Hours) Vital Signs Temp Pulse Pulse Resp BP Pulse Ox O2 Del Method 10/01/22 09:38 Room Air 10/01/22 08:10 36.4 C L 104 H 19 105/70 98 Room Air 10/01/22 06:10 106 H 10/01/22 04:49 36.6 C 100 H 18 105/68 97 Room Air PG Care Time/CCT Total # of Minutes Spent Total Time Spent with Patient: Total time spent is greater than 50% in coordination of care (as documented) at patient's floor/unit and/or counseling patient: Coding Level of Care Code 24854 Inpt Consult Level 5 Diagnoses Chronic kidney disease, stage 4 (severe) N18.4 Metabolic acidosis E87.20 Hypomagnesemia E83.42 Hypokalemia E87.6 End stage liver disease K72.10 Anemia D64.9 Anemia type: unspecified type (1) Anemia Anemia type: unspecified type Qualified Code(s): D64.9 - Anemia, unspecified
[2022-10-01] MEDS: ALBUMIN 25% 12.5 GM/50 ML VIAL IV SCH ×3 (14:34→16:29)
[2022-10-01 16:42] LABS: BUN Creatinine Ratio 10.8 (10-20); Calcium 7.9 mg/dl (8.5-10.1); Creatinine Clr Calc Pharmacy 33.7 ml/min; Est GFR (African American) 30.1 ml/min; Potassium 3.5 mmol/L (3.5-5.1)
[2022-10-01 16:57] LABS: Iron 87 mcg/dl (35-175); Unsaturated Iron Binding Cap < 55 mcg/dl (155-355)
[2022-10-01 17:00] LABS: Ferritin 283.3 ng/ml (8-388)
[2022-10-01 17:07] LABS: Vitamin B12 > 1500 pg/ml (180-914)
[2022-10-01 17:30] LABS: Appearance Urine Clear (Clear); Bilirubin Urine Negative (Negative); Blood Urine Negative (Negative); Color Urine Yellow; Glucose Urine UA Negative (Negative); Ketones Urine Negative (Negative); Leukocyte Esterase Urine Negative (Negative); Nitrite Urine Negative (Negative); Protein Urine Negative (Negative); Urobilinogen Urine Negative (Negative)
[2022-10-01 17:48] LABS: Creatinine Urine Random 59.6 mg/dl; Protein Creatinine Ratio Urine 0.4 (0-0.2)
[2022-10-01] MEDS ORDERED: ALBUMIN 25% 12.5 GM/50 ML VIAL IV ONE (20:04)
[2022-10-01] MEDS: TAMSULOSIN HCL 0.4 MG CAP PO SCH (20:43)
[2022-10-01] MEDS: PANTOprazole 40 MG TAB PO SCH (20:43)
[2022-10-02] MEDS: metroNIDAZOLE 500 MG/100 ML BAG IV SCH ×2 (00:06→07:51)
[2022-10-02] MEDS: ALBUMIN 25% 100 mL 25 GM/100 ML VIAL IV SCH ×2 (00:06→01:49)
[2022-10-02] MEDS ORDERED: LACTATED RINGER'S 500 ML IV ONE ×2 (04:09→05:13)
[2022-10-02] MEDS: CIPROFLOXACIN / D5W 400 MG/200 ML BAG IV SCH (04:21)
[2022-10-02 07:03] LABS: Hematocrit (blood only) 22.7 % (40.1-51.0); Mean Corpuscular Hemoglobin 30.2 pg (25.0-34.0); Mean Corpuscular Hgb Conc 35.2 g/dL (32.0-36.0); Mean Corpuscular Volume 85.7 fL (80.0-100.0); Mean Platelet Volume 12.2 fL (9.4-12.4); Platelet Count 32 K/uL (130-400); RDW Coefficient of Variation 20.5 % (11.5-14.5); RDW Standard Deviation 57.1 fL (36.4-46.3); Red Blood Count 2.65 M/uL (4.63-6.08)
[2022-10-02 07:12] LABS: Albumin Globulin Ratio 1.6 (0.9-2); Albumin Level 3.4 gm/dl (3.4-5.0); BUN Creatinine Ratio 11.1 (10-20); Calcium 8.1 mg/dl (8.5-10.1); Creatinine Clr Calc Pharmacy 34.4 ml/min; Est GFR (African American) 31.1 ml/min; Est GFR (Non-African American) 26.8 ml/min; Globulin 2.1 gm/dl (2.5-4.0); Magnesium 1.9 mg/dl (1.7-2.4); Potassium 3.7 mmol/L (3.5-5.1); Total Protein 5.5 gm/dl (6.0-8.3)
[2022-10-02 07:35] LABS: INR 1.7 (0.9-1.1); Prothrombin Time 17.3 Seconds (9.0-12.0)
[2022-10-02] MEDS: LURASIDONE HCL 40 MG TAB PO SCH (07:49)
[2022-10-02] MEDS: allopurinoL 100 MG TAB PO SCH (07:49)
[2022-10-02] MEDS: ASCORBIC ACID 500 MG TAB PO SCH (07:49)
[2022-10-02] MEDS: CYANOCOBALAMIN (B-12) 500 MCG TABLET PO SCH (07:49)
[2022-10-02] MEDS: TOPIRAMATE 100 MG TAB PO SCH ×2 (07:50→20:08)
[2022-10-02] MEDS: PSYLLIUM or GUAR GUM FIBER POWDER PACKET PO SCH (07:50)
[2022-10-02] MEDS: DULoxetine HCL 30 MG CAP PO SCH ×2 (07:50→20:07)
[2022-10-02] MEDS: PANTOprazole 40 MG TAB PO SCH ×2 (07:50→20:07)
[2022-10-02] MEDS: busPIRone 5 MG TAB PO SCH ×2 (07:50→20:07)
[2022-10-02] MEDS: PREGABALIN 150 MG CAP PO SCH ×2 (07:54→20:07)
--- NOTE | 2022-10-02 08:37 | Gastroenterology Progress Note ---
Date of Service October 02, 2022 Assessment & Plan (1) Anemia: Plan: H/H slowly drifting down but no active bleeding. Has had recent procedures done. Suspect anemia of chronic disease/liver disease (2) End stage liver disease: Plan: Stable for now. Better after paracentesis. Most of management will be done as outpatient when he is in charge of eating/liquid intake so ascites could be better managed Admission and Anticipated Discharge Date Admission Date: September 30, 2022 Subjective Feels much better since paracentesis yesterday. Enjoying breakfast. Complains of "gurgling and coughing". Paracentesis labs consisted with routine ascites related to liver disease, no signs of SBP Review of Systems Review of Systems: All systems reviewed & are unremarkable except as noted in HPI & below Physical Exam Constitutional: WD/WN, vitals as above + thin and cooperative Pleasant Results & Data ([place]) Vital Signs (Past 12 Hours) Vital Signs Temp Pulse Pulse Resp BP BP Pulse Ox 10/02/22 07:47 36.4 C L 75 19 81/58 L 94 10/02/22 05:12 80/53 L 10/02/22 03:30 36.4 C L 81 18 81/44 L 96 10/02/22 00:41 64 10/01/22 23:01 36.4 C L 67 18 86/54 L 97 10/01/22 23:06 O2 Del Method 10/02/22 07:47 Room Air 10/02/22 05:12 10/02/22 03:30 Room Air 10/02/22 00:41 10/01/22 23:01 Room Air 10/01/22 23:06 Room Air Laboratory Results 10/02/22 10/02/22 10/02/22 Range/Units 07:16 05:50 05:50 WBC (4.8-10.8) K/ul RBC (4.63-6.08) M/uL Hgb (14.0-18.0) g/dl Hct (40.1-51.0) % MCV (80.0-100.0) fL MCH (25.0-34.0) pg MCHC (32.0-36.0) g/dL RDW Std Deviation (36.4-46.3) fL RDW Coeff of Suzanne (11.5-14.5) % Plt Count (130-400) K/uL MPV (9.4-12.4) fL PT 17.3 H (9.0-12.0) Seconds INR 1.7 H (0.9-1.1) Sodium 134 L (136-145) mmol/L Potassium 3.7 (3.5-5.1) mmol/L Chloride 108 H (98-107) mmol/L Carbon Dioxide 19 L (21-32) mmol/L Anion Gap 7 (3-11) BUN 28 H (6-23) mg/dl Creatinine 2.52 H (0.6-1.4) mg/dl Est Cr Clr Drug Dosing 34.4 ml/min Est GFR ( Amer) 31.1 ml/min Est GFR (Non-Af Amer) 26.8 ml/min BUN/Creatinine Ratio 11.1 (10-20) Glucose 96 (70-99(Fasting)) mg/dl POC Glucose 133 H (70-99) mg/dl Calcium 8.1 L (8.5-10.1) mg/dl Magnesium 1.9 (1.7-2.4) mg/dl Iron (35-175) mcg/dl TIBC Unsaturated IBC (155-355) mcg/dl Transferrin % Sat Ferritin (8-388) ng/ml Total Bilirubin 2.0 H (0.2-1.0) mg/dl AST 25 (13-39) U/L ALT 27 (7-52) U/L Alkaline Phosphatase 122 H (34-104) U/L Total Protein 5.5 L (6.0-8.3) gm/dl Albumin 3.4 (3.4-5.0) gm/dl Globulin 2.1 L (2.5-4.0) gm/dl Albumin/Globulin Ratio 1.6 (0.9-2) Vitamin B12 (180-914) pg/ml Folate (>5.38) ng/ml TSH (0.300-4.500) uIu/ml Urine Color Urine Appearance (Clear) Urine pH (4.5-7.5) Ur Specific [place] (1.000-1.030) Urine Protein (Negative) Urine Glucose (UA) (Negative) Urine Ketones (Negative) Urine Blood (Negative) Urine Nitrite (Negative) Urine Bilirubin (Negative) Urine Urobilinogen (Negative) Ur Leukocyte Esterase (Negative) Ur Random Creatinine mg/dl U Random Total Protein (0-11.9) mg/dl Protein/Creatinin Ratio (0-0.2) Fluid Neutrophils % % Fluid Lymphocytes % % Fluid Meso/Macro/[place]illon % % Fluid Comment Peritoneal Color Peritoneal Appearance Peritoneal WBC (0-300) /ul Peritoneal RBC /uL Peritoneal Tot Protein gm/dl Peritoneal Albumin gm/dl 10/02/22 10/01/22 10/01/22 Range/Units 05:50 Unknown Unknown WBC 6.80 (4.8-10.8) K/ul RBC 2.65 L (4.63-6.08) M/uL Hgb 8.0 L (14.0-18.0) g/dl Hct 22.7 L (40.1-51.0) % MCV 85.7 (80.0-100.0) fL MCH 30.2 (25.0-34.0) pg MCHC 35.2 (32.0-36.0) g/dL RDW Std Deviation 57.1 H (36.4-46.3) fL RDW Coeff of Suzanne 20.5 H (11.5-14.5) % Plt Count 32 L (130-400) K/uL MPV 12.2 (9.4-12.4) fL PT (9.0-12.0) Seconds INR (0.9-1.1) Sodium (136-145) mmol/L Potassium (3.5-5.1) mmol/L Chloride (98-107) mmol/L Carbon Dioxide (21-32) mmol/L Anion Gap (3-11) BUN (6-23) mg/dl Creatinine (0.6-1.4) mg/dl Est Cr Clr Drug Dosing ml/min Est GFR ( Amer) ml/min Est GFR (Non-Af Amer) ml/min BUN/Creatinine Ratio (10-20) Glucose (70-99(Fasting)) mg/dl POC Glucose (70-99) mg/dl Calcium (8.5-10.1) mg/dl Magnesium (1.7-2.4) mg/dl Iron (35-175) mcg/dl TIBC Unsaturated IBC (155-355) mcg/dl Transferrin % Sat Ferritin (8-388) ng/ml Total Bilirubin (0.2-1.0) mg/dl AST (13-39) U/L ALT (7-52) U/L Alkaline Phosphatase (34-104) U/L Total Protein (6.0-8.3) gm/dl Albumin (3.4-5.0) gm/dl Globulin (2.5-4.0) gm/dl Albumin/Globulin Ratio (0.9-2) Vitamin B12 (180-914) pg/ml Folate (>5.38) ng/ml TSH (0.300-4.500) uIu/ml Urine Color Urine Appearance (Clear) Urine pH (4.5-7.5) Ur Specific [place] (1.000-1.030) Urine Protein (Negative) Urine Glucose (UA) (Negative) Urine Ketones (Negative) Urine Blood (Negative) Urine Nitrite (Negative) Urine Bilirubin (Negative) Urine Urobilinogen (Negative) Ur Leukocyte Esterase (Negative) Ur Random Creatinine mg/dl U Random Total Protein (0-11.9) mg/dl Protein/Creatinin Ratio (0-0.2) Fluid Neutrophils % 31 % Fluid Lymphocytes % 10 % Fluid Meso/Macro/[place] % 59 % Fluid Comment Peritoneal Color Pale Yellow Peritoneal Appearance Clear Peritoneal WBC 93 (0-300) /ul Peritoneal RBC < 2000 /uL Peritoneal Tot Protein < 3.0 gm/dl Peritoneal Albumin < 1.5 gm/dl 10/01/22 10/01/22 10/01/22 Range/Units 20:32 17:09 17:09 WBC (4.8-10.8) K/ul RBC (4.63-6.08) M/uL Hgb (14.0-18.0) g/dl Hct (40.1-51.0) % MCV (80.0-100.0) fL MCH (25.0-34.0) pg MCHC (32.0-36.0) g/dL RDW Std Deviation (36.4-46.3) fL RDW Coeff of Suzanne (11.5-14.5) % Plt Count (130-400) K/uL MPV (9.4-12.4) fL PT (9.0-12.0) Seconds INR (0.9-1.1) Sodium (136-145) mmol/L Potassium (3.5-5.1) mmol/L Chloride (98-107) mmol/L Carbon Dioxide (21-32) mmol/L Anion Gap (3-11) BUN (6-23) mg/dl Creatinine (0.6-1.4) mg/dl Est Cr Clr Drug Dosing ml/min Est GFR ( Amer) ml/min Est GFR (Non-Af Amer) ml/min BUN/Creatinine Ratio (10-20) Glucose (70-99(Fasting)) mg/dl POC Glucose 125 H (70-99) mg/dl Calcium (8.5-10.1) mg/dl Magnesium (1.7-2.4) mg/dl Iron (35-175) mcg/dl TIBC Unsaturated IBC (155-355) mcg/dl Transferrin % Sat Ferritin (8-388) ng/ml Total Bilirubin (0.2-1.0) mg/dl AST (13-39) U/L ALT (7-52) U/L Alkaline Phosphatase (34-104) U/L Total Protein (6.0-8.3) gm/dl Albumin (3.4-5.0) gm/dl Globulin (2.5-4.0) gm/dl Albumin/Globulin Ratio (0.9-2) Vitamin B12 (180-914) pg/ml Folate (>5.38) ng/ml TSH (0.300-4.500) uIu/ml Urine Color Yellow Urine Appearance Clear (Clear) Urine pH 5.0 (4.5-7.5) Ur Specific [place] 1.010 (1.000-1.030) Urine Protein Negative (Negative) Urine Glucose (UA) Negative (Negative) Urine Ketones Negative (Negative) Urine Blood Negative (Negative) Urine Nitrite Negative (Negative) Urine Bilirubin Negative (Negative) Urine Urobilinogen Negative (Negative) Ur Leukocyte Esterase Negative (Negative) Ur Random Creatinine 59.6 mg/dl U Random Total Protein 26.0 H (0-11.9) mg/dl Protein/Creatinin Ratio 0.4 H (0-0.2) Fluid Neutrophils % % Fluid Lymphocytes % % Fluid Meso/Macro/[place] % % Fluid Comment Peritoneal Color Peritoneal Appearance Peritoneal WBC (0-300) /ul Peritoneal RBC /uL Peritoneal Tot Protein gm/dl Peritoneal Albumin gm/dl 10/01/22 10/01/22 10/01/22 Range/Units 15:53 15:53 15:53 WBC (4.8-10.8) K/ul RBC (4.63-6.08) M/uL Hgb (14.0-18.0) g/dl Hct (40.1-51.0) % MCV (80.0-100.0) fL MCH (25.0-34.0) pg MCHC (32.0-36.0) g/dL RDW Std Deviation (36.4-46.3) fL RDW Coeff of Suzanne (11.5-14.5) % Plt Count (130-400) K/uL MPV (9.4-12.4) fL PT (9.0-12.0) Seconds INR (0.9-1.1) Sodium 136 (136-145) mmol/L Potassium 3.5 (3.5-5.1) mmol/L Chloride 110 H (98-107) mmol/L Carbon Dioxide 18 L (21-32) mmol/L Anion Gap 8 (3-11) BUN 28 H (6-23) mg/dl Creatinine 2.59 H (0.6-1.4) mg/dl Est Cr Clr Drug Dosing 33.7 ml/min Est GFR ( Amer) 30.1 ml/min Est GFR (Non-Af Amer) 26.0 ml/min BUN/Creatinine Ratio 10.8 (10-20) Glucose 92 (70-99(Fasting)) mg/dl POC Glucose (70-99) mg/dl Calcium 7.9 L (8.5-10.1) mg/dl Magnesium (1.7-2.4) mg/dl Iron 87 (35-175) mcg/dl TIBC TNP Unsaturated IBC < 55 L (155-355) mcg/dl Transferrin % Sat TNP Ferritin 283.3 (8-388) ng/ml Total Bilirubin (0.2-1.0) mg/dl AST (13-39) U/L ALT (7-52) U/L Alkaline Phosphatase (34-104) U/L Total Protein (6.0-8.3) gm/dl Albumin (3.4-5.0) gm/dl Globulin (2.5-4.0) gm/dl Albumin/Globulin Ratio (0.9-2) Vitamin B12 > 1500 H (180-914) pg/ml Folate > 22.30 (>5.38) ng/ml TSH (0.300-4.500) uIu/ml Urine Color Urine Appearance (Clear) Urine pH (4.5-7.5) Ur Specific [place] (1.000-1.030) Urine Protein (Negative) Urine Glucose (UA) (Negative) Urine Ketones (Negative) Urine Blood (Negative) Urine Nitrite (Negative) Urine Bilirubin (Negative) Urine Urobilinogen (Negative) Ur Leukocyte Esterase (Negative) Ur Random Creatinine mg/dl U Random Total Protein (0-11.9) mg/dl Protein/Creatinin Ratio (0-0.2) Fluid Neutrophils % % Fluid Lymphocytes % % Fluid [place] % % Fluid Comment Peritoneal Color Peritoneal Appearance Peritoneal WBC (0-300) /ul Peritoneal RBC /uL Peritoneal Tot Protein gm/dl Peritoneal Albumin gm/dl 10/01/22 10/01/22 Range/Units 15:53 06:15 WBC (4.8-10.8) K/ul RBC (4.63-6.08) M/uL Hgb (14.0-18.0) g/dl Hct (40.1-51.0) % MCV (80.0-100.0) fL MCH (25.0-34.0) pg MCHC (32.0-36.0) g/dL RDW Std Deviation (36.4-46.3) fL RDW Coeff of Suzanne (11.5-14.5) % Plt Count (130-400) K/uL MPV (9.4-12.4) fL PT (9.0-12.0) Seconds INR (0.9-1.1) Sodium (136-145) mmol/L Potassium (3.5-5.1) mmol/L Chloride (98-107) mmol/L Carbon Dioxide (21-32) mmol/L Anion Gap (3-11) BUN (6-23) mg/dl Creatinine (0.6-1.4) mg/dl Est Cr Clr Drug Dosing ml/min Est GFR ( Amer) ml/min Est GFR (Non-Af Amer) ml/min BUN/Creatinine Ratio (10-20) Glucose (70-99(Fasting)) mg/dl POC Glucose (70-99) mg/dl Calcium (8.5-10.1) mg/dl Magnesium 2.3 (1.7-2.4) mg/dl Iron (35-175) mcg/dl TIBC Unsaturated IBC (155-355) mcg/dl Transferrin % Sat Ferritin (8-388) ng/ml Total Bilirubin (0.2-1.0) mg/dl AST (13-39) U/L ALT (7-52) U/L Alkaline Phosphatase (34-104) U/L Total Protein (6.0-8.3) gm/dl Albumin (3.4-5.0) gm/dl Globulin (2.5-4.0) gm/dl Albumin/Globulin Ratio (0.9-2) Vitamin B12 (180-914) pg/ml Folate (>5.38) ng/ml TSH 1.068 (0.300-4.500) uIu/ml Urine Color Urine Appearance (Clear) Urine pH (4.5-7.5) Ur Specific [place] (1.000-1.030) Urine Protein (Negative) Urine Glucose (UA) (Negative) Urine Ketones (Negative) Urine Blood (Negative) Urine Nitrite (Negative) Urine Bilirubin (Negative) Urine Urobilinogen (Negative) Ur Leukocyte Esterase (Negative) Ur Random Creatinine mg/dl U Random Total Protein (0-11.9) mg/dl Protein/Creatinin Ratio (0-0.2) Fluid Neutrophils % % Fluid Lymphocytes % % Fluid [place]/Mac[place] % % Fluid Comment Peritoneal Color Peritoneal Appearance Peritoneal WBC (0-300) /ul Peritoneal RBC /uL Peritoneal Tot Protein gm/dl Peritoneal Albumin gm/dl (1) Anemia Anemia type: unspecified type Qualified Code(s): D64.9 - Anemia, unspecified
[2022-10-02] MEDS: FUROSEMIDE 20 MG TAB PO SCH (09:48)
[2022-10-02] MEDS: METOPROLOL SUCC 50MG EXT REL TAB PO SCH (09:48)
--- NOTE | 2022-10-02 11:42 | Hospitalist Progress Note ---
Date of Service October 02, 2022 Assessment & Plan (1) Electrolyte abnormality: Plan: - Labs on 10/01 K+ 2.9 and Mg++ 1.1 - Replacement ordered for both - Continues KCl 20meq PO BID in meantime as well as lasix 20mg PO - Magnesium level this AM 1.9, not on any oral supplementation * Of note, pt also having reported diarrhea (see below), receipt of IV mag replacement could certainly have exacerbated the diarrhea (2) End stage liver disease: Plan: - MELD score has been calculated to 22, this is improved but still has 19% mortality - TB 2.0, ALP elevation (mild @ 122) - INR stable 1.4 (prior 1.6) - Plt low at 32, no bleeding reported--> unchanged on labs 10/02 @ 32 - S/P Paracentesis AM 10/01 for 5.3L transudative ascitic fluid aspirated per note - Albumin 25gm IV x 3 doses given paracentesis - Home meds continued including lasix 20mg daily (AM dose of Lasix held this AM d/t soft pressures) Continue LOW SALT diet, and eventual referral to Liver specialist at [facility] --> patient states follows w/ [facility] presby. CM following, nurse navigator to assist closer to d/c (3) Diarrhea: Plan: - Patient's had months worth of diarrhea according to the patient. - He has proctocolitis seen on his imaging. - He was treated with Rocephin during his last hospital stay for consideration of SBP prophylaxis but appears received 6 days IV rocephin, GI notes w/ EGD do rec 7 day course - Ordered stool studies -- has not had a BM since this order was placed - Continues on Cipro/Flagyl IV but does not appear to examine as acute abdomen/peritonitis at this time - If he develops systemic concerns for infection blood and urine cultures will also be obtained (4) CKD (chronic kidney disease): Plan: Stage 3 - Last admit, Cr up to 3.35 on admit, currently 2.51 - Had spironolactone discontinued last admission - Improvement on lasix continued, monitor BMP - Renal dose meds/avoid nephrotoxins as able - Nephrology consulted to assist with diuretic management in patient w/ cirrhosis/CKD as well as bicarb 16 on labs (presumed from diarrheal losses) - Renal function stable over the last 48 hours (5) Anemia: Plan: - Hgb is 10.7 --> 9.5 --> 8.0, no active bleeding - suspect some dilutional given large volume ascites/discontinuation of spironolactone at discharge last admission this month - Not surprising that hgb continues to drop in setting of IVF resuscitation - Will continue to monitor (6) Hypomagnesemia: Plan: - as above, monitor on repeat/additional replacement as needed (7) Metabolic acidosis: Plan: 2nd to diarrheal losses - slowly improving Plan Await PT/OT eval. Stool studies are pending collection, at this point, his diarrhea seems to have at least slowed down as opposed to completely resolved. No BM as of yet today. Asymptomatic hypotension, monitor closely and will give additional fluid bolus if needed. Will stop Cipro and Flagyl. Overall prognosis poor. Repeat labs in AM. D/c planning/dispo TBD. Plan d/w Dr. Mendoza. Admission and Anticipated Discharge Date Admission Date: September 30, 2022 Supervising Physician Co-Signing Physician Notes Patient seen and examined at bedside. Patient is confused and lethargic, Patient seend and examined at bedside. Performed physical examination at bedside, during face to face encounter. I reviewed above note and agree with it His blood pressure improved after midodrine. Added prednisolone as Maddrey score was above 32. Will do trial of aldactone to help diurese patient. Ammonia level was normal, will check inflammatory markers prior to restarting antibiotics. Subjective Patient seen on daily rounds this morning. Resting comfortably in bed, offers no complaints. Had 5.3L of acites taken off yesterday. Some overnight low systolic BPs and again this AM in the 80s but asymptomatic. Received IV Albumin and IVF boluses overnight. Denies abd pain, n/v/d, f/c, cp or dyspnea. Review of Systems Review of Systems: All systems reviewed and are unremarkable except as noted in HPI and below. Denies fever, chills, fatigue, headache, nasal congestion, sore throat, cough, chest pain, shortness of breath, palpitations, orthopnea, PND, abdominal pain, n/v/d, constipation, dysuria, hematuria, frequency, back pain, joint pain or swelling, skin lesions or rashes. Physical Exam Physical Exam: GENERAL: 61 yo chronically ill appearing WM, NAD. LUNGS: Clear to auscultation bilaterally. No W/R/R. CARDIOVASCULAR: Regular rate and rhythm. ABDOMEN: Soft, mildly distended but nontender. BS normoactive x 4 quad. : Singh with small amount of concentrated urine in bag EXTREMITIES: No edema. Non-tender. Peripheral pulses +2/4. NEUROLOGIC: A&O x3. PSYCHIATRIC: Cooperative. Appropriate mood and affect. SKIN: chronic venous stasis skin changes b/l LE Results & Data Results & Data ([facility]) Vital Signs (Past 12 Hours) Vital Signs Temp Pulse Pulse Resp BP BP Pulse Ox 10/02/22 07:47 36.4 C L 75 19 81/58 L 94 10/02/22 05:12 80/53 L 10/02/22 03:30 36.4 C L 81 18 81/44 L 96 10/02/22 00:41 64 O2 Del Method 10/02/22 07:47 Room Air 10/02/22 05:12 10/02/22 03:30 Room Air 10/02/22 00:41 Laboratory Results 10/02/22 05:50 10/02/22 05:50 PG Care Time/CCT Total # of Minutes Spent Total Time Spent with Patient: Total time spent is greater than 50% in coordination of care (as documented) at patient's floor/unit and/or counseling patient: Coding Level of Care Code 92338 Subseq Hosp Care Lvl 3 Diagnoses Electrolyte abnormality E87.8 End stage liver disease K72.10 Diarrhea R19.7 CKD (chronic kidney disease) N18.9 Chronic kidney disease stage: unspecified stage Anemia D64.9 Anemia type: unspecified type Hypomagnesemia E83.42 Metabolic acidosis E87.20 (1) Anemia Anemia type: unspecified type Qualified Code(s): D64.9 - Anemia, unspecified (2) CKD (chronic kidney disease) Chronic kidney disease stage: unspecified stage Qualified Code(s): N18.9 - Chronic kidney disease, unspecified
--- NOTE | 2022-10-02 12:18 | Nephrology Progress Note ---
Date of Service October 02, 2022 Assessment & Plan (1) Chronic kidney disease, stage 4 (severe): (2) Metabolic acidosis: (3) Hypomagnesemia: (4) Hypokalemia: (5) End stage liver disease: (6) Anemia: Plan 61-year-old gentlemen with end-stage liver disease with meld score of 21 a dmitted to the hospital with worsening ascites needing for paracentesis. Renal function has been abnormal with an episode of AK I recently at during hospitalization early September when creatinine peaked to 3.4 than on discharge improved to 2.2. On admission yesterday again creatinine noted to be elevated at 2.7 which slightly improved to 2.5 this morning. No urinalysis available. Prior renal imaging otherwise unremarkable. Unclear baseline renal function as no prior records available. It is also not clear whether abnormal renal function secondary to hepatorenal syndrome or underlying advanced CKD with multiple risk factors including diabetes, smoking and end-stage liver disease. --It would be helpful to get some prior records from either [facility] or his PCP to have idea about baseline renal function however it is quite possible that kidney function has been this low for the time being. Overall prognosis seems quite poor for underlying cirrhosis with meld score 21 indicating 3 months mortality about 20%, unless patient is a of candidate for liver transplant -- As blood pressure running low recommend starting on midodrine 5 mg 3 times a day and increase as needed. -- start on sodium bicarbonate 650 mg twice a day Will follow. Admission and Anticipated Discharge Date Admission Date: September 30, 2022 Rosey Mccoy was seen this morning, he offered no symptoms but he seemed lethargic and easily falling off to sleep. Blood pressure has been low received IV fluid bolus overnight. Renal function staying relatively stable with acidosis. Review of Systems Review of Systems: Detailed review of system was otherwise unremarkable except mentioned above in HPI. Physical Exam Constitutional: WD/WN, vitals as above + ill appearing, + cachectic, + frail appearing and + lethargic; no acute distress Eyes: + anicteric sclerae ENMT: Ears: no hearing impairment Neck: normal visual inspection Thyroid: no thyromegaly Respiratory: Auscultation: lungs clear to auscultation bilaterally Cardiovascular: RRR, no murmur, no edema Musculoskeletal: Extremities: extremities normal to inspection Skin: no rashes Neurologic: no focal motor deficits Psychiatric: Orientation: alert and oriented x 3 Affect: euthymic affect Results & Data ([facility]) Vital Signs (Past 12 Hours) Vital Signs Temp Pulse Pulse Resp BP BP Pulse Ox 10/02/22 12:14 36.4 C L 74 19 88/39 L 90 10/02/22 07:47 36.4 C L 75 19 81/58 L 94 10/02/22 05:12 80/53 L 10/02/22 03:30 36.4 C L 81 18 81/44 L 96 10/02/22 00:41 64 O2 Del Method 10/02/22 12:14 Room Air 10/02/22 07:47 Room Air 10/02/22 05:12 10/02/22 03:30 Room Air 10/02/22 00:41 PG Care Time/CCT Total # of Minutes Spent Total Time Spent with Patient: Total time spent is greater than 50% in coordination of care (as documented) at patient's floor/unit and/or counseling patient: Coding Level of Care Code 50133 Subseq Hosp Care Lvl 3 Diagnoses Chronic kidney disease, stage 4 (severe) N18.4 Metabolic acidosis E87.20 Hypomagnesemia E83.42 Hypokalemia E87.6 End stage liver disease K72.10 Anemia D64.9 Anemia type: unspecified type (1) Anemia Anemia type: unspecified type Qualified Code(s): D64.9 - Anemia, unspecified
[2022-10-02 14:06] LABS: Base Excess VBG -8.4 mEq/L; HCO3 VBG 17 mmol/L; Oxygen Saturation VBG < 60.0 %; PCO2 VBG 35 mmHg (38-50); PO2 VBG 12 mmHg
--- NOTE | 2022-10-02 14:18 | XRay Report ---
SINGLE VIEW CHEST CLINICAL HISTORY: Hypoxia. FINDINGS: An AP, portable, upright chest radiograph is compared to study dated 09/30/2022 and correla gabby with chest CT dated 09/22/2022. The cardiomediastinal silhouette is top normal for projection. Th ere is chronic elevation of the right hemidiaphragm. Airspace consolidation is seen bilaterally in a perihilar and lower lobe distribution. Trace pleural effusions are suspected. No pneumothorax is seen . The skeletal structures are osteopenic. The bony thorax is grossly intact. IMPRESSION: 1. Bilateral airspace consolidation as above. This is new from 09/30/2022 and could represent pulmona ry edema and/or multifocal pneumonia/aspiration pneumonitis. Clinical correlation will be required an d radiographic follow-up to resolution is recommended. 2. Suspect small pleural effusions. ACT 112: Negative or not required by law. Electronically signed by: Hawk Mendoza M.D. 10/02/2022 2:17 PM
[2022-10-02] MEDS: prednisoLONE sod phosphate 15 MG/5 ML PO SCH (15:23)
[2022-10-02] MEDS ORDERED: PIPERACILLIN/TAZOBACTAM 3.375 GM in DEXTROSE 5% 100 ML IV SCH (16:00)
[2022-10-02] MEDS: SPIRONOLACTONE 25 MG TAB PO SCH ×2 (17:42→18:25)
[2022-10-02] MEDS ORDERED: cefTRIAXone SODIUM 2,000 MG in DEXTROSE 5% 50 ML IV STA (18:04)
[2022-10-02] MEDS ORDERED: SODIUM CHLORIDE 0.9% 1000ML 1,000 ML IV SCH (18:05)
[2022-10-02] MEDS ORDERED: SODIUM CHLORIDE 0.9% 250 ML IV PRN (18:07)
--- NOTE | 2022-10-02 18:10 | Communication Note ---
Date of Service: October 02, 2022 Asked to evaluate due to low blood pressures. Sleeping but easily awakens to voice. Oriented, but very easily groggy. Denies any shortness of breath. Denies any abdominal pain, denies any bloody bowel movements, in fact has not had a bowel movement since arrival. Does not feel weak or lightheaded. Nursing notes that his blood pressures have been a bit marginal since his paracentesis yesterday. Vitals noted, in general he is awake and alert groggy but oriented fatigued. HEENT normocephalic atraumatic mucous membranes moist. Cardio distant lungs diminished abdomen soft mild distended mild fluid wave but no guarding rebound rigidity or tenderness. Skin shows an ashen color surprisingly does not look icteric. Cirrhosis, hypotensionsuspect volume down. His hemoglobin has been trickling downbut with no appearance of actual hemorrhage by his recall or nursing evaluation, more than likely anemia of chronic disease than an acute bleed. We will give a liter of saline and follow his pressures, repeat CBC and basic metabolic panel now, if his hemoglobin is continuing to drop or if pressures do not respond in a meaningful way to the fluid bolus, I have ordered 2 units type and cross. Because of his change of status with cirrhosis with ascitesadded ceftriaxone to cover for (unlikely) SBP until the situation is more clearly elucidated. Updated primary team.
[2022-10-02 19:08] LABS: Hematocrit (blood only) 26.6 % (40.1-51.0); Hemoglobin 9.3 g/dl (14.0-18.0); Mean Corpuscular Hemoglobin 30.4 pg (25.0-34.0); Mean Corpuscular Volume 86.9 fL (80.0-100.0); Platelet Count 33 K/uL (130-400); RDW Coefficient of Variation 21.5 % (11.5-14.5); RDW Standard Deviation 60.2 fL (36.4-46.3); Red Blood Count 3.06 M/uL (4.63-6.08); White Blood Count 16.64 K/ul (4.8-10.8)
[2022-10-02 19:09] LABS: Anisocytosis Present; Basophils # (auto) 0.02 K/uL (0-0.2); Basophils % (auto) 0.1 %; Echinocytes 1+; Eosinophils # (auto) 0.01 K/uL (0-0.50); Eosinophils % (auto) 0.1 %; Immature Granulocytes # (auto) 0.05 K/uL (0.00-0.02); Immature Granulocytes % (auto) 0.3 %; Lymphocytes # (auto) 0.23 K/uL (1.2-3.4); Lymphocytes % (auto) 1.4 %; Monocytes % (auto) 3.6 %; Neutrophils # (auto) 15.73 K/uL (1.4-6.5); Neutrophils % (auto) 94.5 %; Platelet Estimate Signific. Decreased (Normal)
[2022-10-02 19:18] LABS: BUN Creatinine Ratio 9.8 (10-20); Calcium 8.2 mg/dl (8.5-10.1); Creatinine Clr Calc Pharmacy 30.4 ml/min; Est GFR (African American) 26.6 ml/min; Est GFR (Non-African American) 22.9 ml/min; Potassium 4.1 mmol/L (3.5-5.1)
[2022-10-02] MEDS: ALBUT/IPRATROP 3MG/0.5MG NEB 3 ML VIAL NEB SCH (20:02)
[2022-10-02] MEDS: TAMSULOSIN HCL 0.4 MG CAP PO SCH (20:08)
[2022-10-02] MEDS: SODIUM BICARBONATE 650 MG TAB PO SCH (20:08)
[2022-10-02] MEDS ORDERED: MIDODRINE HCL 2.5 MG TAB PO STA (20:35)
[2022-10-02] MEDS ORDERED: ALBUMIN 25% 100 mL 25 GM/100 ML VIAL IV ONE (20:37)
[2022-10-02] MEDS ORDERED: SODIUM CHLORIDE 0.9% 1000ML 250 ML IV ONE (21:26)
--- NOTE | 2022-10-02 21:29 | Communication Note ---
Date of Service: October 02, 2022 Notified about hypotension. His BPs remain in the high 80s-low 90s/DBPs in the 50s. HR in the 60s. Seen at bedside. Somnolent but arousable. Takes a second to orient but is able to tell me his name, where he is, and the time of day. He endorses some mild lightheadedness. At the bedside, BP 94/74. Appears chronically ill with some jaundice. MS - so mnolent but A+Ox3. Cardiac - NRRR w/o m/r/g. Neck - positive hepatojugular reflux. Respiratory - mild crackles in the bases. Abdomen - mild ascites, no TTP. Extremities - No peripheral edema. capillary refill < 1 seconed in RUE. HoTN. He is somnolent but arousable and demonstrates good peripheral perfusion. Noted he's had 5.3L off from paracentesis on 10/01. However, repeat labs do show new leukocytosis and worsening BUN/Cr. Hgb 9.3. Still may represent volume contraction, however will collect lactate, CRP, procal, and blood cultures for further w/u of infectious etiology / SBP. He is on CFTX - continue. Will give another small bolus of NSS @ 250cc with close monitoring of volume status. Give midodrine 5mg now and 25g of 25% albumin. Hold AM metoprolol. Await labs. Move to PCU for closer monitoring. Crackles - obtain CXR now, SpO2 and RR are respectable. Resident Activity Tracking Resident Involvement: Resident Care Provided Care Provided: Adult Hospital Medicine
--- NOTE | 2022-10-02 21:54 | XRay Report ---
SINGLE VIEW CHEST CLINICAL HISTORY: Cirrhosis. Crackles on physical examination. FINDINGS: An AP, portable, upright chest radiograph is compared to study performed earlier the same d ay 10/02/2022 and correlated with chest CT dated 09/22/2022. The examination is degraded by portable technique and patient rotation. The cardiomediastinal silhouette is top normal for projection. There is chronic elevation of the right hemidiaphragm. Again seen is bilateral airspace consolidation in a perihilar and lower lobe distribution. Trace pleural effusions are suspected. No pneumothorax is see n. The skeletal structures are osteopenic. The bony thorax is grossly intact. IMPRESSION: 1. Bilateral airspace consolidation as above has partially cleared as compared to today's earlier exa mination. The appearance/time coarse favors pulmonary edema. Correlate clinically for evidence of a s uperimposed pneumonia/aspiration pneumonitis. Radiographic follow-up to resolution is recommended. 2. Suspect small pleural effusions. ACT 112: Negative or not required by law. Electronically signed by: Hawk Mendoza M.D. 10/02/2022 9:52 PM
[2022-10-02] MEDS ORDERED: SODIUM CHLORIDE 0.9% 500 ML IV ONE (23:54)
[2022-10-03] MEDS ORDERED: MIDODRINE HCL 2.5 MG TAB PO STA
[2022-10-03] MEDS: ALBUMIN 25% 100 mL 25 GM/100 ML VIAL IV SCH ×2 (00:05→02:59)
[2022-10-03 00:27] LABS: Hematocrit (blood only) 24.7 % (40.1-51.0); Hemoglobin 8.5 g/dl (14.0-18.0)
[2022-10-03] MEDS: ALBUT/IPRATROP 3MG/0.5MG NEB 3 ML VIAL NEB SCH ×4 (05:50→19:17)
[2022-10-03 06:14] LABS: Prothrombin Time 20.5 Seconds (9.0-12.0)
[2022-10-03 06:15] LABS: Hematocrit (blood only) 24.9 % (40.1-51.0); Hemoglobin 8.6 g/dl (14.0-18.0); Mean Corpuscular Hemoglobin 30.5 pg (25.0-34.0); Mean Corpuscular Hgb Conc 34.5 g/dL (32.0-36.0); Mean Corpuscular Volume 88.3 fL (80.0-100.0); Platelet Count 23 K/uL (130-400); RDW Coefficient of Variation 21.8 % (11.5-14.5); RDW Standard Deviation 61.6 fL (36.4-46.3); Red Blood Count 2.82 M/uL (4.63-6.08); White Blood Count 12.56 K/ul (4.8-10.8)
[2022-10-03 06:29] LABS: Albumin Globulin Ratio 1.7 (0.9-2); Albumin Level 3.8 gm/dl (3.4-5.0); BUN Creatinine Ratio 10.4 (10-20); Bilirubin,Total 1.8 mg/dl (0.2-1.0); Calcium 8.3 mg/dl (8.5-10.1); Est GFR (African American) 27.4 ml/min; Est GFR (Non-African American) 23.6 ml/min; Globulin 2.2 gm/dl (2.5-4.0); Magnesium 1.8 mg/dl (1.7-2.4); Potassium 4.3 mmol/L (3.5-5.1)
[2022-10-03] MEDS ORDERED: METOPROLOL SUCC 50MG EXT REL TAB PO SCH (09:00)
[2022-10-03] MEDS: DULoxetine HCL 30 MG CAP PO SCH ×2 (09:46→20:33)
[2022-10-03] MEDS: PANTOprazole 40 MG TAB PO SCH ×2 (09:46→20:34)
[2022-10-03] MEDS: allopurinoL 100 MG TAB PO SCH (09:47)
[2022-10-03] MEDS: CYANOCOBALAMIN (B-12) 500 MCG TABLET PO SCH (09:47)
[2022-10-03] MEDS: LURASIDONE HCL 40 MG TAB PO SCH (09:47)
[2022-10-03] MEDS: PSYLLIUM or GUAR GUM FIBER POWDER PACKET PO SCH (09:47)
[2022-10-03] MEDS: ASCORBIC ACID 500 MG TAB PO SCH (09:47)
[2022-10-03] MEDS: busPIRone 5 MG TAB PO SCH ×2 (09:47→20:33)
[2022-10-03] MEDS: SODIUM BICARBONATE 650 MG TAB PO SCH ×2 (09:48→20:34)
[2022-10-03] MEDS: prednisoLONE sod phosphate 15 MG/5 ML PO SCH (09:48)
[2022-10-03] MEDS: FUROSEMIDE 20 MG TAB PO SCH (09:48)
[2022-10-03] MEDS: TOPIRAMATE 100 MG TAB PO SCH ×2 (09:48→20:34)
[2022-10-03] MEDS: MIDODRINE HCL 10 MG TAB PO SCH ×3 (09:50→18:00)
[2022-10-03] MEDS: PREGABALIN 150 MG CAP PO SCH ×2 (09:50→20:37)
[2022-10-03] MEDS: SPIRONOLACTONE 25 MG TAB PO SCH (10:39)
--- NOTE | 2022-10-03 12:21 | Nephrology Progress Note ---
Date of Service October 03, 2022 Assessment & Plan (1) Chronic kidney disease, stage 4 (severe): (2) Metabolic acidosis: (3) Hypomagnesemia: (4) Hypokalemia: (5) End stage liver disease: (6) Anemia: Plan 61-year-old gentlemen with end-stage liver disease with meld score of 21 a dmitted to the hospital with worsening ascites needing for paracentesis. Renal function has been abnormal with an episode of AK I recently at during hospitalization early September when creatinine peaked to 3.4 than on discharge improved to 2.2. On admission yesterday again creatinine noted to be elevated at 2.7 which slightly improved to 2.5 this morning. Urinalysis with no proteinuria. Prior renal imaging otherwise unremarkable. Unclear baseline renal function as no prior records available. It is also not clear whether abnormal renal function secondary to hepatorenal syndrome or underlying advanced CKD with multiple risk factors including diabetes, smoking and end-stage liver disease. Has been hypotensive with change in mental status and transferred to PCU yesterday, started on midodrine and ceftriaxone overall clinically much better today, more awake and alert, but remained hypotensive and urine output has been low. --hold Lasix, encourage increase p.o. intake, monitor intake and output, if urine output remains low, recommend starting on IV fluid with bicarbonate --increase sodium bicarbonate to 650 mg 2 tab twice a day -- he understands that his overall prognosis remains guarded with multiple critical comorbidities, would recommend palliative care consult to discuss about options including home hospice care. Will follow. Admission and Anticipated Discharge Date Admission Date: September 30, 2022 Rosey Mccoy was seen this morning. Eat today he was transferred for to PCU because of hypotension and lethargy. Overall much more awake and alert this morning Although blood pressure still low. Renal function staying relatively stable with acidosis. UO low. Review of Systems Review of Systems: Detailed review of system was otherwise unremarkable except mentioned above in HPI. Physical Exam Constitutional: WD/WN, vitals as above + ill appearing, + cachectic and + frail appearing; no acute distress Eyes: + anicteric sclerae ENMT: Ears: no hearing impairment Neck: normal visual inspection Respiratory: no respiratory distress Auscultation: + diminished lung sounds; no crackles Cardiovascular: RRR, no murmur, no edema Neurologic: no focal motor deficits Psychiatric: Orientation: alert and oriented x 3 Affect: euthymic affect Results & Data ([facility]) Vital Signs (Past 12 Hours) Vital Signs Temp Pulse Pulse Resp BP BP Pulse Ox 10/03/22 11:36 34.9 C L 91 H 16 98 10/03/22 10:30 82 18 97 10/03/22 07:00 79 10/03/22 07:10 36.3 C L 10/03/22 07:06 77 16 82/53 L 100 10/03/22 06:09 101/58 L 10/03/22 05:01 93/72 L 10/03/22 04:39 95/68 L 10/03/22 03:41 98/62 L 10/03/22 02:46 86/50 L 10/03/22 02:35 36.5 C 70 12 100 10/03/22 02:10 89/53 L 10/03/22 01:32 72 8 L 10/03/22 01:32 84/60 L 10/03/22 01:30 73 11 L 84/60 L 10/03/22 01:30 78/64 L 10/03/22 01:07 76 14 10/03/22 01:07 97/67 L 10/03/22 01:00 78 14 10/03/22 01:00 89/63 L 10/03/22 00:30 74 8 L 10/03/22 00:30 94/64 L 10/03/22 01:10 72 97/67 L 10/03/22 00:31 94/64 L O2 Del Method O2 Flow Rate 10/03/22 11:36 Nasal Cannula 2 10/03/22 10:30 Nasal Cannula 2 10/03/22 07:00 10/03/22 07:10 10/03/22 07:06 Nasal Cannula 2 10/03/22 06:09 10/03/22 05:01 10/03/22 04:39 10/03/22 03:41 10/03/22 02:46 10/03/22 02:35 Nasal Cannula 2 10/03/22 02:10 10/03/22 01:32 10/03/22 01:32 10/03/22 01:30 10/03/22 01:30 10/03/22 01:07 10/03/22 01:07 10/03/22 01:00 10/03/22 01:00 10/03/22 00:30 10/03/22 00:30 10/03/22 01:10 10/03/22 00:31 PG Care Time/CCT Total # of Minutes Spent Total Time Spent with Patient: Total time spent is greater than 50% in coordination of care (as documented) at patient's floor/unit and/or counseling patient: Coding Level of Care Code 57116 Subseq Hosp Care Lvl 3 Diagnoses Chronic kidney disease, stage 4 (severe) N18.4 Metabolic acidosis E87.20 Hypomagnesemia E83.42 Hypokalemia E87.6 End stage liver disease K72.10 Anemia D64.9 Anemia type: unspecified type (1) Anemia Anemia type: unspecified type Qualified Code(s): D64.9 - Anemia, unspecified
--- NOTE | 2022-10-03 13:09 | Hospitalist Progress Note ---
Date of Service October 03, 2022 Assessment & Plan (1) End stage liver disease: Plan: - MELD score has been calculated to 22, this is improved but still has 19% mortality - TB 2.0, ALP elevation (mild @ 122) - INR stable 1.4 (prior 1.6) - Plt low at 32, no bleeding reported--> unchanged on labs 10/02 @ 32 - S/P Paracentesis AM 10/01 for 5.3L transudative ascitic fluid aspirated per note - Albumin 25gm IV x 3 doses given paracentesis - Home meds continued including lasix 20mg daily (AM dose of Lasix held this AM d/t soft pressures) - On Metoprolol I presume for varices, but this has been discontinued d/t hypotension - I suspect that his hypotension is all related to his liver disease, although he still appears to be adequately perfusing his kidneys - Started on Midodrine 10mg TID - Spoke to Dr. Chaudhry, plan to speak again tomorrow to determine if improvement could consider tx for transplant eval - I have emphasized that his prognosis is poor given his complex case with hypotension, oliguric renal insufficiency, and - Maddrey's score 41.1 points indicating poor prognosis, greater than 32 points notes poor prognosis and pt may benefit from glucocorticoid therapy, started on Prednisolone 40mg daily on 10/02 (2) Acute respiratory failure with hypoxia: Plan: - Developed hypoxia yesterday afternoon requiring 3L of supplemental O2 - CXR obtained demonstrating bibasilar opacities -- fluid v developing pneumonitis - Intended to cover empirically with abx (Zosyn ordered) but attending discontinued these - Added Duonebs QIDR and q2h PRN shortness of breath - Continued on supplemental O2 - Repeat CXR later on 10/02 noted some improvement which favored likely a component of pulmonary edema - Still has RML/RLL opacity on repeat CXR and suspect that this represents developing aspiration pneumonia, supported by bumped procal and now w/ leukocytosis - Start Unasyn (3) Aspiration into airway: Plan: - Evaluated today by ENGAGEMENT MANAGER - For swallowing study tomorrow - Modified diet as ordered: nectar thick liquids and minced and moist diet - Pills can be given in pudding - Abx treatment as above (4) Electrolyte abnormality: Plan: - Labs on 11/25 K+ 2.9 and Mg++ 1.1 - Replacement ordered for both - Continues KCl 20meq PO BID in meantime as well as lasix 20mg PO - Magnesium level this AM 1.9, not on any oral supplementation * Of note, pt also having reported diarrhea (see below), receipt of IV mag replacement could certainly have exacerbated the diarrhea (5) Diarrhea: Plan: - Patient's had months worth of diarrhea according to the patient. - He has proctocolitis seen on his imaging. - He was treated with Rocephin during his last hospital stay for consideration of SBP prophylaxis but appears received 6 days IV rocephin, GI notes w/ EGD do rec 7 day course - Ordered stool studies -- has not had a BM since this order was placed - Cipro/Flagyl IV started on admit but does not appear to examine as acute abdomen/peritonitis at this time --> abx d/c'd on 10/02 (6) CKD (chronic kidney disease): Plan: Stage 3 - Last admit, Cr up to 3.35 on admit, currently 2.51 - Had spironolactone discontinued last admission - Improvement on lasix continued, monitor BMP - Renal dose meds/avoid nephrotoxins as able - Nephrology consulted to assist with diuretic management in patient w/ cirrhosis/CKD as well as bicarb 16 on labs (presumed from diarrheal losses) - Continue Sodium bicarb - Renal function relatively stable over the last 48 hours but now oliguric (7) Anemia: Plan: - Hgb is 10.7 --> 9.5 --> 8.0, no active bleeding - suspect some dilutional given large volume ascites/discontinuation of spirono lactone at discharge last admission this month - Not surprising that hgb continues to drop in setting of IVF resuscitation - Will continue to monitor - Has 2 units PRBCs on hold (8) Hypomagnesemia: Plan: - as above, monitor on repeat/additional replacement as needed (9) Metabolic acidosis: Plan: 2nd to worsening renal function - Nephrology following - Continue Sodium bicarb Plan Had a lengthy discussion at bedside with patient regarding his goals of care. He understands and seems to have good insight into his disease process and understands that his prognosis is poor. He is open to speaking with palliative medicine team, formal consult placed. He tells me that he would rather spend what time he has left at home with his significant other, Jania, and his rosette. Did ask again regarding his code status, he still stated he would want to be resuscitated but that if he did not have hope for a meaningful recovery that he would want Jania to discontinue life support. He states that he has a living will and she is his POA. He has asked me to provide her with an update, of which I did this afternoon. She did tell me that according to Brant's living will, he has indicated that he does not want to be a full code. Will revisit this with him again this afternoon and make any needed changes to the c villegas if he verifies this with me. I did also speak with Dr. Chaudhry this afternoon who notes that if Brant's condition improves over the next 24 hours, could consider transfer to [facility] for transplant evaluation; however, we will need to discuss and determine if this is the path that the patient wants to pursue given that even with transfer, it may be determined that he is not a transplant candidate OR if he is, that he may not survive until an available organ would be located. Jania voiced understanding of the above. Will consult palliative medicine team. Appreciate assistance. Plan d/w Dr. Massey. Admission and Anticipated Discharge Date Admission Date: September 30, 2022 Subjective Mr. Carter was seen on daily rounds this morning. He was moved to PCU overnight due to ongoing soft BPs. Ammonia level checked yesterday and was WNL at 28. He has remained A&O despite his pressures. He received 1L of saline for reported hypotension around 1800 of 76 systolic with plans to transfuse PRBCs if repeated hypotensive episodes overnight. Communication note indicates resident was called to bedside again @ 2100 d/t hypotension in the 80s-90s systolic, but pt co ntinued to be alert and oriented and answered questions appropriately. He was given another 250 cc bolus of fluid, 5mg of Midodrine, and IV Albumin. This morning, pt is awake and alert. He is sitting up in bedside chair. He offers no complaints. Denies lightheadness, dizziness. No cp or dyspnea. He is currently on 2L of nasal cannula O2 with a sat of 99%. He did have a cxr yesterday which demonstrated bibasilar opacities which were unclear whether this represented fluid v. developing pna. Nebs ordered. RN reported choking episodes with swallowing pills and eating. Speech eval was ordered. During my visit this morning, pt was being assessed by ENGAGEMENT MANAGER and had evidence of aspiration while attempting to swallow thin liquids with immediate coughing and desats into the 70s. Subsequently modified diet has been ordered and he will be referred for swallowing study tomorrow. Pt is established with a bioprocess development engineer at [facility], Dr. Chaudhry. He has been told by this physician that there is not much more that can be done for him in terms of his liver disease. Pt states he understands that his prognosis is poor and that he is not going to survive much longer. He is asking that I provide an update to his significant other, Jania. Review of Systems Review of Systems: All systems reviewed and are unremarkable except as noted in HPI and below. +coughing/choking on liquids/swallowing difficulties Denies fever, chills, fatigue, headache, nasal congestion, sore throat, cough, chest pain, shortness of breath, palpitations, orthopnea, PND, abdominal pain, n/v/d, constipation, dysuria, hematuria, frequency, back pain, joint pain or swelling, skin lesions or rashes. Physical Exam Physical Exam: GENERAL: 61 yo chronically ill appearing WM, NAD. LUNGS: Nonlabored. Coarse rhonchi and wheezes appreciated throughout. CARDIOVASCULAR: Regular rate and rhythm. ABDOMEN: Soft, mildly distended but nontender. BS normoactive x 4 quad. : Singh with small amount of concentrated urine in bag EXTREMITIES: No edema. Non-tender. Peripheral pulses +2/4. NEUROLOGIC: A&O x3. PSYCHIATRIC: Cooperative. Appropriate mood and affect. SKIN: chronic venous stasis skin changes b/l LE Results & Data Results & Data ([facility]) Vital Signs (Past 12 Hours) Vital Signs Temp Pulse Pulse Resp BP BP Pulse Ox 10/03/22 12:34 96 H 20 99 10/03/22 12:34 108/82 10/03/22 12:31 112 H 31 H 10/03/22 12:17 79 L 10/03/22 11:34 89 17 69 L 10/03/22 11:34 87/53 L 10/03/22 11:30 88 24 83 L 10/03/22 11:01 91/59 L 10/03/22 11:01 89 14 83 L 10/03/22 11:00 91 H 16 80 L 10/03/22 10:30 85 15 10/03/22 10:01 85 15 10/03/22 10:01 97/60 L 10/03/22 10:00 91 H 22 94 10/03/22 09:31 91/57 L 10/03/22 09:31 84 19 10/03/22 09:30 88 20 10/03/22 09:24 89/59 L 10/03/22 09:20 68 18 10/03/22 09:00 79 9 L 10/03/22 09:00 91/61 L 10/03/22 08:30 80 10 L 10/03/22 08:30 84/63 L 10/03/22 08:00 86 10 L 10/03/22 08:00 111/67 10/03/22 07:30 85 14 10/03/22 07:30 84/58 L 10/03/22 07:05 82/53 L 10/03/22 07:05 76 8 L 99 10/03/22 07:00 78 9 L 100 10/03/22 07:00 80/60 L 10/03/22 11:36 34.9 C L 91 H 16 98 10/03/22 10:30 82 18 97 10/03/22 07:00 79 10/03/22 07:10 36.3 C L 10/03/22 07:06 77 16 82/53 L 100 10/03/22 06:09 101/58 L 10/03/22 05:01 93/72 L 10/03/22 04:39 95/68 L 10/03/22 03:41 98/62 L 10/03/22 02:46 86/50 L 10/03/22 02:35 36.5 C 70 12 100 10/03/22 02:10 89/53 L 10/03/22 01:32 72 8 L 10/03/22 01:32 84/60 L 10/03/22 01:30 73 11 L 84/60 L 10/03/22 01:30 78/64 L 10/03/22 01:10 72 97/67 L Laboratory Results 10/03/22 05:57 10/03/22 05:57 PG Care Time/CCT Total # of Minutes Spent Total Time Spent with Patient: Total time spent is greater than 50% in coordination of care (as documented) at patient's floor/unit and/or counseling patient: Coding Level of Care Code 70393 Subseq Hosp Care Lvl 3 Diagnoses End stage liver disease K72.10 Acute respiratory failure with hypoxia J96.01 Aspiration into airway T17.908A Electrolyte abnormality E87.8 Diarrhea R19.7 CKD (chronic kidney disease) N18.9 Chronic kidney disease stage: unspecified stage Anemia D64.9 Anemia type: unspecified type Hypomagnesemia E83.42 Metabolic acidosis E87.20 (1) CKD (chronic kidney disease) Chronic kidney disease stage: unspecified stage Qualified Code(s): N18.9 - Chronic kidney disease, unspecified (2) Anemia Anemia type: unspecified type Qualified Code(s): D64.9 - Anemia, unspecified
[2022-10-03] MEDS: AMPICILLIN/SULBACTAM SOD 3,000 MG in 0.9 % SODIUM CHLORIDE 100 ML IV SCH ×2 (14:31→20:30)
[2022-10-03] MEDS ORDERED: cefTRIAXone SODIUM 2,000 MG in DEXTROSE 5% 50 ML IV SCH (18:00)
[2022-10-03] MEDS: TAMSULOSIN HCL 0.4 MG CAP PO SCH (20:34)
[2022-10-04] MEDS: AMPICILLIN/SULBACTAM SOD 3,000 MG in 0.9 % SODIUM CHLORIDE 100 ML IV SCH ×3 (01:36→13:56)
[2022-10-04] MEDS: ALBUT/IPRATROP 3MG/0.5MG NEB 3 ML VIAL NEB SCH ×2 (05:37→11:10)
[2022-10-04 07:54] LABS: Hematocrit (blood only) 23.7 % (40.1-51.0); Hemoglobin 8.3 g/dl (14.0-18.0); Mean Corpuscular Hemoglobin 30.5 pg (25.0-34.0); Mean Corpuscular Volume 87.1 fL (80.0-100.0); Mean Platelet Volume 10.8 fL (9.4-12.4); Platelet Count 20 K/uL (130-400); RDW Coefficient of Variation 22.2 % (11.5-14.5); RDW Standard Deviation 61.9 fL (36.4-46.3); Red Blood Count 2.72 M/uL (4.63-6.08); White Blood Count 10.62 K/ul (4.8-10.8)
[2022-10-04 08:03] LABS: Platelet Estimate Decreased (Normal)
[2022-10-04] MEDS: PSYLLIUM or GUAR GUM FIBER POWDER PACKET PO SCH (08:25)
[2022-10-04] MEDS: PANTOprazole 40 MG TAB PO SCH ×2 (08:25→21:34)
[2022-10-04] MEDS: DULoxetine HCL 30 MG CAP PO SCH ×2 (08:25→21:34)
[2022-10-04] MEDS: MIDODRINE HCL 10 MG TAB PO SCH ×3 (08:25→18:05)
[2022-10-04] MEDS: TOPIRAMATE 100 MG TAB PO SCH ×2 (08:26→21:35)
[2022-10-04] MEDS: allopurinoL 100 MG TAB PO SCH (08:26)
[2022-10-04] MEDS: LURASIDONE HCL 40 MG TAB PO SCH (08:26)
[2022-10-04] MEDS: ASCORBIC ACID 500 MG TAB PO SCH (08:26)
[2022-10-04] MEDS: SODIUM BICARBONATE 650 MG TAB PO SCH ×2 (08:26→21:35)
[2022-10-04] MEDS: busPIRone 5 MG TAB PO SCH ×2 (08:26→21:34)
[2022-10-04] MEDS: CYANOCOBALAMIN (B-12) 500 MCG TABLET PO SCH (08:26)
[2022-10-04] MEDS: prednisoLONE sod phosphate 15 MG/5 ML PO SCH (08:27)
[2022-10-04] MEDS: PREGABALIN 150 MG CAP PO SCH ×2 (08:28→21:35)
[2022-10-04 08:33] LABS: Albumin Globulin Ratio 1.5 (0.9-2); Albumin Level 3.4 gm/dl (3.4-5.0); BUN Creatinine Ratio 11.2 (10-20); Bilirubin,Total 1.2 mg/dl (0.2-1.0); Calcium 8.5 mg/dl (8.5-10.1); Creatinine Clr Calc Pharmacy 27.8 ml/min; Est GFR (Non-African American) 20.7 ml/min; Globulin 2.2 gm/dl (2.5-4.0); Potassium 3.5 mmol/L (3.5-5.1); Total Protein 5.6 gm/dl (6.0-8.3)
[2022-10-04] MEDS ORDERED: HYDROmorphone INJ 1 MG/ML SYRINGE IV STA (09:57)
--- NOTE | 2022-10-04 10:29 | Palliative Care Consultation ---
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 Pt would like to return home with hospice. His primary caregiver is his long time partner, Liz. 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 Liz is in her mid 70s now, and at the time they met had just had a heart attack and open heart surgery. (2) Advanced care planning/counseling discussion: See #3 (3) Counseling regarding end of life decision making: * pt has a very tiffanie awareness of his limited prognosis. He wants to spend this time at home. Liz asked about what to expect as his disease progresses and also when he moves into a more active dying process. * The following information, "WHAT TO EXPECT WHEN THE PATIENT IS DYING (from Josue Man MD, PhD)" was provided: * Introduction Family members look to the medical team to help them know what to expect when a loved one is dying. No matter the underlying causes, there is a common final pathway that most patients travel. Indicate your desire to be helpful. Say, Many families like to know what may happen so they will be prepared, is that true for you? If they say yes, describe the features on this list and answer their questions. 1. Social Withdrawal is normal for the dying patient as the person becomes less concerned about his or her surroundings. Separation begins first from the world no more interest in newspaper or television, then from people no more neighbors visiting, and finally from the children, grandchildren and perhaps even those persons most loved. With this withdrawal comes less of a need to communicate with others, even with close family. 2. Food: The patient will have a decreased need for food and drink as the body is preparing to . This is one of the hardest things for some family to accept. There is a gradual decrease in interest in eating and appetiteeven for their favorite foods. Interest may come and go. The patient is not starving to deaththis reflects the underlying disease. Liquids are preferred to solidsfollow the patients lead and do not force feed. 3. Sleep: The patient will spend more and more time sleeping; it may be difficult for them to keep their eyes open. This is a result of a change in the bodys metabolism as a result of the disease. Tell family to spend more time with the patient during those times when he/she is most alert; this might be the middle of the night. 4. Disorientation: The patient may become confused about time, place and the identity of people around him/her. He/she may see people who are not there, such as family members who have already . Sometimes patients describe welcoming or beckoning. While the patient may not be distressed, it is frequently dist ressing to family or health floor care technician. Gently orient the patient if he or she asks. There is no need to correct the patient if he or she is not distressed. 5. Restlessness: The patient may become restless and pull at the bed linens. These symptoms are also a change in the bodys metabolism. Talk calmly and assuredly with the patient so as not to startle or frighten them. If the patient is a danger to himself or others, you may prescribe sedating neuroleptics (e.g.chlorpromazine), or neuroleptics (e.g. haloperidol) in combination with benzodiazepines (e.g. lorazepam), to help the patient rest. 6. Decreased Senses: Clarity of hearing and vision may decrease. Soft lights in the room may prevent visual misinterpretations. Never assume that the patient cannot hear you, as hearing is the last of the five senses to be lost. 7. Incontinence of urine and bowel movements is often not a problem until is very near. Invite family to participate in direct care; the nurse can help p lace absorbent pads under the patient for more comfort and cleanliness, or a urinary catheter may be used. The amount of urine will decrease and the urine become darker as becomes near. 8. Physical Changes as approaches: a. The blood pressure decreases; the pulse may increase or decrease. c. The body temperature can fluctuate; fever is common. d. There is increased perspiration often with clamminess. e. The skin color changes: flushed with fever, bluish with cold. A pale yellowish pallor (not to be confused with jaundice) often accompanies approaching . f. Breathing changes also occur. Respirations may increase, decrease or become irregular; periods of no breathing (apnea) are common. g. Congestion will present as a rattling sound in the lungs and/or upper throat. This occurs because the patient is too weak to clear the throat or cough. The congestion can be affected by positioning, may be very loud, and sometimes just comes and goes. Anticholinergic medications (like scopolamine or glycopyrrolate) can help (see Fast Fact #109). Elevating the head of bed and swabbing the mouth with oral swabs give comfort and give the family something to do. h. The arms and legs may become cool to the touch. The hands and feet become purplish. The knees, ankles and elbows are blotchy. These symptoms are a result of decreased circulation. i. The patient will enter a coma before and not respond to verbal or tactile stimuli. HOW TO KNOW THAT HAS OCCURRED No breathing and heartbeat. Loss of control of bowel or bladder. No response to verbal commands or gentle shaking. Eyelids slightly open; eyes fixed on a certain spot. Jaw relaxed and mouth slightly open. Acknowledgement: This Fact Fact was adapted with permission from a family information handout (The Blue Sheet) given to families of [facility]. References 1. Rohith Wilburn, Jorge I. The terminal phase. In: Roni Gimenez, Jamel GILLC, Yanni Fragoso, eds. [employer] Textbook of Palliative Medicine. 2nd ed. [place], [place]: [employer]; 1998. 2. Jaxon J, Frye C. Care of the dying patient: the last hours or days of life. BMJ. 2003; 326(5328):30-4. 3. Lazarus FD, pancho Mims CF, Tom LL. Competency in End of Life Care: the last hours of living. J Palliat Med. 2003; 6(4):605-613. * We discussed changes pt may move through in the dying process including but not limited to sleeping more, disorientation when awake, restlessness, diminished senses/inability to respond to stimulus although ability to be aware of them remains intact longer, changes in body temperatures, skin changes/mottling/cyanosis, respiratory pattern changes, oral secretions. Family verbalized understanding. The goal is to assure a peaceful . * Brant has some fractured relationships in his life. He openly shares about his episodes of "screwing up" and opportunities lost for building connections. He has a daughter he is estranged from. I spoke with him about recommendations from Cherie Barrera MD at the [facility]:there are four simple phrases: Please forgive me, I forgive you, Thank you, and I love you which carry enormous power to mend, nurture relationships and inner lives. These four phrases and the sentiments they convey can help resolve interpersonal difficulties with integrity and wendi, providing a path to emotional wellbeing, allows patients/families to live lives with integrity/wendi, help reconcile the rifts that divide people, and cut through "old history." Per Dr. Barrera, if we in healthcare attend only to the physiol ogic, without intending to we are inadvertently abandoning people to figure out how to live through these difficult times of life by themselves. (4) Encounter for hospice care discussion: I have provided education about the hospice benefit. Hospice is an interdisciplinary program offered by nurses, nurses aides, social workers, chaplains and a medical claims processor for patients with a terminal condition and a life expectancy of less than 6 months. The goal would be to improve the quality of life of the patient in their home setting (home, snf, inpatient hospice setting) by providing symptoms management, psychosocial and spiritual support. However, they cannot offer 24 hours care and if the family is unable to provide that care, they will have to consider personal care with out of pocket cost vs. snf placement. (5) End stage liver disease: Present on Admission?: Yes (6) Dyspnea and respiratory abnormalities: Present on Admission?: Yes (7) Acute respiratory failure with hypoxia: (8) Weakness generalized: Present on Admission?: Yes Plan * Met with pt and giovanni bran at bedside. Pt has a clear understanding of his advanced medical issues, end stage liver disease and lack of fixable/curable/reversible issues. WE have agreed to move to a comfort plan of care, orders written. He does not want to in the hospital. He does not want more labs, testing etc. He states he knows time is running out and he wants to make the most of that at home where he is the happiest. * He has expressed a wish to go home, giovanni other is supportive. It is noted that she is a little bit older than he and uses a cane for ambulation. He is estranged from his daughter. We spoke about opportunity to reconnect/seek some resolution for these issues at this time/see above. * I have updated primary team and care mgt, pt would like to go home with [facility] as soon as he is able. Jenna Hill DNP Clinical Director, Palliative Medicine History of Present Illness Reason for Consultation: "goals of care, considering hospice" Attending Physician: Gurmeet Massey MD Allergies Allergy/AdvReac Type Severity Reaction Status Date / Time INHALED ANTIHISTAMINES Allergy Severe THROAT Uncoded 09/20/22 08:35 SWELLS SHUT Home Medications Medication Instructions Recorded Confirmed Type allopurinol 100 mg tablet 100 mg PO DAILY 09/17/22 09/17/22 History ascorbic acid (vitamin C) 500 mg 500 mg PO DAILY 09/17/22 09/17/22 History tablet (Vitamin C) buspirone 5 mg tablet 5 mg PO BID 09/17/22 09/17/22 History cyanocobalamin (vitamin B-12) 500 mcg sublingual DAILY 09/17/22 09/17/22 History 1,000 mcg sublingual tablet diazepam 10 mg tablet 10 mg PO BID PRN Anxiety 09/17/22 09/17/22 History diphenoxylate-atropine 2.5 1 tab PO QID PRN Diarrhea 09/17/22 09/17/22 History mg-0.025 mg tablet duloxetine 30 mg capsule,delayed 30 mg PO BID 09/17/22 09/17/22 History release furosemide 20 mg tablet (Lasix) 20 mg PO DAILY 09/17/22 09/17/22 History lurasidone 60 mg tablet (Latuda) 60 mg PO DAILY 09/17/22 09/17/22 History metformin 1,000 mg tablet 1,000 mg PO BIDM 09/17/22 09/17/22 History metoprolol succinate 100 mg 100 mg PO DAILY 09/17/22 09/17/22 History tablet,extended release 24 hr pantoprazole 40 mg tablet,delayed 40 mg PO DAILY 09/17/22 09/17/22 History release pregabalin 300 mg capsule 300 mg PO BID 09/17/22 09/17/22 History tamsulosin 0.4 mg capsule 0.4 mg PO HS 09/17/22 09/17/22 History topiramate 100 mg tablet 100 mg PO BID 09/17/22 09/17/22 History PSYLLIUM or GUAR GUM FIBER SUP 1 pkg PO QAM #30 packets 09/23/22 Rx [METAMUCIL or NUTRISOURCE FIBER SUPPLEMENT] Patient History Medical History (Updated 10/04/22 @ 10:25 by Jenna Hill DNP) Anemia Chronic kidney disease, stage 4 (severe) Cirrhosis CKD (chronic kidney disease) End stage liver disease Leukocytosis LGI bleed Surgical History H/O rectal polypectomy History of colonoscopy Social History Smoking Status: Current every day smoker Cigarettes Per Day: 1 pack q 2 weeks; Second Hand Exposure: Yes; Hx Alcohol Use: No Hx Substance Use: No Preferred Language: Wolof Communication Ability: Effective Gamma Ray Operator Required: No Beliefs That Will Affect Care: None marital status: Life Partner Current Living Situation: Spouse Current Living Situation Comment: lives with aranza Hill Feels Safe at Home: Yes Assistive Devices: Cane and Walker Review of Systems Review of Systems: All systems reviewed & are unremarkable except as noted in Subjective and Unobtainable due to cognitive status Physical Exam Physical Exam: Frail gentleman, appears older than stated age, critically c hronically ill appearing. Resting in bed, partner Liz at bedside. perrl, eomi's, +icteric sclera mild resp distress with conversational dyspnea noted. there is mild use of accessory muscles. S1S2, no gross JVD. Abd softly, mildly tender R>L on palpation; Awake to self/place/year. Drifts off easily and becomes very tangential in discussion/veers off topic often/repetitive. Skin pale/jaundiced Results & Data ([facility]) Vital Signs (Past 12 Hours) Vital Signs Temp Pulse Pulse Resp BP BP Pulse Ox 10/04/22 08:00 36.8 C 96 H 18 90/64 L 95 10/04/22 07:39 102 H 10/04/22 05:37 92 H 18 98 10/04/22 03:06 36.6 C 89 16 94/59 L 97 10/04/22 01:51 87 10/03/22 23:11 36.5 C 89 16 93/65 L 100 O2 Del Method O2 Flow Rate 10/04/22 08:00 Nasal Cannula 2 10/04/22 07:39 10/04/22 05:37 Nasal Cannula 2 10/04/22 03:06 Nasal Cannula 2 10/04/22 01:51 10/03/22 23:11 Nasal Cannula 2 Laboratory Results labs and imaging reviewed PG Care Time/CCT Total # of Minutes Spent Total Time Spent: 90 Total Time Spent with Patient: Total time spent is greater than 50% in coordination of care (as documented) at patient's floor/unit and/or counseling patient:yes Prolonged Care Time Prolonged Care Time: [place] [address] Inpt Consult Level 5 Patient Type New Medical Decision Making Moderate Complexity Diagnoses Palliative care encounter Z51.5 Advanced care planning/counseling discussion Z71.89 Counseling regarding end of life decision making Z71.89 Encounter for hospice care discussion Z71.89 End stage liver disease K72.10 Dyspnea and respiratory abnormalities R06.00; R06.89 Acute respiratory failure with hypoxia J96.01 Weakness generalized R53.1 Additional Codes Prolonged Care Time - Prolonged Care Time: Yes ([id number])
--- NOTE | 2022-10-04 10:37 | Nephrology Progress Note ---
Date of Service October 04, 2022 Assessment & Plan (1) Chronic kidney disease, stage 4 (severe): Plan: Creatinine increased. UOP reduced. Prognosis is unfortunately guarded. Continue midodrine for BP support. Discussed possible additional IVF and starting Octreotide today but Pop states that he plans to transition home with hospice. (2) Metabolic acidosis: Plan: Continue oral NaHCO3 1300 BID. (3) Hypomagnesemia: (4) Hypokalemia: Plan: Improved with replacement. GI losses persist. Furosemide held. (5) End stage liver disease: Plan: MELD 26. Goals of care reviewed. Darius told me this AM that he plans to return home with hospice. (6) Anemia: Plan: With iron deficiency. Epogen 97544 units x 1 today. No signs of active bleeding. Admission and Anticipated Discharge Date Admission Date: September 30, 2022 Subjective No acute events overnight. Darius reports continued diarrhea. Appetite is poor. He states that he is tired and that he just wants to go home. He communicated that he plans to return home with hospice today. Review of Systems Review of Systems: All systems reviewed & are unremarkable except as noted in HPI & below Constitutional: + fatigue, + weakness and + anorexia Physical Exam Constitutional: + thin and + frail appearing; no acute distress Eyes: no scleral abnormality and no corneal abnormality ENMT: Ears: + hearing impairment Mouth: + dry oral mucous membranes Neck: normal visual inspection and trachea midline Respiratory: normal respiratory effort Auscultation: lungs clear to auscultation bilaterally Cardiovascular: Rate/Rhythm: regular rate Heart Sounds: normal S1 and normal S2 Extremities: no edema Gastrointestinal (Abdomen): Inspection/Auscultation: + abdomen distended Percussion/Palpation: abdomen nontender Musculoskeletal: Extremities: no cyanosis and no clubbing Skin: + turgor decreased; no lesions Neurologic: Motor/Sensory: no tremor and no asterixis Psychiatric: Orientation: alert and oriented x 3 Results & Data ([facility]) Vital Signs (Past 12 Hours) Vital Signs Temp Pulse Pulse Resp BP BP Pulse Ox 10/04/22 08:00 36.8 C 96 H 18 90/64 L 95 10/04/22 07:39 102 H 10/04/22 05:37 92 H 18 98 10/04/22 03:06 36.6 C 89 16 94/59 L 97 10/04/22 01:51 87 10/03/22 23:11 36.5 C 89 16 93/65 L 100 O2 Del Method O2 Flow Rate 10/04/22 08:00 Nasal Cannula 2 10/04/22 07:39 10/04/22 05:37 Nasal Cannula 2 10/04/22 03:06 Nasal Cannula 2 10/04/22 01:51 10/03/22 23:11 Nasal Cannula 2 Laboratory Results Laboratory Results - last 24 hr 10/03/22 10/03/22 10/03/22 11:22 16:16 20:11 WBC RBC Hgb Hct MCV MCH MCHC RDW Std Deviation RDW Coeff of Suzanne Plt Count MPV Platelet Estimate Sodium Potassium Chloride Carbon Dioxide Anion Gap BUN Creatinine Est Cr Clr Drug Dosing Est GFR ( Amer) Est GFR (Non-Af Amer) BUN/Creatinine Ratio Glucose POC Glucose 228 H 271 H 247 H Calcium Total Bilirubin AST ALT Alkaline Phosphatase Total Protein Albumin Globulin Albumin/Globulin Ratio 10/04/22 10/04/22 10/04/22 07:01 07:03 07:35 WBC 10.62 RBC 2.72 L Hgb 8.3 L Hct 23.7 L MCV 87.1 MCH 30.5 MCHC 35.0 RDW Std Deviation 61.9 H RDW Coeff of Suzanne 22.2 H Plt Count 20 L* MPV 10.8 Platelet Estimate Decreased L Sodium 140 Potassium 3.5 Chloride 112 H Carbon Dioxide 17 L Anion Gap 11 BUN 35 H Creatinine 3.12 H D Est Cr Clr Drug Dosing 27.8 Est GFR ( Amer) 24.0 Est GFR (Non-Af Amer) 20.7 BUN/Creatinine Ratio 11.2 Glucose 126 H POC Glucose 147 H Calcium 8.5 Total Bilirubin 1.2 H AST 20 ALT 22 Alkaline Phosphatase 109 H Total Protein 5.6 L Albumin 3.4 Globulin 2.2 L Albumin/Globulin Ratio 1.5 PG Care Time/CCT Total # of Minutes Spent Total Time Spent with Patient: Total time spent is greater than 50% in coordination of care (as documented) at patient's floor/unit and/or counseling patient: Coding Level of Care Code 56165 Subseq Hosp Care Lvl 3 Diagnoses Chronic kidney disease, stage 4 (severe) N18.4 Metabolic acidosis E87.20 Hypomagnesemia E83.42 Hypokalemia E87.6 End stage liver disease K72.10 Anemia D64.9 Anemia type: unspecified type (1) Anemia Anemia type: unspecified type Qualified Code(s): D64.9 - Anemia, unspecified
[2022-10-04] MEDS ORDERED: LORazepam 1 MG TAB PO PRN (11:10)
[2022-10-04] MEDS ORDERED: haloperidoL 1 MG TAB PO PRN (11:10)
[2022-10-04] MEDS ORDERED: HYDROmorphone HCL 2 MG TAB PO PRN (11:13)
[2022-10-04] MEDS ORDERED: EPOETIN ALFA 10,000 UNITS/ML VIAL SQ ONE (11:15)
[2022-10-04] MEDS ORDERED: ALBUT/IPRATROP 3MG/0.5MG NEB 3 ML VIAL NEB PRN (12:26)
--- NOTE | 2022-10-04 14:52 | Hospitalist Progress Note ---
Date of Service October 04, 2022 Assessment & Plan (1) Comfort measures only status: Plan: - Had a lengthy discussion at bedside with patient regarding his goals of care on 10/03 - He understands and seems to have good insight into his disease process and understands that his prognosis is poor. - He is open to speaking with palliative medicine team, formal consult placed. He tells me that he would rather spend what time he has left at home with his significant other, Jania, and his rimmaua. - Did ask again regarding his code status, he still stated he would want to be resuscitated but that if he did not have hope for a meaningful recovery that he would want Jania to discontinue life support. He states that he has a living will and she is his POA. He has asked me to provide her with an update, of which I did this afternoon. She did tell me that according to Brant's living will, he has indicated that he does not want to be a full code. * Discussed again at bedside with Brant on 10/04, he confirmed that he wishes to be made a DNR/DNI - Ordered a dose of IV Dilaudid 1mg for pain control - Palliative care met with Brant and Jania this morning, it was decided to pursue home with hospice and transition to comfort care only * Palliative initiating INSPECTING ENGINEER orders - Tele discontinued, move to med/surg, no further labs will be ordered - Case management assisting in d/c planning, hoping to have it arranged so that he can go home tomorrow 10/05 w/ [facility] (2) End stage liver disease: Plan: - S/P Paracentesis AM 10/01 for 5.3L transudative ascitic fluid aspirated per note - Albumin 25gm IV x 3 doses given paracentesis - Home meds continued including lasix 20mg daily (AM dose of Lasix held this AM d/t soft pressures) - On Metoprolol I presume for varices, but this has been discontinued d/t hypotension - Started on Midodrine 10mg TID on 10/03 for BP support - Spoke to Dr. Chaudhry, plan to speak again tomorrow to determine if improvement could consider tx for transplant eval - I have emphasized that his prognosis is poor given his complex case with hy potension, oliguric renal insufficiency - Maddrey's score 41.1 points indicating poor prognosis, greater than 32 points notes poor prognosis and pt may benefit from glucocorticoid therapy, started on Prednisolone 40mg daily on 10/02 - MELD score now up to 26 (3) Acute respiratory failure with hypoxia: Plan: - Developed hypoxia yesterday afternoon requiring 3L of supplemental O2 - CXR obtained demonstrating bibasilar opacities -- fluid v developing pneumonitis - Intended to cover empirically with abx (Zosyn ordered) but attending discontinued these - Added Duonebs QIDR and q2h PRN shortness of breath - Continued on supplemental O2 - Repeat CXR later on 10/02 noted some improvement which favored likely a component of pulmonary edema - Still has RML/RLL opacity on repeat CXR and suspect that this represents developing aspiration pneumonia, supported by bumped procal and now w/ leukocytosis - Started Unasyn for aspiration pna coverage on 10/03 (4) Aspiration into airway: Plan: - Evaluated today by DECAL CUTTER - For swallowing study tomorrow - Modified diet as ordered: nectar thick liquids and minced and moist diet - Pills can be given in pudding - Abx treatment as above (5) Electrolyte abnormality: Plan: - Labs on 10/01 K+ 2.9 and Mg++ 1.1 - Replacement ordered for both - Continues KCl 20meq PO BID in meantime as well as lasix 20mg PO - Magnesium level this AM 1.9, not on any oral supplementation * Of note, pt also having reported diarrhea (see below), receipt of IV mag repl acement could certainly have exacerbated the diarrhea (6) Diarrhea: Plan: - Patient's had months worth of diarrhea according to the patient. - He has proctocolitis seen on his imaging. - He was treated with Rocephin during his last hospital stay for consideration of SBP prophylaxis but appears received 6 days IV rocephin, GI notes w/ EGD do rec 7 day course - Ordered stool studies -- has not had a BM since this order was placed - Cipro/Flagyl IV started on admit but does not appear to examine as acute abdomen/peritonitis at this time --> abx d/c'd on 10/02 (7) CKD (chronic kidney disease): Plan: Stage 3 - Last admit, Cr up to 3.35 on admit, currently 2.51 - Had spironolactone discontinued last admission - Improvement on lasix continued, monitor BMP - Renal dose meds/avoid nephrotoxins as able - Nephrology consulted to assist with diuretic management in patient w/ cirrhosis/CKD as well as bicarb 16 on labs (presumed from diarrheal losses) - Continue Sodium bicarb - Renal function relatively stable over the last 48 hours but now oliguric (8) Anemia: Plan: - Hgb is 10.7 --> 9.5 --> 8.0, no active bleeding - suspect some dilutional given large volume ascites/discontinuation of spironolactone at discharge last admission this month - Not surprising that hgb continues to drop in setting of IVF resuscitation - Will continue to monitor - Has 2 units PRBCs on hold (9) Hypomagnesemia: Plan: - as above, monitor on repeat/additional replacement as needed (10) Metabolic acidosis: Plan: 2nd to worsening renal function - Nephrology following - Continue Sodium bicarb Plan Anticipate d/c home with hospice tomorrow 10/05. Plan d/w Dr. Massey. Admission and Anticipated Discharge Date Admission Date: September 30, 2022 Subjective Patient seen on daily rounds this morning. During my visit, was also being seen by Dr. Vallejo from nephrology. Pt verified this AM that he wants to be home with Jania and his dog. Confirmed his wishes to be DNR/DNI and requests to go home with hospice as soon as possible. Palliative medicine discussed goals of care with him and Jania this morning, he has been made full comfort measures. Review of Systems Review of Systems: All systems reviewed and are unremarkable except as noted in HPI and below. Denies fever, chills, headache, nasal congestion, sore throat, chest pain, shortness of breath, palpitations, orthopnea, PND, abdominal pain, n/v, constipation, dysuria, hematuria, frequency, back pain, joint pain or swelling, skin lesions or rashes. Physical Exam Physical Exam: GENERAL: 61 yo chronically ill appearing, deconditioned WM, NAD. LUNGS: Nonlabored. Coarse rhonchi and wheezes appreciated throughout. CARDIOVASCULAR: Regular rate and rhythm. ABDOMEN: Soft, mildly distended tender to palp RUQ. BS normoactive throughout. : Singh with small amount of concentrated urine in bag EXTREMITIES: Trace LE edema. Non-tender. Peripheral pulses +2/4. NEUROLOGIC: A&O x3. PSYCHIATRIC: Cooperative. Appropriate mood and affect. SKIN: chronic venous stasis skin changes b/l LE, mildly jaundiced Results & Data Results & Data ([facility]) Vital Signs (Past 12 Hours) Vital Signs Temp Pulse Pulse Pulse Resp BP BP 10/04/22 11:08 36.7 C 79 20 105/66 10/04/22 11:00 106 H 18 10/04/22 10:30 115 H 23 10/04/22 10:00 110 H 20 10/04/22 09:30 108 H 16 10/04/22 09:02 121 H 19 10/04/22 09:02 103/45 L 10/04/22 09:00 115 H 16 10/04/22 08:30 108 H 19 10/04/22 08:30 106/67 10/04/22 08:19 109/58 L 10/04/22 08:19 111 H 20 10/04/22 08:00 108 H 18 10/04/22 07:30 107 H 28 H 10/04/22 07:00 102 H 8 L 10/04/22 11:10 100 H 22 10/04/22 08:00 36.8 C 96 H 18 90/64 L 10/04/22 07:39 102 H 10/04/22 05:37 92 H 18 10/04/22 03:06 36.6 C 89 16 BP Pulse Ox O2 Del Method O2 Flow Rate 10/04/22 11:08 95 Room Air 10/04/22 11:00 10/04/22 10:30 10/04/22 10:00 10/04/22 09:30 10/04/22 09:02 10/04/22 09:02 10/04/22 09:00 10/04/22 08:30 10/04/22 08:30 10/04/22 08:19 10/04/22 08:19 10/04/22 08:00 10/04/22 07:30 10/04/22 07:00 10/04/22 11:10 95 Nasal Cannula 2 10/04/22 08:00 95 Nasal Cannula 2 10/04/22 07:39 10/04/22 05:37 98 Nasal Cannula 2 10/04/22 03:06 94/59 L 97 Nasal Cannula 2 Laboratory Results 10/04/22 07:01 10/04/22 07:03 PG Care Time/CCT Total # of Minutes Spent Total Time Spent with Patient: Total time spent is greater than 50% in coordination of care (as documented) at patient's floor/unit and/or counseling patient: Coding Level of Care Code 05079 Subseq Hosp Care Lvl 3 Diagnoses Comfort measures only status Z51.5 End stage liver disease K72.10 Acute respiratory failure with hypoxia J96.01 Aspiration into airway T17.908A Electrolyte abnormality E87.8 Diarrhea R19.7 CKD (chronic kidney disease) N18.9 Chronic kidney disease stage: unspecified stage Anemia D64.9 Anemia type: unspecified type Hypomagnesemia E83.42 Metabolic acidosis E87.20 (1) Anemia Anemia type: unspecified type Qualified Code(s): D64.9 - Anemia, unspecified (2) CKD (chronic kidney disease) Chronic kidney disease stage: unspecified stage Qualified Code(s): N18.9 - Chronic kidney disease, unspecified
[2022-10-04] MEDS: TAMSULOSIN HCL 0.4 MG CAP PO SCH (21:35)
--- NOTE | 2022-10-05 09:36 | Nephrology Progress Note ---
Date of Service October 05, 2022 Assessment & Plan (1) Chronic kidney disease, stage 4 (severe): (2) End stage liver disease: (3) Anemia: Plan Goals of care transitioned to SMALL BOAT ENGINEER. Noted plans to return home with hospice. Suggest continuing midodrine for BP support. Continue oral NaHCO3 as tolerated. Volume status acceptable. No additional diuretics at this time. Nephrology will sign off. Please call with questions or concerns. Admission and Anticipated Discharge Date Admission Date: September 30, 2022 Subjective No acute events overnight. No complaints this AM. Review of Systems Review of Systems: All systems reviewed & are unremarkable except as noted in HPI & below Physical Exam Constitutional: + thin and + frail appearing; no acute distress Eyes: no scleral abnormality and no corneal abnormality ENMT: Mouth: + dry oral mucous membranes Neck: normal visual inspection and trachea midline Respiratory: normal respiratory effort Cardiovascular: Rate/Rhythm: regular rate Extremities: no edema Gastrointestinal (Abdomen): Inspection/Auscultation: + abdomen distended Percussion/Palpation: abdomen nontender Musculoskeletal: Extremities: no cyanosis and no clubbing Skin: + turgor decreased; no lesions Neurologic: Motor/Sensory: no tremor and no asterixis Psychiatric: Orientation: alert Results & Data ([facility]) Laboratory Results Laboratory Results - last 24 hr 10/04/22 11:40 POC Glucose 119 H PG Care Time/CCT Total # of Minutes Spent Total Time Spent with Patient: Total time spent is greater than 50% in coordination of care (as documented) at patient's floor/unit and/or counseling patient: Coding Level of Care Code 89721 Subseq Hosp Care Lvl 3 Diagnoses Chronic kidney disease, stage 4 (severe) N18.4 End stage liver disease K72.10 Anemia D64.9 Anemia type: unspecified type (1) Anemia Anemia type: unspecified type Qualified Code(s): D64.9 - Anemia, unspecified
[2022-10-05] MEDS: PREGABALIN 150 MG CAP PO SCH (10:39)
[2022-10-05] MEDS: busPIRone 5 MG TAB PO SCH (10:54)
[2022-10-05] MEDS: ASCORBIC ACID 500 MG TAB PO SCH (10:54)
[2022-10-05] MEDS: allopurinoL 100 MG TAB PO SCH (10:54)
[2022-10-05] MEDS: MIDODRINE HCL 10 MG TAB PO SCH ×2 (10:54→14:58)
[2022-10-05] MEDS: TOPIRAMATE 100 MG TAB PO SCH (10:55)
[2022-10-05] MEDS: LURASIDONE HCL 40 MG TAB PO SCH (10:55)
[2022-10-05] MEDS: DULoxetine HCL 30 MG CAP PO SCH (10:55)
[2022-10-05] MEDS: CYANOCOBALAMIN (B-12) 500 MCG TABLET PO SCH (10:55)
[2022-10-05] MEDS: PANTOprazole 40 MG TAB PO SCH (10:55)
[2022-10-05] MEDS: PSYLLIUM or GUAR GUM FIBER POWDER PACKET PO SCH (10:55)
[2022-10-05] MEDS: prednisoLONE sod phosphate 15 MG/5 ML PO SCH (10:55)
[2022-10-05] MEDS: SODIUM BICARBONATE 650 MG TAB PO SCH (10:55)
--- NOTE | 2022-10-05 14:22 | Discharge Summary ---
Date of Service October 05, 2022 Principal Diagnosis end stage liver disease Discharge Exam patient has been sleepy most day. he was awake aroung 1315 when I met him frst time. Could not answer any question of orientation but told me his bhavya 's name Restless Abd breathing Chest anteriorly CTA CVS : s1 s2 Ext : no edema Cn s: moves all limbs Skin- intact post abd wall. Discharge Data Allergies Allergy/AdvReac Type Severity Reaction Status Date / Time INHALED ANTIHISTAMINES Allergy Severe THROAT Uncoded 09/20/22 08:35 SWELLS SHUT Consultations 09/30/22 11:30 ED Decision to Admit Stat 10/01/22 08:06 Consult Gastroenterology Routine 10/01/22 14:14 Consult Nephrology Routine 10/01/22 17:11 HIM [Consult Health Information Management] Routine 10/03/22 14:47 Consult Palliative Care Routine Ordered Studies 09/30/22 10:06 CT abd pelvis wo con Stat 10/01/22 09:33 US paracentesis abd w/image Routine Hospital Course (1) Comfort measures only status: - Had a lengthy discussion at bedside with patient regarding his goals of care on 10/03 - He understands and seems to have good insight into his disease process and understands that his prognosis is poor. - Palliative care saw him- gave his significant other instructions on the dying process- see their excellent 10/04 note I met him around 1.20 pm on day of discharge : he was awake but not eating anything. He had abd breathing and worsening hypoxia. He seemed confritable He named his edy , but could not answer any orientation questionsding to Brant's living will, he has indicated that he does not want to be a full code. * Discussed at bedside by otehr providers 10/04, he confirmed that he wishes to be made a DNR/DNI - Ordered a dose of IV Dilaudid 1mg for pain control -discharge on liquid morphine and buccal ativan both prn Patient near terminal it seems- will give liquid augmentin as may prolong life - has e/o pneumonia chest X ray. (2) End stage liver disease: - S/P Paracentesis AM 10/01 for 5.3L transudative ascitic fluid aspirated per note - Albumin 25gm IV x 3 doses given paracentesis - Home meds continued including lasix 20mg daily (AM dose of Lasix held this AM d/t soft pressures) - On Metoprolol I presume for varices, but this has been discontinued d/t hypotension - Started on Midodrine 10mg TID on 10/03 for BP support prednisolone gievn two days but stopped at discharge w worsening resp status - MELD score now up to 26 -- eor evaluation 2 days before discharge (3) Acute respiratory failure with hypoxia: worsening hypoxia thru the day on discharge day 10/05- abdominal breathing - CXR obtained demonstrating bibasilar opacities 10/04-- fluid v developing pneumonitis - Added Duonebs QIDR and q2h PRN shortness of breath - Continued on supplemental O2 - Repeat CXR later on 10/02 noted some improvement which favored likely a component of pulmonary edema - Still has RML/RLL opacity on repeat CXR and suspect that this represents developing aspiration pneumonia, supported by bumped procal and now w/ leukocytosis - Started Unasyn for aspiration pna coverage on 10/03 - liquid augmentin given after d/w pharmacy at discharge (4) Aspiration into airway: - Evaluated by PILOT PLANT OPERATOR 10/04- FEES planned 10/05 but canceled. - Modified diet as ordered: nectar thick liquids and minced and moist diet-- obtunded and no po intake on discharge day - Pills can be given in pudding- most stopped at discharge - Abx treatment at discharge - comfort care (5) Electrolyte abnormality: - Labs on 10/01 K+ 2.9 and Mg++ 1.1 - Replacement ordered for both - Continues KCl 20meq PO BID in meantime as well as lasix 20mg PO - Magnesium level this AM 1.9, not on any oral supplementation * Of note, pt also having reported diarrhea (see below), receipt of IV mag replacement could certainly have exacerbated the diarrhea (6) Diarrhea: - Patient's had months worth of diarrhea according to the patient. - He has proctocolitis seen on his imaging. - He was treated with Rocephin during his last hospital stay for consideration of SBP prophylaxis but appears received 6 days IV rocephin, GI notes w/ EGD do rec 7 day course - Ordered stool studies -- has not had a BM since this order was placed - Cipro/Flagyl IV started on admit but does not appear to examine as acute abdomen/peritonitis at this time --> abx d/c'd on 10/02 (7) CKD (chronic kidney disease): Stage 3 - Last admit, Cr up to 3.35 on admit, currently 2.51 - Had spironolactone discontinued last admission lasix stopped - Renal dose meds/avoid nephrotoxins as able - Nephrology consulted to assist with diuretic management in patient w/ cirrhosis/CKD as well as bicarb 16 on labs (presumed from diarrheal losses) - Continue Sodium bicarb - Renal function relatively stable over the last 48 hours but oliguric (8) Anemia: - Hgb WAS 10.7 --> 9.5 --> 8.0, no active bleeding - suspect some dilutional given large volume ascites/discontinuation of spironolactone at discharge last admission this month no transfusion (9) Hypomagnesemia: -NO LABS LAST 24 H HERE (10) Metabolic acidosis: 2nd to worsening renal function - Nephrology following - Continue Sodium bicarb at home Plan d/c tp home hospice Total Time Total Time Spent Total Time Spent (In Minutes): 55 Discharge Plan Discharge Items Patient Disposition: Hospice - Home Reason For Visit: HYPOKALEMIA, HYPOMAGNESEMIA, DIARRHEA Discharge Diagnosis: end stage liver disease, respiratory failure, dysphagia Condition on Discharge: Critical Follow-up/Referrals: Almas Egan M.D. [Primary Care Provider] - Addtl Attending Provider Instructions: follow instructions re comfort care of the dying given by palliative care 10/04/2022 Stand-Alone Forms: My [facility] [employer] Medications and DC Order Prescriptions: New amoxicillin-pot clavulanate 400-57 mg/5 mL Suspension For Reconstitution 400 mg PO BID Qty: 50 0RF Rx Instructions: 6 ML BID sodium bicarbonate 650 mg Tablet 1,300 mg PO BID Qty: 7 0RF morphine 10 mg/5 mL solution 5 mg PO Q6H PRN (Reason: pain) Qty: 150 0RF ipratropium-albuterol 0.5 mg-3 mg(2.5 mg base)/3 mL Solution For Nebulization 3 ml NEB QIDR PRN (Reason: shortness of breath) Qty: 3 4RF lorazepam [Ativan] 1 mg tablet 1 mg buccal Q8H PRN (Reason: agitation) Qty: 20 2RF lorazepam 1 mg/0.5 mL syringe 1 mg PO Q8H PRN (Reason: anxiety) Qty: 30 0RF morphine concentrate 100 mg/5 mL (20 mg/mL) solution 5 mg PO Q6H PRN (Reason: pain) Qty: 15 0RF Continued topiramate 100 mg Tablet 100 mg PO BID pregabalin 300 mg Capsule 300 mg PO BID Discontinued buspirone 5 mg Tablet 5 mg PO BID metoprolol succinate 100 mg tablet extended release 24 hr 100 mg PO DAILY diphenoxylate-atropine 2.5-0.025 mg tablet 1 tab PO QID PRN (Reason: Diarrhea) allopurinol 100 mg Tablet 100 mg PO DAILY ascorbic acid (vitamin C) [Vitamin C] 500 mg Tablet 500 mg PO DAILY tamsulosin 0.4 mg Capsule 0.4 mg PO HS pantoprazole 40 mg Tablet,Delayed Release (Dr/Ec) 40 mg PO DAILY metformin 1,000 mg Tablet 1,000 mg PO BIDM cyanocobalamin (vitamin B-12) 1,000 mcg Tablet, Sublingual 500 mcg SUBLINGUAL DAILY furosemide [Lasix] 20 mg Tablet 20 mg PO DAILY diazepam 10 mg tablet 10 mg PO BID MDD 20 MG/24 HOURS PRN (Reason: Anxiety) duloxetine 30 mg Capsule,Delayed Release(Dr/Ec) 30 mg PO BID Latuda 60 mg tablet 60 mg PO DAILY Psyllium Or Guar Gum Fiber Sup [Metamucil Or Nutrisource Fiber Supplement] 1 pkg PO QAM Qty: 30 0RF Discharge Orders: Discharge Order (Routine); Ordered 10/05/22 Ordered By: Pepito Montana Admission Data Admit Date/Time: 09/30/22 12:07 Attending Provider: Pepito Montana Admit Provider: Franklin Mendoza Primary Care Provider: Almas Egan Other Providers: [facility],Home [facility] ; Franklin Mendoza ; Lino Lafleur ; Laine Robles ; Darlene Reynoso Other Interventions: Discharge Summary Assessment (RN) Last Done: 10/05/22 13:52 Coding Level of Care Code D/C DAY MANAGEMENT >30 MINS Diagnoses Comfort measures only status Z51.5 End stage liver disease K72.10 Acute respiratory failure with hypoxia J96.01 Aspiration into airway T17.908A Electrolyte abnormality E87.8 Diarrhea R19.7 CKD (chronic kidney disease) N18.9 Chronic kidney disease stage: unspecified stage Anemia D64.9 Anemia type: unspecified type Hypomagnesemia E83.42 Metabolic acidosis E87.20
[2022-10-05] MEDS ORDERED: AMOXICILLIN/CLAVULANATE SUSP 400/57 MG 5 ML UDP PO SCH (21:00)
== END 2022-10-05 15:43 | disposition hospice, home (50) | DRG 640 ==
LOC: ED 08:50 → SUATTDRO 12:07 → 2W 12:07 → 2E 10-02 22:20 → 3E 10-04 18:26